=== PATIENT | male | born 1965 | race Caucasian/White ===

== ENCOUNTER 2021-08-08 10:18 | Inpatient (IN) | payer OTHER ==
[~2021-08-08] VITALS: Ht 180.3 cm; Wt 161.7 kg
[2021-08-08 10:55] LABS: Base Excess Venous -7.7 mmol/L; Bicarbonate Venous 18.1 mmol/L (24.0-30.0); PCO2 Venous 40.6 mmHg (38-42)
[2021-08-08 10:56] LABS: pH Blood Venous 7.28 (7.34-7.37)
[2021-08-08 11:00] LABS: BASOPHILS ABSOLUTE AUTO 0.02 K/mm3 (0.00-0.23); BASOPHILS PERCENT AUTO 0 % (0-2); EOSINOPHILS PERCENT AUTO 0 % (0-6); Hematocrit 44.3 % (37.0-53.0); Hemoglobin 14.8 g/dL (13.5-17.5); IMMATURE GRAN ABSOLUTE AUTO 0.06 K/mm3 (0.00-0.10); IMMATURE GRAN PERCENT AUTO 1 % (0-1); LYMPHOCYTES ABSOLUTE AUTO 1.04 K/mm3 (0.84-5.20); LYMPHOCYTES PERCENT AUTO 8 % (21-46); MONOCYTES ABSOLUTE AUTO 0.41 K/mm3 (0.16-1.47); MONOCYTES PERCENT AUTO 3 % (4-13); Mean Corpuscular HGB 32.6 pg (26.0-34.0); Mean Corpuscular HGB Conc 33.4 g/dL (31.5-36.5); Mean Corpuscular Volume 98 fL (80-100); Mean Platelet Volume 10.3 fL (9.1-12.4); NEUTROPHILS ABSOLUTE AUTO 11.03 K/mm3 (1.96-9.15); NEUTROPHILS PERCENT AUTO 88 % (41-73); Platelet Count 163 K/mm3 (150-400); RDW Coefficient Variation 14.6 % (11.7-14.2); RDW Standard Deviation 53.1 fL (35.1-46.3); Red Blood Cell Count 4.54 M/mm3 (4.30-5.90); White Blood Cell Count 12.56 K/mm3 (4.00-11.30)
[2021-08-08 11:15] LABS: Albumin, Blood 2.4 g/dL (3.4-5.0); Albumin/Globulin Ratio 0.5 (0.8-1.8); Bilirubin, Total 0.4 mg/dL (0.1-1.0); Bun/Creatinine Ratio 17.4 (12.0-20.0); Calcium, Blood 8.3 mg/dL (8.5-10.1); Creatinine, Blood 1.84 mg/dL (0.60-1.20); Globulin, Blood 4.7 g/dL (2.2-4.0); Magnesium, Blood 1.7 mg/dL (1.6-2.4); Potassium, Blood 4.7 mmol/L (3.5-5.5); Total Protein, Blood 7.1 g/dL (6.4-8.2); Troponin I 0.08 ng/mL (0.000-0.040)
[2021-08-08] MEDS ORDERED: ZESTRIL40 M1 PO (12:25)
[2021-08-08] MEDS ORDERED: CYCL10 PO (12:25)
[2021-08-08] MEDS ORDERED: Amoxicillin500 M1 PO (12:26)
[2021-08-08] MEDS ORDERED: Potassium Chlo20 ME1 PO (12:26)
[2021-08-08] MEDS ORDERED: GLIMEPIRIDE2 M2 PO (12:27)
[2021-08-08] MEDS ORDERED: METOPROLOL TART25 MG PO (12:27)
[2021-08-08 14:23] LABS: Creatine Kinase MB 3.3 ng/mL (0.0-3.6); Creatine Kinase MB Index 0.1 (0.0-4.0)
[2021-08-08 19:14] LABS: Source, Urine Clean Catch
[2021-08-08 19:19] LABS: Bilirubin, Urine Neg (Neg); Blood, Urine 5+ (Neg); Glucose Qualitative, Urine Neg (Neg); Ketones, Urine 2+ (Neg); Leukocyte Esterase, Urine 1+ (Neg); Nitrite, Urine Neg (Neg); Protein, Urine 4+ (Neg); Specific Gravity, Urine 1.015 (1.003-1.022); Urobilinogen, Urine NORM (Normal)
[2021-08-08 19:28] LABS: Appearance, Urine Clear (Clear); Color, Urine Yellow (P-Yellow)
[2021-08-08 19:36] LABS: Bacteria Few /hpf; Calcium Oxalate Crystals Few /hpf; Squamous Epithelial Cells Few /hpf (Few); White Blood Cells, Urine 0-2 /hpf (0-5)
[2021-08-08 19:37] LABS: U Amphetamine Screen Not Detected; U Barbituate Screen Not Detected; U Benzodiazapine Screen Not Detected; U Buprenorphine Screen Not Detected; U Cannabinoids Screen Not Detected; U Cocaine Screen Not Detected; U Methadone Screen Not Detected; U Methamphetamine Screen Not Detected; U Opiates Screen DETECTED; U Oxycodone Screen Not Detected; U Phencyclidine Screen Not Detected; U Propoxyphene Screen Not Detected
--- NOTE | 2021-08-08 19:45 | NUR ---
ADMISSION NOTES 1700-Rec'd pt from ED, AOX4, c/o SOB with exertion/movement, pt was on CPAP with FIO2 of 80% and SpO2 of 87%,, increased FIO2 to 100% with no improvement, RT called to bedside and settings changed to BIPAP with FIO2 of 100%. Pt's HR was ST and then it changed to A-fib RVR and was confirmed with ECG. HR sustained at 130's to 140's, made the hospitalist aware and consult was placed to beauty sales advisor. Dr. Melchor informed of pt's status, Cardizem 10mg given with no improvement, pt continues to desaturates and became diaphoretic, BG of 192. Order was placed to transfer to ICU, nursing report given to Candy-STACEY, metoprolol 25mg held due to possible intubation and per Dr. Melchor. Pt did not void since he arrived to PCU, made AGENCY DEVELOPMENT MANAGER aware that Toxiology and Urinalysis with culture is still pending and needs to be collected when pt voids. Pt's was at bedside during the entire time of this event.
--- NOTE | 2021-08-08 22:00 | NUR ---
ASSUMED CARE AT 1900 PT ARRIVED TO ICU JUST BEFORE SHIFT CHANGE. AT BEDSIDE. PT IS ALERT/ORIENTED X4 AND USES THE CALL LIGHT APPROPRIATLY. DENIES ANY SOB OR CHEST PAIN. BIPAP DEPENDENT WITH SETTINGS 18/14, FIO2 100%, SPO2 >88%. PT WAS TACHYCARDIC WITH HR 130-150'S; PLAN WAS TO GIVE DILTIAZEM BUT PT CONVERTED TO NSR WITH HR 80-90'S; DILTIAZEM PUSH AND GTT NOT STARTED. PT NOT ANXIOUS. NS INFUSING AT 75ML/HR. SEE SHIFT ASSESSMENT FOR FULL ASSESSMENT.
[2021-08-09 04:47] LABS: BASOPHILS ABSOLUTE AUTO 0.01 K/mm3 (0.00-0.23); BASOPHILS PERCENT AUTO 0 % (0-2); EOSINOPHILS PERCENT AUTO 0 % (0-6); Hematocrit 42.8 % (37.0-53.0); Hemoglobin 14.4 g/dL (13.5-17.5); IMMATURE GRAN ABSOLUTE AUTO 0.04 K/mm3 (0.00-0.10); IMMATURE GRAN PERCENT AUTO 0 % (0-1); LYMPHOCYTES ABSOLUTE AUTO 0.73 K/mm3 (0.84-5.20); LYMPHOCYTES PERCENT AUTO 7 % (21-46); MONOCYTES ABSOLUTE AUTO 0.39 K/mm3 (0.16-1.47); MONOCYTES PERCENT AUTO 4 % (4-13); Mean Corpuscular HGB 32.2 pg (26.0-34.0); Mean Corpuscular HGB Conc 33.6 g/dL (31.5-36.5); Mean Corpuscular Volume 96 fL (80-100); Mean Platelet Volume 10.3 fL (9.1-12.4); NEUTROPHILS PERCENT AUTO 88 % (41-73); Platelet Count 159 K/mm3 (150-400); RDW Coefficient Variation 14.6 % (11.7-14.2); RDW Standard Deviation 51.5 fL (35.1-46.3); Red Blood Cell Count 4.47 M/mm3 (4.30-5.90); White Blood Cell Count 10.07 K/mm3 (4.00-11.30)
[2021-08-09 05:44] LABS: Albumin/Globulin Ratio 0.5 (0.8-1.8); Bilirubin, Total 0.3 mg/dL (0.1-1.0); Bun/Creatinine Ratio 22.2 (12.0-20.0); Calcium, Blood 8.3 mg/dL (8.5-10.1); Creatinine, Blood 1.62 mg/dL (0.60-1.20); Globulin, Blood 4.4 g/dL (2.2-4.0); Magnesium, Blood 2.1 mg/dL (1.6-2.4); Potassium, Blood 4.7 mmol/L (3.5-5.5); Total Protein, Blood 6.4 g/dL (6.4-8.2)
--- NOTE | 2021-08-09 06:36 | NUR ---
END OF SHIFT SUMMARY NO ACUTE EVENTS OVERNIGHT. PT IS ALERT/ORIENTED X4 AND ABLE TO MAKE HIS NEEDS KNOWN. PT IS BIPAP DEPENDENT WITH SETTINGS 18/14, FIO2 100%; SPO2 POSITIONAL, WHEN PLACED ON HARD SIDE, SPO2 IS >90%, WHEN PLACED SUPINE SPO2 IS 85%; NO COMPLAINTS OF DYSPNEA OR CHEST PAIN. HR 70-90'S. SBP 100-170; HYDROLAZINE GIVEN ONCE FOR HTN. NS INFUSING AT 75ML/HR. WILL REPORT TO AM RN WHEN AVAILABLE.
--- NOTE | 2021-08-09 19:00 | NUR ---
ASSUME CARE NOTE: PATIENT LYING IN BED ON RIGHT SIDE. ON BIPAP, SETTINGS ARE 18/14 AT 100% AND CURRENTLY SATING 95%. HE IS A&OX4 AND CAN WEAKLY SILVER. HR AND BP WNL. HE IS NPO. SKIN IS WARM AND DRY. THERE IS GENERALIZED BRUISING AND AN SMALL OPEN SORE ON HIS RUQ AND RIGHT GARCIA. HE HAS NO COMPLAINTS OF PAIN. SEE SHIFT ASSESSMENT FOR DETAILS.
--- NOTE | 2021-08-09 22:00 | NUR ---
UPDATE: DESATING AND TACHYCARDIA CALLED DR. AVILA AND WAS INFORMED HE WENT HOME EARLY. STACEY KEENAN CALLED DR. BELLAMY AND INFORMED HIM THAT PT HAS BEEN DESATING TO 83-85% W/ TURNS AND NOT RECOVERING WITH HR IN THE 140-150'S. PT NOT IN DISTRESS AND DENIES SOB BUT IS NOT RECOVERING FROM REPOSITIONING. PRECEDEX DRIP STARTED AND RT EDY MADE ADJUSTMENTS TO BIPAP W/ NO IMPROVEMENTS. DR. BELLAMY STATES HE WILL INTUBATE. PT INFORMED, CALLED, AND PT PREPPED AND POSITIONED. SUPPLIES AND MEDS GATHERED FOR INTUBATION. 2225: VERSED 5MG IV PUSH 222: VERSED 5MG IV PUSH 222: PROPOFOL 80MG IV PUSH BY DR. BELLAMY 2229: INTUBATED- 8.0 ETT 25 @ GUMS 2231: PROPOFOL 20MG IV PUSH BY DR. BELLAMY & PROPOFOL GTT STARTED AT 50MCG/KG/MIN 2231: SUCC 200 IV PUSH 2232: PROPOFOL 50MG IV PUSH BY DR. BELLAMY 2235: NS BOLUS 1000ML 2240: LEVO GTT STARTED AT 20MCG/MIN 2310: SUCC 200 IV PUSH 2341: NIMBEX GTT AT 2MCG/KG/MIN & NS AT 75ML/HR STARTED OROGASTRIC TUBE, GONZÁLES, AND CVC LINE PLACED IN RIGHT SUBCLAVIAN. ALL LINES AND TUBES CONFIRMED BY XRAY. PT NOW SATING 96%, HR IN 60'S, SBP IN 110'S, BIS 40-50, AND TOF 2/4 AT 8 POWER.
--- NOTE | 2021-08-09 22:00 | NUR ---
UPDATE: FAMILY CALLED PT'S , ROBERTO, ON HIS PHONE AND FACETIMED. INFORMED HER OF PLAN TO INTUBATE AND PT AND WERE ABLE TO SPEAK TO ONE ANOTHER. INFORMED I WOULD CALL ONCE THE INTUBATION WAS COMPLETE.
[2021-08-09 23:49] LABS: Source, Urine Catheter
[2021-08-09 23:55] LABS: Bilirubin, Urine Neg (Neg); Blood, Urine 5+ (Neg); Glucose Qualitative, Urine Neg (Neg); Ketones, Urine 2+ (Neg); Leukocyte Esterase, Urine 1+ (Neg); Nitrite, Urine Neg (Neg); Protein, Urine 4+ (Neg); Urobilinogen, Urine NORM (Normal)
[2021-08-10] LABS: Appearance, Urine Hazy (Clear); Color, Urine Yellow (P-Yellow)
[2021-08-10 00:07] LABS: Amorphous Light (0-Heavy); Bacteria Few /hpf; Red Blood Cells, Urine TNTC /hpf (0-2); Squamous Epithelial Cells Rare /hpf (Few)
[2021-08-10 03:36] LABS: BASOPHILS ABSOLUTE AUTO 0.02 K/mm3 (0.00-0.23); BASOPHILS PERCENT AUTO 0 % (0-2); EOSINOPHILS PERCENT AUTO 0 % (0-6); Hematocrit 42.6 % (37.0-53.0); Hemoglobin 14.4 g/dL (13.5-17.5); IMMATURE GRAN ABSOLUTE AUTO 0.13 K/mm3 (0.00-0.10); IMMATURE GRAN PERCENT AUTO 1 % (0-1); LYMPHOCYTES ABSOLUTE AUTO 0.95 K/mm3 (0.84-5.20); LYMPHOCYTES PERCENT AUTO 5 % (21-46); MONOCYTES ABSOLUTE AUTO 1.11 K/mm3 (0.16-1.47); MONOCYTES PERCENT AUTO 6 % (4-13); Mean Corpuscular HGB 32.8 pg (26.0-34.0); Mean Corpuscular HGB Conc 33.8 g/dL (31.5-36.5); Mean Corpuscular Volume 97 fL (80-100); Mean Platelet Volume 10.6 fL (9.1-12.4); NEUTROPHILS ABSOLUTE AUTO 15.52 K/mm3 (1.96-9.15); NEUTROPHILS PERCENT AUTO 88 % (41-73); NRBC ABSOLUTE 0.03 K/mm3 (0.00-0.02); NRBC Auto 0.2 /100 WBC (0.0-0.2); Platelet Count 249 K/mm3 (150-400); RDW Coefficient Variation 14.7 % (11.7-14.2); RDW Standard Deviation 53.4 fL (35.1-46.3); Red Blood Cell Count 4.39 M/mm3 (4.30-5.90); White Blood Cell Count 17.73 K/mm3 (4.00-11.30)
[2021-08-10 03:47] LABS: PCO2 Arterial 40.1 mmHg (35-45); PO2 Arterial 122 mmHg (80-100); pH Blood Arterial 7.21 (7.35-7.45)
[2021-08-10 03:54] LABS: Albumin/Globulin Ratio 0.5 (0.8-1.8); Bilirubin, Total 0.3 mg/dL (0.1-1.0); Bun/Creatinine Ratio 29.1 (12.0-20.0); Calcium, Blood 8.2 mg/dL (8.5-10.1); Creatinine, Blood 1.58 mg/dL (0.60-1.20); Globulin, Blood 4.3 g/dL (2.2-4.0); Potassium, Blood 5.2 mmol/L (3.5-5.5); Total Protein, Blood 6.3 g/dL (6.4-8.2)
[2021-08-10 06:04] LABS: Base Excess Venous -12.4 mmol/L; Bicarbonate Venous 15.6 mmol/L (24.0-30.0); PCO2 Venous 37.1 mmHg (38-42); PO2 Venous 93.6 mmHg (38-42); pH Blood Venous 7.22 (7.34-7.37)
--- NOTE | 2021-08-10 06:27 | NUR ---
SHIFT SUMMARY: PATIENT IS NOW INTUBATED, PARALYZED, AND SEDATED. VENT SETTINGS: ACVC 27/450/25/100%. NIMBEX IS INFUSING AT 2MCG/KG/MIN, LEVO AT 15MCG/MIN, PROPOFOL 40MCG/KG/MIN, AND NS AT 75ML/HR. ALL VS WNL. BIS: 45 AND TOF IS 2/4 AT 10 POWER. GONZÁLES IS DRAINING DERRICK URINE TO GRAVITY. OGT ATTACHED TO L.I.S. WITH SCANT CLEAR DRAINAGE. NO BM THIS SHIFT. RSC CVC DRESSING IS C/D/I. HE IS PENDING A SPUTUM CX BUT HAS HAD NO ETT SECRETIONS. WILL REPORT TO ONCOMING RN WHEN AVAILABLE.
--- NOTE | 2021-08-10 09:00 | NUR ---
0700: SBAR FROM [facility] AT BEDSIDE AND FUNCTIONAL. IV GTT VERIFIED NIMBEX 2MCG/KG/MIN, PROPFOL 40MCG/KG/MIN W/ WEIGHT 181 KG, NOREPI 15MCG/MIN, SEE FLOWSHEET/ASSESSMENT. VSS. BLOOD DRAWN AND SENT TO LAB. 0800: DECREASED FIO2 TO 90%. SPOT REMAINS >96%. RT NOTIFIED AT 0900.
--- NOTE | 2021-08-10 09:32 | NUR ---
0915: DR. BELLAMY AT BEDSIDE. JOSESITO DISCUSSED WEANING OF FIO2 TO 70% BEFORE TITRATING DOWN PEEP. PT TO GO TO HIGH SLIDING SCALE REGULAR INSULIN. AWARE FO WBC AND RENAL LABS.
--- NOTE | 2021-08-10 16:23 | NUR ---
SHIFT SUMMARY NEURO: BIS 30-50 THROUGHOUT SHIFT. NIMBEX REMAINS AT 2MCG/KG/MIN, PROPOFOL AT 40MCG/KG/MIN. CARDIAC: SR W/ BBB THROUGHOUT SHIFT. TROPONIN PREVIOUSLY TRENDING UPWARD. STARTED BICARB IVF. WBC ELEVATED COMPARED TO YESTERDAY, DISCUSSED W/ DR. BELLAMY, CONTINUE ABX. NOREPI WEANED FROM 15MCG/MIN TO 2MCG/MIN OF 1600. RESP: AC-VC 27/450. PEEP DECREASED FROM 25 TO 23. FIO2 WEANED FROM 100% TO 70%. DR. BELLAMY STATES PLAN FOR MINIMUM PEEP OF 20 WITH WEANING AT THIS TIME. ONE EPISODE OF PROLONGED DESATURATION BUT SUSPICOUS FOR POOR WAVEFORM/PLETH CAUSE. MONITOR FOR WORSENING OF SUBCUTANEOUS EMPHYSEMA PER DR. BELLAMY. GI: TUBE FEEDS INITIATED. NO BM THIS SHIFT OF 162. HYPERGLYCEMIC WITH HIGH SLIDING SCALE REGULAR INSULIN ADDED. : MINIMALLY ADEQUATE UOP, SEE I/O'S. BORDERLINE HYPERKALEMIA. MK/SKIN: MINIMAL SEROUS DRAINAGE FROM 3CM ULCERATION TO ANTERIOR RLE. RESTRAINTS DISCONTINUED THIS AM. PSYCH: UPDATES PROVIDED X 2 TO DAUGHTER BRET, X 1 TO SPOUSE. NO VISITORS AT BEDSIDE SO FAR TODAY.
--- NOTE | 2021-08-10 19:00 | NUR ---
ASSUME CARE NOTE PT IS INTUBATED, PARALYZED, AND SEDATED. VETN SETTINGS: ACVC 27/450/22/70% AND SATING IN LOW 90%. NIMBEX INFUSING AT 2MCG/KG/MIN, PROPOFOL AT 40MCG/KG/MIN, CARDIZEM AT 5 MG/HR, AND SODIUM BICARB AT 150 MG/HR. THE BIS IS 40 AND TO4 IS 0/4 AT 10; STARTING TO TITRATE NIMBEX DOWN. HR IS 130-150 SO STARTING TO INCREASE CARDIZEM. GONZÁLES IS DRAINING CLOUDY YELLOW URINE TO GRAVITY. OGT TO TUBE FEEDS RUNNING AT GOAL. SKIN IS COOL IN BUE AND CANDLEMAKER BLE WITH GENERALIZED BRUISING AND POSSIBLE CELLULITIS TO BLE. THERE IS ALSO AN OPEN ULCER ON RIGHT GARCIA THAT IS OPEN TO AIR. SEE SHIFT ASSESSMENT FOR DETAILS.
[2021-08-11 03:56] LABS: BASOPHILS PERCENT AUTO 0 % (0-2); EOSINOPHILS PERCENT AUTO 0 % (0-6); Hematocrit 34.2 % (37.0-53.0); Hemoglobin 11.5 g/dL (13.5-17.5); IMMATURE GRAN ABSOLUTE AUTO 0.04 K/mm3 (0.00-0.10); IMMATURE GRAN PERCENT AUTO 1 % (0-1); LYMPHOCYTES ABSOLUTE AUTO 0.41 K/mm3 (0.84-5.20); LYMPHOCYTES PERCENT AUTO 5 % (21-46); MONOCYTES ABSOLUTE AUTO 0.49 K/mm3 (0.16-1.47); MONOCYTES PERCENT AUTO 6 % (4-13); Mean Corpuscular HGB 32.5 pg (26.0-34.0); Mean Corpuscular HGB Conc 33.6 g/dL (31.5-36.5); Mean Corpuscular Volume 97 fL (80-100); Mean Platelet Volume 10.4 fL (9.1-12.4); NEUTROPHILS ABSOLUTE AUTO 7.13 K/mm3 (1.96-9.15); NEUTROPHILS PERCENT AUTO 88 % (41-73); Platelet Count 191 K/mm3 (150-400); RDW Coefficient Variation 14.9 % (11.7-14.2); RDW Standard Deviation 53.2 fL (35.1-46.3); Red Blood Cell Count 3.54 M/mm3 (4.30-5.90); White Blood Cell Count 8.07 K/mm3 (4.00-11.30)
[2021-08-11 04:12] LABS: Albumin, Blood 2.1 g/dL (3.4-5.0); Anion Gap 6 mmol/L (6-16); Blood Urea Nitrogen 55 mg/dL (8-24); Bun/Creatinine Ratio 33.3 (12.0-20.0); CO2, Blood 26 mmol/L (21-32); Calcium, Blood 7.9 mg/dL (8.5-10.1); Chloride, Blood 105 mmol/L (98-108); Creatinine, Blood 1.65 mg/dL (0.60-1.20); Glomerular Filtration Rate 43 (60-); Glucose, Blood 564 mg/dL (70-99); Magnesium, Blood 2.2 mg/dL (1.6-2.4); Phosphorus, Blood 2.8 mg/dL (2.5-4.9); Potassium, Blood 4.2 mmol/L (3.5-5.5); Sodium, Blood 137 mmol/L (136-145)
--- NOTE | 2021-08-11 04:34 | NUR ---
UPDATE: HYPERGLYCEMIA PT'S GLUCOSE ON AM LABS CAME BACK 564. SPOKE WITH DR. SEALS WHO STATES HE WILL PLACE ORDER FOR LANTUS AND TO COVER W/ S/S FOR NOW.
--- NOTE | 2021-08-11 06:06 | NUR ---
SHIFT SUMMARY: PT REMAINS INTUBATED, PARALYZED, AND SEDATED. VENT SETTINGS ARE ACVC 27/450/22/90%. NIMBEX INFUSING AT 1.0MCG/KG/MIN, CARDIZEM AT 5MG/HR, PROPOFOL AT 40MCG/KG/MIN, AND BICARB AT 150ML/HR. TOF IS 2/4 AT 8 AND BIS HAS BEEN IN THE 40'S T/O THE SHIFT. HE HAS NOT REQUIRED PRESSORS AND HR HAS BEEN IN THE 80'S. GONZÁLES CONTINUES TO DRAIN CLOUDY YELLOW URINE TO GRAVITY WITH GOOD OUTPUT. OGT TO TF RUNNING AT GOAL WITH MINIMAL RESIDUALS. LONG ACTING INSULIN ADDED THIS MORNING FOR INCREASING BLOOD SUGAR. WILL REPORT TO ONCOMING RN WHEN AVAILABLE.
[2021-08-11 09:33] LABS: Glucose, Blood 553 mg/dL (70-99)
[2021-08-11 12:13] LABS: Glucose, Blood 586 mg/dL (70-99)
[2021-08-11 15:12] LABS: Glucose, Blood 557 mg/dL (70-99)
[2021-08-11 16:29] LABS: Glucose, Blood 532 mg/dL (70-99)
--- NOTE | 2021-08-11 18:32 | NUR ---
PT STABLE INTUBATED AND SEDATED WITH PROPOFOL AND PARALYZED WITH NIMBEX. INSULIN DRIP WAS ORDERED BY . CARDIZEM DRIP STOPPED, PT IN SINUS RHYTHM AND HEART RATE OF 68
--- NOTE | 2021-08-11 19:00 | NUR ---
ASSUME CARE NOTE: PATIENT IS INTUBATED, SEDATED, AND PARALYZED. VENT SETTINGS: ACVC 27/450/22/80%. TOF IS 0/4 AT 10 SO DECREASING NIMBEX GTT. BIS IS 44. NO COUGH OR GAG PRESENT. NIMBEX NOW INFUSING AT 1.0 MCG/KG/MIN, INSULIN AT 8 UNIT/HR, AND PROPOFOL AT 40 MCG/KG/MIN. HR AND BP WNL. GONZÁLES DRAINING CLOUDY YELLOW URINE TO GRAVITY. OGT IN PLACE RUNNING TF AT GOAL WITH SCANT RESIDUALS. SKIN IS WARM AND DRY WITH EDEMA NOTED TO BILAT HANDS AND BILAT LOWER EXTREMITIES. A SMALL ULCERATION IS NOTED TO THE RIGHT LOWER GARCIA SPEEDER HAND. SEE SHIFT ASSESSENT FOR DETAILS.
[2021-08-12 04:05] LABS: BASOPHILS PERCENT AUTO 0 % (0-2); EOSINOPHILS PERCENT AUTO 0 % (0-6); Hematocrit 35.8 % (37.0-53.0); Hemoglobin 12.1 g/dL (13.5-17.5); IMMATURE GRAN ABSOLUTE AUTO 0.06 K/mm3 (0.00-0.10); IMMATURE GRAN PERCENT AUTO 1 % (0-1); LYMPHOCYTES ABSOLUTE AUTO 0.32 K/mm3 (0.84-5.20); LYMPHOCYTES PERCENT AUTO 3 % (21-46); MONOCYTES ABSOLUTE AUTO 0.45 K/mm3 (0.16-1.47); MONOCYTES PERCENT AUTO 5 % (4-13); Mean Corpuscular HGB 32.6 pg (26.0-34.0); Mean Corpuscular HGB Conc 33.8 g/dL (31.5-36.5); Mean Corpuscular Volume 97 fL (80-100); Mean Platelet Volume 10.4 fL (9.1-12.4); NEUTROPHILS ABSOLUTE AUTO 8.82 K/mm3 (1.96-9.15); NEUTROPHILS PERCENT AUTO 91 % (41-73); NRBC ABSOLUTE 0.03 K/mm3 (0.00-0.02); NRBC Auto 0.3 /100 WBC (0.0-0.2); Platelet Count 227 K/mm3 (150-400); RDW Coefficient Variation 14.7 % (11.7-14.2); RDW Standard Deviation 52.5 fL (35.1-46.3); Red Blood Cell Count 3.71 M/mm3 (4.30-5.90); White Blood Cell Count 9.65 K/mm3 (4.00-11.30)
[2021-08-12 04:23] LABS: Albumin, Blood 2.1 g/dL (3.4-5.0); Anion Gap 5 mmol/L (6-16); Blood Urea Nitrogen 61 mg/dL (8-24); Bun/Creatinine Ratio 39.6 (12.0-20.0); CO2, Blood 26 mmol/L (21-32); Calcium, Blood 8.1 mg/dL (8.5-10.1); Chloride, Blood 108 mmol/L (98-108); Creatinine, Blood 1.54 mg/dL (0.60-1.20); Glomerular Filtration Rate 47 (60-); Glucose, Blood 336 mg/dL (70-99); Magnesium, Blood 2.6 mg/dL (1.6-2.4); Phosphorus, Blood 2.9 mg/dL (2.5-4.9); Potassium, Blood 4.1 mmol/L (3.5-5.5); Sodium, Blood 139 mmol/L (136-145)
--- NOTE | 2021-08-12 06:34 | NUR ---
SHIFT SUMMARY: NO ACUTE OVERNIGHT EVENTS. PATIENT REMAINS INTUBATED, PARALYZED, AND SEDATED. VENT SETTINGS ARE THE SAME AT ACVC 27/450/22/80%. TO4 IS 2/4 AT 6 AND BIS HAS REAMINED IN THE 40'S. VITALS ALL WNL. NIMBEX INFUSING AT 1MCG/KG/MIN, INSULIN AT 18 UNITS/HR, AND PROPOFOL AT 40 MCG/KG/MIN. GONZÁLES IS DRAINING YELLOW/GREEN URINE TO GRAVITY. OGT STILL IN PLACE RUNNING TF AT GOAL. NO BM THIS SHIFT. WILL UPDATE ONCOMING RN WHEN AVAILABLE.
--- NOTE | 2021-08-13 01:03 | NUR ---
WOUND TO RIGHT GARCIA 2 CM ROUND AND 1 CM DEEP CLEANSED WITH SKINTEGRITY AND COVERED WITH FOAM DRESSING. WOUND TO RIGHT CALF 2 CM ROUND AND 1 CM DEEP CLEANSED WITH SKINTEGRITY AND COVERED WITH FOAM DRESSING. LEFT INNER GARCIA WITH 3 CM LONG ABRASION CLEANSED WITH SKINTEGRITY AND COVERED WITH FOAM DRESSING. OTHER WOUNDS TO LEGS REMAIN DRY WITH SCABS IN PLACE.
[2021-08-13 03:29] LABS: BASOPHILS ABSOLUTE AUTO 0.01 K/mm3 (0.00-0.23); BASOPHILS PERCENT AUTO 0 % (0-2); EOSINOPHILS PERCENT AUTO 0 % (0-6); Hematocrit 35.7 % (37.0-53.0); Hemoglobin 12.2 g/dL (13.5-17.5); IMMATURE GRAN ABSOLUTE AUTO 0.14 K/mm3 (0.00-0.10); IMMATURE GRAN PERCENT AUTO 1 % (0-1); LYMPHOCYTES ABSOLUTE AUTO 0.44 K/mm3 (0.84-5.20); LYMPHOCYTES PERCENT AUTO 3 % (21-46); MONOCYTES ABSOLUTE AUTO 0.83 K/mm3 (0.16-1.47); MONOCYTES PERCENT AUTO 6 % (4-13); Mean Corpuscular HGB Conc 34.2 g/dL (31.5-36.5); Mean Corpuscular Volume 97 fL (80-100); Mean Platelet Volume 10.7 fL (9.1-12.4); NEUTROPHILS ABSOLUTE AUTO 12.35 K/mm3 (1.96-9.15); NEUTROPHILS PERCENT AUTO 90 % (41-73); NRBC ABSOLUTE 0.04 K/mm3 (0.00-0.02); NRBC Auto 0.3 /100 WBC (0.0-0.2); Platelet Count 240 K/mm3 (150-400); RDW Coefficient Variation 14.6 % (11.7-14.2); RDW Standard Deviation 52.1 fL (35.1-46.3); White Blood Cell Count 13.77 K/mm3 (4.00-11.30)
[2021-08-13 03:48] LABS: Albumin, Blood 1.8 g/dL (3.4-5.0); Anion Gap 6 mmol/L (6-16); Blood Urea Nitrogen 75 mg/dL (8-24); Bun/Creatinine Ratio 52.1 (12.0-20.0); CO2, Blood 26 mmol/L (21-32); Calcium, Blood 7.6 mg/dL (8.5-10.1); Chloride, Blood 109 mmol/L (98-108); Creatinine, Blood 1.44 mg/dL (0.60-1.20); Glomerular Filtration Rate 51 (60-); Glucose, Blood 386 mg/dL (70-99); Magnesium, Blood 2.4 mg/dL (1.6-2.4); Phosphorus, Blood 3.7 mg/dL (2.5-4.9); Potassium, Blood 4.4 mmol/L (3.5-5.5); Sodium, Blood 141 mmol/L (136-145)
--- NOTE | 2021-08-13 06:23 | NUR ---
SUMMARY PATIENT REMAINS INTUBATED AND SEDATED. ETT IN PLACE WITH VENT AC VC 27, TV 450, PEEP 22, FIO2 75% LUNG SOUNDS DECREASED T/O WITH SCANT AMT OF CLEAR SECRETIONS SUCTIONED FROM ETT. SMALL AMT OF BLOOD TINGED, YELLOW DRAINAGE FROM RIGHT NOSTRIL ONCE TONIGHT. SEDATED WITH PROPOFOL TITRATED TO 35 MCG WITH BIS 30-40 T/O NIGHT. NIMBEX 1 MCG WITH TRAIN OF 4 4/4, NO GAG, NO MOVEMENT SEEN TO EXTREMITIES, PUPILS SLUGGISH. CARDIZEM DRIP OFF HEART RATE 56 SINUS RHYTHM LEVOPHED REMAINS OFF. OG REMAINS IN PLACE WITH VITAL HP AT GOAL RATE OF 30 CC/HR WITH MIN RESIDUALS. PATIENT INCONT OF 2 SOFT BROWN STOOL DURING THE NIGHT.
--- NOTE | 2021-08-13 10:28 | NUR ---
DR. PRICE AWARE OF CALCIUM 7.6 AND ALBUMIN 1.8
--- NOTE | 2021-08-13 18:59 | NUR ---
PT REMAINS INTUBATED, SEDATED AND PARALIZED WITH NIMBEX. PT CURRENT FIO2 SETTING IS AT 75% PROPOFOL 40 NIMBEX 1.0 URINE OUTPUT 1300 PEEP AT 8 FIO2 70%
--- NOTE | 2021-08-13 23:25 | NUR ---
PATIENT HYPERTENSIVE AND HEART RATE UP TO 120'S AFIB AFTER HYDRALAZINE IV GIVEN FOR HYPERTENSION. LOPRESSOR IV GIVEN HR NOW 90-110'S IN AFIB SBP 140'S. PROPOFOL INCREASED TO 50 MCG DUE TO BIS 60'S.
[2021-08-14 03:54] LABS: BASOPHILS ABSOLUTE AUTO 0.02 K/mm3 (0.00-0.23); BASOPHILS PERCENT AUTO 0 % (0-2); EOSINOPHILS PERCENT AUTO 0 % (0-6); Hematocrit 37.8 % (37.0-53.0); Hemoglobin 12.7 g/dL (13.5-17.5); IMMATURE GRAN ABSOLUTE AUTO 0.27 K/mm3 (0.00-0.10); IMMATURE GRAN PERCENT AUTO 2 % (0-1); LYMPHOCYTES PERCENT AUTO 3 % (21-46); MONOCYTES ABSOLUTE AUTO 0.92 K/mm3 (0.16-1.47); MONOCYTES PERCENT AUTO 6 % (4-13); Mean Corpuscular HGB 32.5 pg (26.0-34.0); Mean Corpuscular HGB Conc 33.6 g/dL (31.5-36.5); Mean Corpuscular Volume 97 fL (80-100); Mean Platelet Volume 10.8 fL (9.1-12.4); NEUTROPHILS ABSOLUTE AUTO 13.75 K/mm3 (1.96-9.15); NEUTROPHILS PERCENT AUTO 89 % (41-73); NRBC ABSOLUTE 0.04 K/mm3 (0.00-0.02); NRBC Auto 0.3 /100 WBC (0.0-0.2); Platelet Count 285 K/mm3 (150-400); RDW Coefficient Variation 14.8 % (11.7-14.2); RDW Standard Deviation 52.5 fL (35.1-46.3); Red Blood Cell Count 3.91 M/mm3 (4.30-5.90); White Blood Cell Count 15.46 K/mm3 (4.00-11.30)
[2021-08-14 04:09] LABS: Albumin, Blood 1.7 g/dL (3.4-5.0); Anion Gap 6 mmol/L (6-16); Blood Urea Nitrogen 76 mg/dL (8-24); Bun/Creatinine Ratio 63.9 (12.0-20.0); CO2, Blood 27 mmol/L (21-32); Calcium, Blood 7.7 mg/dL (8.5-10.1); Chloride, Blood 110 mmol/L (98-108); Creatinine, Blood 1.19 mg/dL (0.60-1.20); Glomerular Filtration Rate >60 (60-); Glucose, Blood 379 mg/dL (70-99); Phosphorus, Blood 4.1 mg/dL (2.5-4.9); Potassium, Blood 4.5 mmol/L (3.5-5.5); Sodium, Blood 143 mmol/L (136-145)
--- NOTE | 2021-08-14 04:48 | NUR ---
DOCTOR PRICE IN TO SEE PATIENT, NOTIFIED OF RETURN TO AFIB WITH RVR AND ORDER OBTAINED FOR DILTIAZEM IF HR UP TO 140'S. DILTIAZEM IV GIVEN AND PATIENT BACK TO SINUS RHYTHM AT 0425. PLAN TO TITRATE NIMBEX OFF.
--- NOTE | 2021-08-14 06:43 | NUR ---
PATIENT REMAINS INTUBATED AND SEDATED WITH PROPOFOL 45 MCG. NIMBEX DRIP OFF AT 0500. PATIENT CONTINUES TO REST QUIETLY AT THIS TIME. MAILROOM COURIER SHOWING IN AND OUT OF AFIB, MEDICATED ONCE WITH A ONE TIME DILTIAZEM EARLY THIS MORNING. ETT WITH VENT AC VC 27, TV 450, PEEP 18, FIO2 65% RESP UP TO 30'S WITH NIMBEX OFF, MAINTAINING BIOX >90% OG REMAINS IN PLACE WITH VITAL HP AT GOAL RATE OF 30 CC/HR WITH MIN RESIDUALS.
--- NOTE | 2021-08-14 18:40 | NUR ---
PT STABLE, REMAINS INTUBATED AND SEDATED, NIMBEX REMAINS OFF. VENT NEW SETTINGS:ACVC 27/450/16/55% URINE OUTUPUT 1300. NO BOWEL MOVEMENT. PROPOFOL AT 40
--- NOTE | 2021-08-14 22:49 | NUR ---
ASSUMED CARE PATIENT LYING IN BED INTUBATED AND SEDATED ON PROPOFOL @ 40MCG/KG/MIN. VENT SETTINGS AC/VC 27/450/16/50% W/ SPO2 GREATER THAN 90%, RR 27-30'S. PATIENT IS COUGHING OCCASIONALLY. NS TKO INF. 18G TO LT AC AND POWER GLIDE TO YAW ARE SALINE LOCKED. TEMP GONZÁLES PATENT AND DRAINING, BUT TEMP PROBE IS NOT CONNECTED TO MONITOR. PATIENT CURRENTLY IN BILATERAL SOFT WRIST RESTRAINTS W/ NIMBEX TURNED OFF AND DISCONNECTED FROM PATIENT. REPORT COMPLETED W/ DAYSHIFT RN.
[2021-08-15 04:07] LABS: BASOPHILS ABSOLUTE AUTO 0.05 K/mm3 (0.00-0.23); BASOPHILS PERCENT AUTO 0 % (0-2); EOSINOPHILS PERCENT AUTO 0 % (0-6); Hematocrit 41.1 % (37.0-53.0); Hemoglobin 13.9 g/dL (13.5-17.5); IMMATURE GRAN ABSOLUTE AUTO 0.44 K/mm3 (0.00-0.10); IMMATURE GRAN PERCENT AUTO 2 % (0-1); LYMPHOCYTES ABSOLUTE AUTO 0.44 K/mm3 (0.84-5.20); LYMPHOCYTES PERCENT AUTO 2 % (21-46); MONOCYTES ABSOLUTE AUTO 1.26 K/mm3 (0.16-1.47); MONOCYTES PERCENT AUTO 5 % (4-13); Mean Corpuscular HGB 32.3 pg (26.0-34.0); Mean Corpuscular HGB Conc 33.8 g/dL (31.5-36.5); Mean Corpuscular Volume 96 fL (80-100); Mean Platelet Volume 10.8 fL (9.1-12.4); NEUTROPHILS ABSOLUTE AUTO 21.94 K/mm3 (1.96-9.15); NEUTROPHILS PERCENT AUTO 91 % (41-73); NRBC ABSOLUTE 0.03 K/mm3 (0.00-0.02); NRBC Auto 0.1 /100 WBC (0.0-0.2); Platelet Count 345 K/mm3 (150-400); RDW Coefficient Variation 14.6 % (11.7-14.2); White Blood Cell Count 24.13 K/mm3 (4.00-11.30)
[2021-08-15 04:26] LABS: Albumin, Blood 1.9 g/dL (3.4-5.0); Anion Gap 5 mmol/L (6-16); Blood Urea Nitrogen 75 mg/dL (8-24); CO2, Blood 27 mmol/L (21-32); Calcium, Blood 8.5 mg/dL (8.5-10.1); Chloride, Blood 111 mmol/L (98-108); Creatinine, Blood 1.12 mg/dL (0.60-1.20); Glomerular Filtration Rate >60 (60-); Glucose, Blood 277 mg/dL (70-99); Phosphorus, Blood 3.6 mg/dL (2.5-4.9); Potassium, Blood 4.3 mmol/L (3.5-5.5); Sodium, Blood 143 mmol/L (136-145); Triglycerides 199 mg/dL (30-160)
--- NOTE | 2021-08-15 06:41 | NUR ---
SHIFT SUMMARY PATIENT REMAINED INTUBATED AND SEDATED THROUGHOUT SHIFT. FIO2 WAS DECREASED FROM 50% TO 45% W/ SPO2 MAINTAINING GREATER THAN 90%. VENT SETTINGS AC/VC 27/450/16/45%. PROPOFOL REMAINED 40MCG/KG/MIN AND NS TKO. POWER GLIDE TO YAW AND 18G TO LT AC ARE SALINE LOCKED. ETT SECRETIONS BECAME GRADUALLY MORE RED TINGED AND NOW IS SUCTIONING BLOOD. BLOOD PRESSURE REMAINED ELEVATED DURING SHIFT AND INCREASED DURING TIMES OF CARE. NO PRN MEDICATIONS GIVEN AND BP RETURNED TO NORMOTENSIVE THIS MORNING.
--- NOTE | 2021-08-15 18:34 | NUR ---
SUMMARY PT INTUBATED AND SEDATED WITH PROPOFOL. PT WILL GRIMACE TO PAINFUL STIMULUS. NO SPONT MOVEMENT OF EXTREMITIES. PEEP DOWN FROM 16 TO 14. FIO2 50%. HYPERTENSIVE AT TIMES. GAVE FENTANYL THIS EVENING TO SEE IF THAT HELPS. TOLERATING TUBE FEED WITH 0 RESIDUALS. HAS REMAINED IN SR WITH PAC'S. NO OHTER CHANGES THIS SHIFT.
--- NOTE | 2021-08-15 20:45 | NUR ---
[place] of Care: Pt intubated, ett tube intact patent to vent-settings AC 27/450/40/50%. Pt responds to pain, Bilateral wrist restraints. Propofol at 40 mcgs infusing through right subclavian CVL. Tube feeding via og tube-patent w/30cc residual. Taylor cath intact patent and draining clear yellow urine. SR w/PAC at times. Bilateral wrist restraints. No s/s of acute distress noted at time of assessment.
[2021-08-16 04:16] LABS: BASOPHILS ABSOLUTE AUTO 0.04 K/mm3 (0.00-0.23); BASOPHILS PERCENT AUTO 0 % (0-2); EOSINOPHILS PERCENT AUTO 0 % (0-6); Hematocrit 40.8 % (37.0-53.0); Hemoglobin 13.7 g/dL (13.5-17.5); IMMATURE GRAN ABSOLUTE AUTO 0.26 K/mm3 (0.00-0.10); IMMATURE GRAN PERCENT AUTO 1 % (0-1); LYMPHOCYTES PERCENT AUTO 2 % (21-46); MONOCYTES ABSOLUTE AUTO 0.53 K/mm3 (0.16-1.47); MONOCYTES PERCENT AUTO 3 % (4-13); Mean Corpuscular HGB 32.5 pg (26.0-34.0); Mean Corpuscular HGB Conc 33.6 g/dL (31.5-36.5); Mean Corpuscular Volume 97 fL (80-100); NEUTROPHILS ABSOLUTE AUTO 18.79 K/mm3 (1.96-9.15); NEUTROPHILS PERCENT AUTO 94 % (41-73); Platelet Count 324 K/mm3 (150-400); RDW Coefficient Variation 14.7 % (11.7-14.2); RDW Standard Deviation 52.3 fL (35.1-46.3); Red Blood Cell Count 4.21 M/mm3 (4.30-5.90); White Blood Cell Count 20.02 K/mm3 (4.00-11.30)
[2021-08-16 04:34] LABS: Anion Gap 2 mmol/L (6-16); Blood Urea Nitrogen 74 mg/dL (8-24); Bun/Creatinine Ratio 70.5 (12.0-20.0); CO2, Blood 30 mmol/L (21-32); Calcium, Blood 8.5 mg/dL (8.5-10.1); Chloride, Blood 112 mmol/L (98-108); Creatinine, Blood 1.05 mg/dL (0.60-1.20); Glomerular Filtration Rate >60 (60-); Glucose, Blood 327 mg/dL (70-99); Magnesium, Blood 2.4 mg/dL (1.6-2.4); Potassium, Blood 4.8 mmol/L (3.5-5.5); Sodium, Blood 144 mmol/L (136-145)
--- NOTE | 2021-08-16 07:00 | NUR ---
Assumed care of pt at 0700. Report received from Zara IBARRA. 8.0 cm ETT, 25 cm at teeth. Vent settings ACVC 27/450/14/50%. Propofol at 40 mcg/kg/min. Pt sedated, resposive to painful stimulus. In bilat wrist restraints to prevent self-extubation. SR per monitor. BP stable. OG tube with feed and flush per orders.
--- NOTE | 2021-08-16 07:20 | NUR ---
Pt converted into rhythm with high heart rate. Rate 155-165. Irregular rhyhtm. Unable to tell SVT vs atrial fibrillation. BP stable. Metoprolol given. Will reassess.
--- NOTE | 2021-08-16 09:30 | NUR ---
Discussed pt's heart rate. After metprolol given, HR reduced to 120s. Orders given for 20 mg cardizem. Cardizem given, reduced HR to low 100s briefly. Flutter waves noted.
--- NOTE | 2021-08-16 11:02 | NUR ---
Pt's HR 130s. Discussed with Dr Gabriel and Dr Bose. Plan to start 25 mg metoprolol per tube Q8H.
--- NOTE | 2021-08-16 16:15 | NUR ---
SUMMARY Neuro: Pt initially on 40 mcg/kg/min propofol, this has been decreased and currently is at 25 mcg/kg/min. Responsive to painful stimulus. Cough and gag present. Does not follow commands at current level of sedation. 3 mm pupils, PERRL. Scleral edema noted. Musculoskeletal: Mobility limited by cords, lines, tubes, sedation, intubation. Pt requries staff assist with Q2H repositioning. Respiratory: 8.0 cm ETT, 25 cm at teeth. Lungs clear, diminished in bases. Small amounth of thick, rios sputum suctioned from ETT and pt's nares. Vent settings ACVC 27/450/14/75%. SpO2 90% or greater. Cardiac: Pt in atrial flutter with HR in 120s. PT metoprolol started today and also dose increased from 25 mg to 50 mg with goal of controlling HR. Will continue to reassess. Distant and irregular heart sounds. Capillary refill less than 3 seconds BUE and BLE. Nonpitting edema BUE, unchanged from initial assessment. 2+ pitting edema BLE, unchanged from initial assessment. GI: OG tube with VHP at goal rate of 30 mL/hr. 30 mL water flush Q4H. Maximum residual measured and reinstilled 85 mL. Most recent measurement was 0 mL. Initially, pt had hypoactive BT, but now they are normoactive. No signs of tenderness on palpation. No BM this shift. : Taylor catheter in place, patent and draining clear yellow urine. Excellent urine output this shift. Responded well to lasix. Skin: Unchagned from initial assessment. Rephotographed ulcer to right anterior lower leg. Photo sent to wound clinic for guidance on treatment regimen. Moderate amount of purulent discharge. Psychosocial: Unable to assess due to intubation and sedation.
[2021-08-16 21:25] LABS: Vancomycin, Trough 29.7 ug/mL (5.0-10.0)
[2021-08-17 03:18] LABS: BASOPHILS ABSOLUTE AUTO 0.04 K/mm3 (0.00-0.23); BASOPHILS PERCENT AUTO 0 % (0-2); EOSINOPHILS PERCENT AUTO 0 % (0-6); Hematocrit 39.8 % (37.0-53.0); Hemoglobin 13.1 g/dL (13.5-17.5); IMMATURE GRAN ABSOLUTE AUTO 0.22 K/mm3 (0.00-0.10); IMMATURE GRAN PERCENT AUTO 1 % (0-1); LYMPHOCYTES ABSOLUTE AUTO 0.32 K/mm3 (0.84-5.20); LYMPHOCYTES PERCENT AUTO 2 % (21-46); MONOCYTES ABSOLUTE AUTO 0.54 K/mm3 (0.16-1.47); MONOCYTES PERCENT AUTO 3 % (4-13); Mean Corpuscular HGB 32.3 pg (26.0-34.0); Mean Corpuscular HGB Conc 32.9 g/dL (31.5-36.5); Mean Corpuscular Volume 98 fL (80-100); NEUTROPHILS ABSOLUTE AUTO 19.58 K/mm3 (1.96-9.15); NEUTROPHILS PERCENT AUTO 95 % (41-73); Platelet Count 313 K/mm3 (150-400); RDW Standard Deviation 54.4 fL (35.1-46.3); Red Blood Cell Count 4.06 M/mm3 (4.30-5.90)
[2021-08-17 03:34] LABS: Anion Gap 3 mmol/L (6-16); Blood Urea Nitrogen 68 mg/dL (8-24); Bun/Creatinine Ratio 63.6 (12.0-20.0); CO2, Blood 28 mmol/L (21-32); Calcium, Blood 8.3 mg/dL (8.5-10.1); Chloride, Blood 112 mmol/L (98-108); Creatinine, Blood 1.07 mg/dL (0.60-1.20); Glomerular Filtration Rate >60 (60-); Glucose, Blood 346 mg/dL (70-99); Sodium, Blood 143 mmol/L (136-145)
--- NOTE | 2021-08-17 06:14 | NUR ---
SUMMARY NEURO- PT SEDATED, ATTEMPT TO DECREASE SEDATION RESULTED IN DIAPHORESIS, HTN, AND PT BITING TUBE. SEDATION BACK AT START OF SHIFT LEVEL. COUGH AND GAG PRESENT BUT WEAK. PERRL 3MM SLUGGISH. CV HR WAS 150'S BUT HAS DECREASED OVER THE NIGHT AND HAS BEEN BETWEEN SVT, ST, AND AFLUTTER. 100'S TO 156 HR. BP HAS BEEN STABLE. 120-140'S MOSTLY WITH THE EARLY HTN WITH LESS SEDATION. RESP. NO VENT CHANGES OVER NIGHT. CLEAR AND DIM IN BASES. SPO2 MAINTAINED 88% OR ABOVE ALL NIGHT. GI NO BM OVER NIGHT. BS ACTIVE. TF AT GOAL. 2300ML OUT FOR SHIFT, LIGHT DERRICK AND CLEAR SKIN NO CHANGES.
--- NOTE | 2021-08-17 07:15 | NUR ---
Assumed care of pt at 0700. Report received from Jose IBARRA. Pt sedated with 25 mcg/kg/min propofol. Amiodarone at 0.5 mg/min. 8.0 cm ETT is 25 cm at teeth. Vent settings ACVC 27/450/14/75%. SpO2 97%. Atrial flutter per monitor, rate 90s. BP stable. OG tube with feed and flush per orders. 0 mL residual measured.
--- NOTE | 2021-08-17 09:10 | NUR ---
SEDATION INTERRUPTION Pt's sedation stopped for about 45 minutes. In this time, pt became more alert, responsive to verbal stimulus. Pt did not fully open eyes, however he has significant scleral edema. Did not financial health counselor this RN's hands or turn head when instructed to do so. Sedation restarted due to upward trend in HR and BP, as well and increased coughing.
--- NOTE | 2021-08-17 09:38 | NUR ---
Dr Fuller and Dr Obregon in to see pt. Discussed blood sugars. Plan for Semglee to be increased.
[2021-08-17 10:08] LABS: Vancomycin, Random 19.9 ug/mL
--- NOTE | 2021-08-17 12:11 | NUR ---
UPDATE Bedbath complete. Pt tolerated well. Powder applied to folds. Vent settings ACVC 27/450/14/60%. SpO2 90% or greater. Atrial flutter per monitor, rate 95. BP stable. Tube feed formula and rate changed. 0 mL residual measured. Pt has successfully had one BM.
--- NOTE | 2021-08-17 18:45 | NUR ---
SUMMARY Neuro: Propofol currently is at 25 mcg/kg/min. Responsive to painful stimulus. Cough and gag present. Does not follow commands at current level of sedation. 3 mm pupils, PERRL. Scleral edema noted. Musculoskeletal: Mobility limited by cords, lines, tubes, sedation, intubation. Pt requries staff assist with Q2H repositioning. Respiratory: 8.0 cm ETT, 25 cm at teeth. Lungs clear, diminished in bases. Small amounth of thick, rios sputum suctioned from ETT and pt's nares. Vent settings ACVC 27/450/14/60%. SpO2 90% or greater. Cardiac: SR, rate in 60s. Amiodarone drip remains at 0.5 mg/min. Per Dr Fuller, drip to be continued overnight. Distant heart sounds. Capillary refill less than 3 seconds BUE and BLE. Nonpitting edema BUE, unchanged from initial assessment. 1+ pitting edema BLE, unchanged from initial assessment. GI: OG tube with pivot at goal rate of 35 mL/hr. 30 mL water flush Q4H. Maximum residual measured and reinstilled 10 mL. Normal BT. Pt had bowel movement this shift. : Taylor catheter in place, patent and draining clear yellow urine. Excellent urine output this shift. Skin: Unchagned from initial assessment. Psychosocial: Unable to assess due to intubation and sedation.
--- NOTE | 2021-08-18 06:32 | NUR ---
SUMMARY NEURO. PT INCREASED ON SEDATION. HTN AND BITING TUBE. NOT FOLLOWING COMMANDS, COUGH AND GAG PRESENT. PERRL 3MM RESP. COARS AT START OF SHIFT. CLEAR T/O WITH SUCTIONING. CV. PT SB TO NSR OVER NIGHT. BP HTN OF 180'S SBP. GI SMEAR OF STOOL. ACTIVE BS. TF AT GOAL. NO RESIDUALS. . 1200ML'S OF OUTPUT. CLEAR YELLOW TO DERRICK UOP. SKIN NO CHANGES
--- NOTE | 2021-08-18 07:00 | NUR ---
ASSUMED CARE: I have assumed care of pt at this time.
[2021-08-18 08:18] LABS: BASOPHILS ABSOLUTE AUTO 0.03 K/mm3 (0.00-0.23); BASOPHILS PERCENT AUTO 0 % (0-2); EOSINOPHILS ABSOLUTE AUTO 0.01 K/mm3 (0.00-0.68); EOSINOPHILS PERCENT AUTO 0 % (0-6); Hematocrit 40.3 % (37.0-53.0); Hemoglobin 12.9 g/dL (13.5-17.5); IMMATURE GRAN PERCENT AUTO 2 % (0-1); LYMPHOCYTES ABSOLUTE AUTO 0.69 K/mm3 (0.84-5.20); LYMPHOCYTES PERCENT AUTO 3 % (21-46); MONOCYTES ABSOLUTE AUTO 1.16 K/mm3 (0.16-1.47); MONOCYTES PERCENT AUTO 6 % (4-13); Mean Corpuscular HGB 32.1 pg (26.0-34.0); Mean Corpuscular Volume 100 fL (80-100); Mean Platelet Volume 11.4 fL (9.1-12.4); NEUTROPHILS ABSOLUTE AUTO 18.09 K/mm3 (1.96-9.15); NEUTROPHILS PERCENT AUTO 89 % (41-73); Platelet Count 318 K/mm3 (150-400); RDW Coefficient Variation 15.1 % (11.7-14.2); Red Blood Cell Count 4.02 M/mm3 (4.30-5.90); White Blood Cell Count 20.38 K/mm3 (4.00-11.30)
[2021-08-18 08:31] LABS: Anion Gap 4 mmol/L (6-16); Blood Urea Nitrogen 75 mg/dL (8-24); Bun/Creatinine Ratio 68.8 (12.0-20.0); CO2, Blood 27 mmol/L (21-32); Calcium, Blood 8.5 mg/dL (8.5-10.1); Chloride, Blood 112 mmol/L (98-108); Creatinine, Blood 1.09 mg/dL (0.60-1.20); Glomerular Filtration Rate >60 (60-); Glucose, Blood 334 mg/dL (70-99); Potassium, Blood 4.9 mmol/L (3.5-5.5); Sodium, Blood 143 mmol/L (136-145)
[2021-08-18 11:01] LABS: Vancomycin, Random 19.6 ug/mL
--- NOTE | 2021-08-18 18:40 | NUR ---
END OF SHIFT SUMMARY: Pt required a dose of PRN hydralazine for hypertension this AM. BP improved after lopressor per tube. Vent settings currently AC/VC, FIO2 60%, TV 450, Rate 27, PEEP 14. Attempted to titrate FiO2 down to 50% today, however spO2 dropped into 80's. Propofol currently at 30; some wincing noted with suction and turning, but pt appears otherwise comfortable. Large liquid BM this afternoon. Will continue to monitor until report given to oncoming nurse.
[2021-08-19 03:24] LABS: BASOPHILS ABSOLUTE AUTO 0.03 K/mm3 (0.00-0.23); BASOPHILS PERCENT AUTO 0 % (0-2); EOSINOPHILS PERCENT AUTO 0 % (0-6); Hematocrit 38.1 % (37.0-53.0); Hemoglobin 12.5 g/dL (13.5-17.5); IMMATURE GRAN ABSOLUTE AUTO 0.33 K/mm3 (0.00-0.10); IMMATURE GRAN PERCENT AUTO 2 % (0-1); LYMPHOCYTES ABSOLUTE AUTO 0.46 K/mm3 (0.84-5.20); LYMPHOCYTES PERCENT AUTO 3 % (21-46); MONOCYTES ABSOLUTE AUTO 0.94 K/mm3 (0.16-1.47); MONOCYTES PERCENT AUTO 6 % (4-13); Mean Corpuscular HGB 32.4 pg (26.0-34.0); Mean Corpuscular HGB Conc 32.8 g/dL (31.5-36.5); Mean Corpuscular Volume 99 fL (80-100); Mean Platelet Volume 11.4 fL (9.1-12.4); NEUTROPHILS ABSOLUTE AUTO 15.01 K/mm3 (1.96-9.15); NEUTROPHILS PERCENT AUTO 90 % (41-73); Platelet Count 311 K/mm3 (150-400); RDW Coefficient Variation 15.1 % (11.7-14.2); RDW Standard Deviation 54.3 fL (35.1-46.3); Red Blood Cell Count 3.86 M/mm3 (4.30-5.90); White Blood Cell Count 16.77 K/mm3 (4.00-11.30)
[2021-08-19 03:39] LABS: Anion Gap 2 mmol/L (6-16); Blood Urea Nitrogen 76 mg/dL (8-24); CO2, Blood 27 mmol/L (21-32); Calcium, Blood 8.4 mg/dL (8.5-10.1); Chloride, Blood 114 mmol/L (98-108); Creatinine, Blood 1.07 mg/dL (0.60-1.20); Glomerular Filtration Rate >60 (60-); Glucose, Blood 314 mg/dL (70-99); Magnesium, Blood 2.7 mg/dL (1.6-2.4); Phosphorus, Blood 3.4 mg/dL (2.5-4.9); Potassium, Blood 4.9 mmol/L (3.5-5.5); Sodium, Blood 143 mmol/L (136-145)
--- NOTE | 2021-08-19 05:24 | NUR ---
summary no acute changes over night NEURO- PT STILL ON PROPOFOL. NO EXTREMITY MOVEMENT. HAS A COUGH AND GAG INTACT. GRIMACES TO PAIN AND ORAL CARE. PERRL 3MM CV- SB-SR. 50-65 HR BP WNL. RESP- COARSE AND CLEARS WITH SUCTIONING. SPO2 STABLE MID 90'S ALL NIGHT, GI. TF AT GOAL. BM X 1. LIQUID MED AMOUNT. . GOOD UOP FOR SHIFT. DERRICK WITH SEDIMENT. SKIN SC CVL HAS SOME BLOOD OOZING FROM SITE. PICC POSSIBLE TO REPLACE CVL.
--- NOTE | 2021-08-19 07:00 | NUR ---
ASSUME CARE: I have assumed care of pt at this time.
--- NOTE | 2021-08-19 18:57 | NUR ---
SHIFT SUMMARY: FI02 reduced to 50%. PICC line placed in LUE. Quad lumen subclavian was removed due to oozing blood. Propofol still at 30 mcg/kg/min; was not titrated down due to facial grimacing during turns and biting down on ETT. Large liquid BM this afternoon. Pt's mother called this morning for an update, this RN spoke to her.
[2021-08-20 03:34] LABS: BASOPHILS ABSOLUTE AUTO 0.04 K/mm3 (0.00-0.23); BASOPHILS PERCENT AUTO 0 % (0-2); EOSINOPHILS ABSOLUTE AUTO 0.01 K/mm3 (0.00-0.68); EOSINOPHILS PERCENT AUTO 0 % (0-6); Hematocrit 39.8 % (37.0-53.0); Hemoglobin 12.9 g/dL (13.5-17.5); IMMATURE GRAN ABSOLUTE AUTO 0.64 K/mm3 (0.00-0.10); IMMATURE GRAN PERCENT AUTO 3 % (0-1); LYMPHOCYTES PERCENT AUTO 4 % (21-46); MONOCYTES ABSOLUTE AUTO 1.32 K/mm3 (0.16-1.47); MONOCYTES PERCENT AUTO 7 % (4-13); Mean Corpuscular HGB 32.1 pg (26.0-34.0); Mean Corpuscular HGB Conc 32.4 g/dL (31.5-36.5); Mean Corpuscular Volume 99 fL (80-100); Mean Platelet Volume 11.6 fL (9.1-12.4); NEUTROPHILS ABSOLUTE AUTO 17.56 K/mm3 (1.96-9.15); NEUTROPHILS PERCENT AUTO 87 % (41-73); Platelet Count 342 K/mm3 (150-400); RDW Standard Deviation 54.9 fL (35.1-46.3); Red Blood Cell Count 4.02 M/mm3 (4.30-5.90); White Blood Cell Count 20.27 K/mm3 (4.00-11.30)
[2021-08-20 03:49] LABS: Anion Gap 4 mmol/L (6-16); Blood Urea Nitrogen 74 mg/dL (8-24); CO2, Blood 26 mmol/L (21-32); Calcium, Blood 8.5 mg/dL (8.5-10.1); Chloride, Blood 113 mmol/L (98-108); Glomerular Filtration Rate >60 (60-); Glucose, Blood 306 mg/dL (70-99); Magnesium, Blood 2.8 mg/dL (1.6-2.4); Phosphorus, Blood 3.7 mg/dL (2.5-4.9); Sodium, Blood 143 mmol/L (136-145)
--- NOTE | 2021-08-20 05:43 | NUR ---
SUMMARY NEURO. PT SEDATED. COUGH GAG INTACT. NO CHANGES FROM PREVIOUS SHEET TAILER. OPENS MOUTH WITH ORAL CARE BUT NOT TO COMMAND. DOES NOT TRACK. IS RESTRAINED CV SB TO NSR AND SOME SINUS ARRYTHMIA. BP HAS BEEN STABLE 140-160SBP. PALPABLE PULSES X 4. RESP. ABLE TO WEAN FIO2 PER RT. 27/450/12/45% CLEAR T/O DIM BASES GI TF AT GOAL. NO BM. ACTIVE BS GOOD UOP. CLEAR DERRICK SKIN OOZING FROM CVL SITE ON RSUBCLAV. DRESSING CHANGED WITH LOBO.
--- NOTE | 2021-08-20 07:00 | NUR ---
ASSUME CARE: I have assumed care of pt at this time.
[2021-08-20 08:07] LABS: Base Excess Venous 0.3 mmol/L; Bicarbonate Venous 24.4 mmol/L (24.0-30.0); PCO2 Venous 38.2 mmHg (38-42); PO2 Venous 46.1 mmHg (38-42); pH Blood Venous 7.42 (7.34-7.37)
--- NOTE | 2021-08-20 18:50 | NUR ---
SHIFT ASSESSMENT: FIO2 weaned to 40%. Propofol now at 15. Pt moving mouth and will attempt to open eyes. No purposeful movement of extremities noted. Large, foul smelling, liquid BM this afternoon. PICC line dressing changed today and giancarlo placed over insertion site due to oozing blood. Dressings changed for venous ulcers on BLE. Will continue to monitor pt until report given to oncoming nurse.
[2021-08-20 22:26] LABS: C DIFFICILE DNA NEGATIVE (Negative)
[2021-08-21 05:16] LABS: Albumin, Blood 1.5 g/dL (3.4-5.0); Anion Gap 4 mmol/L (6-16); Blood Urea Nitrogen 66 mg/dL (8-24); Bun/Creatinine Ratio 68.8 (12.0-20.0); CO2, Blood 25 mmol/L (21-32); Calcium, Blood 8.4 mg/dL (8.5-10.1); Chloride, Blood 117 mmol/L (98-108); Creatinine, Blood 0.96 mg/dL (0.60-1.20); Glomerular Filtration Rate >60 (60-); Glucose, Blood 204 mg/dL (70-99); Phosphorus, Blood 3.3 mg/dL (2.5-4.9); Potassium, Blood 4.8 mmol/L (3.5-5.5); Sodium, Blood 146 mmol/L (136-145)
--- NOTE | 2021-08-21 06:13 | NUR ---
SUMMARY NEURO- PT SEDATED ON PROPOFOL. DECREASED RATE ON DS BUT PT WAS FIGHTING VENT AND BITING TUBE. INCREASED BUT WAS ABLE TO DECREASE AROUND 0400. GAG/COUGH INTQACT, PERRL 3MM SLUGGISH CV- SB,NSR, & SINUS ARRYTHMIAS. BP STABLE AND MILD HTN. PALPABLE PULSES X 4 3+EDEMA IN HANDS AND FEET. RESP- CLEAR, LOTS OF SECRETIONS THICK AND BLOOD TINGED FROM INLINE. ORAL SECRETIONS ALCAZAR. SPO2 >95% ALL NIGHT. VENT NOT ADJUSTED THIS SHIFT. 27/450/12/40% GI- TF AT GOAL, HELD DOCUSATE FOR LARGE LIQUID BM TODAY. ACTIVE BS. CLEAR YELLOW, 1400+ UOP. VERY EDEMETOUS SKIN. SEE CHART FOR PHOTOS. VENOUS STASIS ULCERS COVERED BY MEPILEX, Q4DAY DSG CHG'S. HANDS AND FEET ELEVATED. FOOT DROP BOOTS PLACED.
--- NOTE | 2021-08-21 07:43 | NUR ---
Received report from Jose IBARRA. He is intubated and lightly sedated. He has 8.0 ET and is 25 cm at teeth with vent settings of 27/450/35%/12 and sats 97%. Oral care, am care, and repositioning done while in room. He has 18ga PowerGlide to YAW and dressing intact and site WNL's and is SL./ He also has PICC line to YAW and is oozing blood and will leave dressing until tomorrow to allow to clot.PICC line is infusing Propofol at 15 mdcg/kg/min and NS TKO. He is in bilateral soft wrist restraints for line and tube safety. He has bilateral MAX boots to LE's. He has multiple dressings to bilateral calves from existing wounds from prior to admission that we are treating.
--- NOTE | 2021-08-21 10:17 | NUR ---
Patient continues to cough frequently and increased Propofol to 30 mcg/kg/min and increased FiO2 40%. Bloody secretions from ET and spoke with Dr Melchor and will decrease Lovenox to 90 mg BID. Repositioned patient. Changed TF setup and Propofol lines.
[2021-08-21 11:54] LABS: Vancomycin, Trough 23.2 ug/mL (5.0-10.0)
--- NOTE | 2021-08-21 12:09 | NUR ---
No significant changes since last note. Propofol remains at 30 mcg/kg/min, NS TKO. Repositioned and Changed circuit on vent that blood in it. Vent settings are 27/450/40/12 and sats 95%.
--- NOTE | 2021-08-21 14:10 | NUR ---
Significant other at bedside. Gave updates. Repositioned, oral care, cath care done. No changes to vent or gtts.
--- NOTE | 2021-08-21 16:28 | NUR ---
Patients daughter came by briefly. Vent settings 27/450/35/12 and sats 93%. Propofol at 30 mcg/kg/min and NS TKO. Repositioned and pulled up in bed. No stool so far this shift. Bloody secretions continue from ET. Oral care done.
--- NOTE | 2021-08-21 18:07 | NUR ---
Patient continues with sedation, vent settings 27/450/35/12 and sats 95%. Propofol at 30 mcg/kg/min and has reduced his coughing. Blood has decreased from ET and is more brown and reduced to moderate amounts. Left arm is swollen and firm and received order for US LUE and they just left and will await results. Nakia boots remains in place. mepelex dressing over wounds to bilateral LE's C/D/I. Bilateral wrist restraints remains in place for line and tube safety.
--- NOTE | 2021-08-21 19:39 | NUR ---
Assumed care. Report received from vinita IBARRA. Pt in bed, sedated and on ventilator via ETT. Vent settings: AC/VC27/450/12/35%. OG Tube in place, tube feed running at 35ml/hr. PICC and Powerglide in YAW. IV pump settings: propofol 30 mcg/kg/min, NS 10 ml/hr. Taylor catheter in place, draining clear/yellow urine. Vital signs stable, no acute needs noted at this time. Will continue to monitor.
[2021-08-22 04:13] LABS: BASOPHILS ABSOLUTE AUTO 0.07 K/mm3 (0.00-0.23); BASOPHILS PERCENT AUTO 0 % (0-2); EOSINOPHILS ABSOLUTE AUTO 0.02 K/mm3 (0.00-0.68); EOSINOPHILS PERCENT AUTO 0 % (0-6); Hemoglobin 10.4 g/dL (13.5-17.5); IMMATURE GRAN ABSOLUTE AUTO 0.92 K/mm3 (0.00-0.10); IMMATURE GRAN PERCENT AUTO 3 % (0-1); LYMPHOCYTES ABSOLUTE AUTO 1.51 K/mm3 (0.84-5.20); LYMPHOCYTES PERCENT AUTO 5 % (21-46); MONOCYTES ABSOLUTE AUTO 2.22 K/mm3 (0.16-1.47); MONOCYTES PERCENT AUTO 7 % (4-13); Mean Corpuscular HGB 32.7 pg (26.0-34.0); Mean Corpuscular HGB Conc 32.5 g/dL (31.5-36.5); Mean Corpuscular Volume 101 fL (80-100); Mean Platelet Volume 11.6 fL (9.1-12.4); NEUTROPHILS ABSOLUTE AUTO 25.21 K/mm3 (1.96-9.15); NEUTROPHILS PERCENT AUTO 84 % (41-73); Platelet Count 294 K/mm3 (150-400); RDW Standard Deviation 55.5 fL (35.1-46.3); Red Blood Cell Count 3.18 M/mm3 (4.30-5.90); White Blood Cell Count 29.95 K/mm3 (4.00-11.30)
[2021-08-22 04:33] LABS: Albumin, Blood 1.5 g/dL (3.4-5.0); Anion Gap 6 mmol/L (6-16); Blood Urea Nitrogen 67 mg/dL (8-24); Bun/Creatinine Ratio 69.6 (12.0-20.0); CO2, Blood 23 mmol/L (21-32); Calcium, Blood 8.3 mg/dL (8.5-10.1); Chloride, Blood 116 mmol/L (98-108); Creatinine, Blood 0.96 mg/dL (0.60-1.20); Glomerular Filtration Rate >60 (60-); Glucose, Blood 277 mg/dL (70-99); Phosphorus, Blood 4.3 mg/dL (2.5-4.9); Potassium, Blood 4.8 mmol/L (3.5-5.5); Sodium, Blood 145 mmol/L (136-145)
--- NOTE | 2021-08-22 06:20 | NUR ---
Shift summary. Pt continues in bed, sedated and ventilated. Vent settings: AC/VC 27/450/10/35%. OG tube in place, tube feed running at 35 ml/hr. PICC line removed at beginning of shift, second powerglide placed in JUDITH. Powerglide in YAW. IV pump running propofol at 25 mcg/kg/min. Taylor catheter in place, draining clear/yellow urine, 1200 out this shift. Pt left arm swollen, measured forearm at beginning of shift, 38.5cm, last measurement 37.5cm after PICC removed and pressure bandage removed. See shift assessment for details. Will continue to monitor and report off to dayshift RN.
--- NOTE | 2021-08-22 07:18 | NUR ---
Received report from Jaguar IBARRA/Jose IBARRA. Patient is intubated and lightly sedated, he has mild withdrawls with oral care. He has 8.0 ET and is 25 cm at teeth with vent settings 27/450/30/10 with sats >90%. He has two PowerGlides bilateral upper arm and left is 18ga and right is 20ga and is infusing Propofol at 30 mcg/kg/min and NS TKO. He has solorzano draining to gravity light zan urined in adequate amounts. He has bilateral wounds to lower calves and have dressings that C/D/I. He has bilateral megan boots in place. He is also in bilateral soft wrist restraints.
--- NOTE | 2021-08-22 08:00 | NUR ---
Received report from Noc RN. Patient is intubated and sedated, she has 7.5 ET with vent settings of 12/450/30/5 with sats 100%. Patient has RIS and is infusing NS TKO, NS at 75, Propofol 50 mcg/kg/min. Patient has NG to right nares with light coffe ground/brown output. She has 14Fr Taylor draining to gravity yellow urine in adequate amounts. She has mid line incsion with wound vac in place with serosanguinous output, moderate amounts. She has pink heel protectors bilaterally. She is in bilateral soft wrist restraints.
--- NOTE | 2021-08-22 09:34 | NUR ---
Dr Melchor has been in room to assess, no new orders. No vent or gtt setting changes. Propofol set changed out. Repositioned .
--- NOTE | 2021-08-22 12:00 | NUR ---
Patien t Peep reduced to 8 at 1100 and sats remains >92%. He has new hematoma between axillary and left nipple and showed Dr Melchor and placed order for US. No other changes to vent settings or gtt's, VSS see EMR. No changes in circumference of left arm from last shift.
--- NOTE | 2021-08-22 14:00 | NUR ---
US done and gave results to Dr Melchor and he is stopping Lovenox next two doses. Vent settings still at 27/450/30/8 and sats >90%. Propofol at 30 mcg/kg/min. No other changes to care.
--- NOTE | 2021-08-22 17:45 | NUR ---
Patient is unchanged. Vent settings 27/450/30/8 and sats >90%. Propofol at 30 mcg/kg/min. Arm circumference remains unchanges and pulses by doppler, hematoma seems reduced slightly. Dressings on LE's bilateraly C/D/I. Remains out of restraints and little to no movement with extremities. MAX boots remains bilateraly. VSS, See EMR
--- NOTE | 2021-08-22 19:18 | NUR ---
Assumed care. Report received from dayshift RN. PT in bed, sedated and on ventilator via ETT. Vent settings: AC/VC 27/450/8/30%. OG tube in place, tube feed running at 35ml/hr. Powerglides x2, YAW, JUDITH. IV pump running propofol at 30 mcg/kg/min. Taylro catheter in place, draining clear/yellow urine. Patient's left arm swollen, hard to touch, pt had ultrasound during dayhift which revealed large hematoma in upper part of extremity, will continue to monitor. No other acute needs noted, see shift assessment for details.
[2021-08-23 06:40] LABS: Albumin, Blood 1.5 g/dL (3.4-5.0); Anion Gap 7 mmol/L (6-16); Blood Urea Nitrogen 78 mg/dL (8-24); Bun/Creatinine Ratio 74.3 (12.0-20.0); CO2, Blood 23 mmol/L (21-32); Calcium, Blood 8.3 mg/dL (8.5-10.1); Chloride, Blood 116 mmol/L (98-108); Creatinine, Blood 1.05 mg/dL (0.60-1.20); Glomerular Filtration Rate >60 (60-); Glucose, Blood 277 mg/dL (70-99); Phosphorus, Blood 4.4 mg/dL (2.5-4.9); Potassium, Blood 4.6 mmol/L (3.5-5.5); Sodium, Blood 146 mmol/L (136-145)
--- NOTE | 2021-08-23 06:45 | NUR ---
Shift summary. Pt continues sedated and ventilated via ETT. Vent settings remain unchanged, AC/VC 27/450/8/30%. OG tube running tube feed at 35 ml/hr goal rate. Powerglides x2 in YAW/JUDITH, propofol running at 20 mcg/kg/min, down from 30 mcg/kg/min at beginning of shift. Taylor catheter in place, clear/yellow urine draining, 800 out this shift. Pt left arm remains swollen, last forearm measurement 37.5cm, 38cm measured at beginning of shift. See shift assessment for details. Will continue to monitor and report off to dayshift RN.
[2021-08-23 06:48] LABS: BASOPHILS ABSOLUTE AUTO 0.07 K/mm3 (0.00-0.23); BASOPHILS PERCENT AUTO 0 % (0-2); EOSINOPHILS ABSOLUTE AUTO 0.06 K/mm3 (0.00-0.68); EOSINOPHILS PERCENT AUTO 0 % (0-6); Hematocrit 26.6 % (37.0-53.0); Hemoglobin 8.7 g/dL (13.5-17.5); IMMATURE GRAN ABSOLUTE AUTO 1.25 K/mm3 (0.00-0.10); IMMATURE GRAN PERCENT AUTO 4 % (0-1); LYMPHOCYTES ABSOLUTE AUTO 1.73 K/mm3 (0.84-5.20); LYMPHOCYTES PERCENT AUTO 5 % (21-46); MONOCYTES ABSOLUTE AUTO 2.14 K/mm3 (0.16-1.47); MONOCYTES PERCENT AUTO 6 % (4-13); Mean Corpuscular HGB 33.1 pg (26.0-34.0); Mean Corpuscular HGB Conc 32.7 g/dL (31.5-36.5); Mean Corpuscular Volume 101 fL (80-100); Mean Platelet Volume 12.1 fL (9.1-12.4); NEUTROPHILS ABSOLUTE AUTO 30.38 K/mm3 (1.96-9.15); NEUTROPHILS PERCENT AUTO 85 % (41-73); NRBC ABSOLUTE 0.15 K/mm3 (0.00-0.02); NRBC Auto 0.4 /100 WBC (0.0-0.2); Platelet Count 265 K/mm3 (150-400); RDW Coefficient Variation 15.3 % (11.7-14.2); RDW Standard Deviation 56.2 fL (35.1-46.3); Red Blood Cell Count 2.63 M/mm3 (4.30-5.90); White Blood Cell Count 35.63 K/mm3 (4.00-11.30)
--- NOTE | 2021-08-23 08:00 | NUR ---
PT LIGHTLY SEDATED ON PROPOFOL FOR VENTILATOR COMPLIANCE. PT GRIMACING TO PAINFUL STIMULI AND ORAL CARE. NO SPONTANEOUS EYE OPENING OR SPONTANEOUS MOVEMENT NOTED. PUPILS 2 MM AND BOTH SLUGGISH-L>R. NO GAG NOTED WITH ORAL CARE AND YANKEUR SUCTIONING.ECG SHOWS SR WITH RATE 80'S OCCASIONAL ECTOPY. BP STABLE. TEMP 99.1-BLANKETS REMOVED FROM PT AND THE TEMPERATURE IN THE ROOM IS COOL. RADIAL, DP/PT PULSES PER DOPPLER. GENERALIZED EDEMA NOTED. LEFT ARM AND HAND REMAIN SWOLLEN-MEASURED LEFT ARM AT THE DEMARCATED AREA-NOW 35CM DOWN FORM 38.5 CM. BLISTER NOTED TO LEFT UPPER ARM AROUND EXTENDED DWELL CATHETER DRESSING. LUNGS COARSE. ETT SUCTION PRODUCTIVE OF A LARGE AMOUNT OF THICK, BLOODY SECRETIONS. WBC CONTINUE TO CLIMB 35.63 AND H&H 8.7/26.6 DOWN THIS AM. ETT TO VENT: VC+27, 450, PEEP 8, FIO2 30%. PT MAINTAINS SATS>90% ANTICIPATE SPONTANEOUS BREATHING TRIAL LATER THIS AM. OGTF @ GOAL AND PT HAS MINIMAL RESIDUAL. GONZÁLES WITH SMALL AMOUNT OF DERRICK URINE TO BSD. PT LOWER EXTREMITIES ARE DISCOLORED AND BROWNISH IN APPEARANCE- LEFT LEG WITH 2 FOAM DRESSINGS THAT ARE C/D/I AND RIGHT LEG WITH FOAM DRESSING JUST UNDER THE KNEE-ALSO C/D/I. TYLER AREA SLIGHTLY RED. CALAZIME APPLIED AFTER TYLER CARE.
[2021-08-23 08:21] LABS: BASOPHILS PERCENT MAN 0 % (0-2); EOSINOPHILS ABSOLUTE MAN 0.35 K/mm3 (0.00-0.68); EOSINOPHILS PERCENT MAN 1 % (0-6); LYMPHOCYTES ABSOLUTE MAN 1.06 K/mm3 (0.84-5.20); LYMPHOCYTES PERCENT MAN 3 % (21-46); MONOCYTES ABSOLUTE MAN 1.42 K/mm3 (0.16-1.47); MONOCYTES PERCENT MAN 4 % (4-13); MYELOCYTE ABSOLUTE MAN 1.06 K/mm3 (0.00-0.00); MYELOCYTE PERCENT MAN 3 % (0-0); NEUTROPHILS ABSOLUTE MAN 31.71 K/mm3 (1.96-9.15); SEG NEUTROPHILS PERCENT MAN 89 % (41-73); TOTAL CELLS COUNTED 100
--- NOTE | 2021-08-23 09:45 | NUR ---
PROPOFOL DRIP OFF. PT REPOSITIONED TO RIGHT SIDE-PT REMAINS RESPONSIVE TO PAINFUL STIMULI ONLY.
--- NOTE | 2021-08-23 10:30 | NUR ---
PT OPENED EYES TO VOICE, BUT NOT FOLLOWING COMMANDS AT THIS TIME. VENT: P2 20 WITH FIO2 40% SATS 88-91%.
--- NOTE | 2021-08-23 10:45 | NUR ---
SPO2 83%. PT SUCTION-MODERATE AMOUNT OF THICK, BLOODY SPUTUM. FIO2 INCREASED TO 50%.
--- NOTE | 2021-08-23 12:00 | NUR ---
PT OPENING EYES TO VERBAL STIMULI, BUT STILL NOT FOLLOWING COMMANDS OR MOVING EXTREMITIES. PT +GAG NOW AND COUGHING MORE FREQUENTLY. ETT SUCTION CONTINUES TO BE PRODUCTIVE OF A LARGE AMOUNT OF THICK RUST COLORED SPUTUM. DR. HERNANDEZ AWARE-WILL SEND SPUTUM SPECIMEN. LUNGS REMAIN COARSE THROUGH OUT. PT MAINTAINS SATS>90% ON PS 20 AN DFIO2 60%. PLAN TO LEAVE PT ON PS LONG TOLERATED. IF PT DESATS ON FIO2 60%, THEN WILL PLACE BACK ON PREVIOUS VENT SETTINGS. PT INCONTINENT OF A LARGE AMOUNT OF DARK, BROWN, LIQUID STOOL-BED BATH GIVEN AND LINEN CHANGED-PT TOLERATED WELL.
--- NOTE | 2021-08-23 15:00 | NUR ---
PT REMAINS ON PS 20, FIO2 50%-SPO2 >90% PT OPENS EYES TO VOICE, BUT STILL NOT FOLLOWING COMMANDS. PROPOFOL STILL OFF. TEMP 100.1. BC X 2 AND SPUTUM SENT. PT INCONTINENT OF X-LARGE, BROWN LIQUID STOOL. TYLER CARE DONE, PARTIAL LINEN CHANGE COMPLETED-TOLERATED WELL.
--- NOTE | 2021-08-23 16:00 | NUR ---
PT APPEARS TO SLEEP WHEN NOT DISTURBED. OPENS EYES TO VERBAL STIMULI, BUT STILL NOT FOLLOWING COMMANDS. NO SPONTANEOUS MOVEMENT OF EXTREMITIES. EVEN THOUGH PT EYES ARE OPEN, HE IS NOT TRACKING. PUPILS NOW 3 MM, BRISK, AND ERL. TEMP TRENDING 99.1-100.4. ECG CONTINUES SR WITH RATE 80-90'S. BLOOD PRESSURE REMAINS STABLE. GENERALIZED EDEMA CONTINUES. SCLERAL EDEMA CONTINUES L>R. PT HAS BEEN OFF OF SEDATION SINCE O945 THIS AM-CONTINUES ON PS 20, FIO2 TITRATED DOWN TO 40%. OGTF INCREASED TO 40 CC/HR PER DIETARY ORDER. PT HAS HAD TWO LARGE, LOOSE BM'S SO FAR THIS SHIFT. URINE OUTPUT IMPROVED. GONZÁLES WITH MODERATE AMOUNT OF YELLOW URINE TO UROMETER. BC X 2, SPUTUM, AND URINE HAVE BEEN SENT FOR CULTURE. PT LEFT ARM HAS REMAINED ELEVATED ON PILLOWS-NO CHANGE IN THE SIZE MEASUREMENT THIS SHIFT-STILL 35 CM. FOAM DRESSING TO LEFT LOWER EXTREMITY REMAINS C/D/I. RIGHT LOWER EXTREMITY WITH FOAM DRESSING X 3-ALSO, C/D/I.
[2021-08-23 16:16] LABS: Source, Urine Catheter
[2021-08-23 16:20] LABS: Appearance, Urine Clear (Clear); Bilirubin, Urine Neg (Neg); Blood, Urine 3+ (Neg); Color, Urine Yellow (P-Yellow); Glucose Qualitative, Urine Neg (Neg); Ketones, Urine Neg (Neg); Leukocyte Esterase, Urine Neg (Neg); Nitrite, Urine Neg (Neg); Protein, Urine 2+ (Neg); Urobilinogen, Urine NORM (Normal)
[2021-08-23 17:02] LABS: Squamous Epithelial Cells Rare /hpf (Few)
[2021-08-23 17:03] LABS: Bacteria Few /hpf; Mucus Light (0-Heavy)
--- NOTE | 2021-08-23 17:45 | NUR ---
PT PLACED ON PREVIOUS VENT SETTINGS:AC/VC+27, 450, PEEP 8, FIO2 40%-PROPOFOL RESUMED AT 20 MCG/KG/MIN-PER DR. HERNANDEZ ORDER. ANTICIPATE PS TRIAL AGAIN TOMORROW. NO ACUTE DISTRESS NOTED AT THIS TIME.
[2021-08-23 20:24] LABS: Vancomycin, Trough 18.4 ug/mL (5.0-10.0)
--- NOTE | 2021-08-23 20:55 | NUR ---
SHIFT ASSESSMENT ASSUMED CARE OF PT @ 1900. REPORT RECEIVED FROM THANG IBARRA. PT INTUBATED AND SEDATED. VENT SETTINGS AC: 27/450/40%/ PEEP 8 c O2 SATS >95%. PROPOFOL GTT @ 20MCG/KG/MIN. PT NOT OPENING EYES SPONTANEOUSLY. PUPILS EQUAL AND RESPONSIVE TO LIGHT. COUGH BUT NO GAG WITH SUCTION. GENERALIZED EDEMA T/O. BLISTER TO YAW, ARM REMAINS ELEVATED. WOUNDS TO BLE DRESSINGS C/D/I. OG TF c PIVOT 1.5 @ GOAL. TEMP PROBE GONZÁLES PATENT, DRAINING YELLOW URINE TO GRAVITY. TEMP OF 99.1.
[2021-08-24 03:45] LABS: Hematocrit 23.5 % (37.0-53.0); Hemoglobin 7.5 g/dL (13.5-17.5); Mean Corpuscular HGB 32.6 pg (26.0-34.0); Mean Corpuscular HGB Conc 31.9 g/dL (31.5-36.5); Mean Corpuscular Volume 102 fL (80-100); Mean Platelet Volume 11.7 fL (9.1-12.4); NRBC ABSOLUTE 0.22 K/mm3 (0.00-0.02); NRBC Auto 0.7 /100 WBC (0.0-0.2); Platelet Count 244 K/mm3 (150-400); RDW Coefficient Variation 15.6 % (11.7-14.2); RDW Standard Deviation 57.8 fL (35.1-46.3); White Blood Cell Count 30.55 K/mm3 (4.00-11.30)
[2021-08-24 04:11] LABS: Alanine Aminotransfer (ALT/SGP 38 U/L (12-78); Albumin, Blood 1.4 g/dL (3.4-5.0); Albumin/Globulin Ratio 0.4 (0.8-1.8); Alk Phos 77 U/L (50-136); Anion Gap 5 mmol/L (6-16); Aspartate Aminotrans (AST/SGOT 23 U/L (12-37); Bilirubin, Total 0.4 mg/dL (0.1-1.0); Blood Urea Nitrogen 81 mg/dL (8-24); Bun/Creatinine Ratio 76.4 (12.0-20.0); CO2, Blood 23 mmol/L (21-32); Calcium, Blood 8.2 mg/dL (8.5-10.1); Chloride, Blood 119 mmol/L (98-108); Creatinine, Blood 1.06 mg/dL (0.60-1.20); Globulin, Blood 3.5 g/dL (2.2-4.0); Glomerular Filtration Rate >60 (60-); Glucose, Blood 244 mg/dL (70-99); Magnesium, Blood 2.4 mg/dL (1.6-2.4); Potassium, Blood 4.2 mmol/L (3.5-5.5); Sodium, Blood 147 mmol/L (136-145); Total Protein, Blood 4.9 g/dL (6.4-8.2)
[2021-08-24 04:23] LABS: BAND PERCENT MAN 2 % (0-8); BASOPHILS PERCENT MAN 0 % (0-2); EOSINOPHILS PERCENT MAN 1 % (0-6); LYMPHOCYTES ABSOLUTE MAN 1.22 K/mm3 (0.84-5.20); LYMPHOCYTES PERCENT MAN 4 % (21-46); MONOCYTES ABSOLUTE MAN 0.91 K/mm3 (0.16-1.47); MONOCYTES PERCENT MAN 3 % (4-13); SEG NEUTROPHILS PERCENT MAN 90 % (41-73); TOTAL CELLS COUNTED 100
--- NOTE | 2021-08-24 06:09 | NUR ---
SHIFT SUMMARY PT REMAINS INTUBATED AND SEDATED. NO CHANGES TO VENTILATOR SETTINGS. PROPOFOL @ 20MCG/KG/MIN. DURING SEDATION VACATION PT NOT FOLLOWING COMMANDS, WOULD OPEN EYES MINIMALLY, NOT TRACKING. PUPILS EQUAL AND REACTIVE, SCLERAL EDEMA REMAINS BILATERALLY. LS COARSE THIS MORNING, SUCTIONED LARGE AMNT OF THICK ALCAZAR SECRETIONS. TF CONTINUES AT GOAL, SCANT RESIDUALS. TEMP PROBE GONZÁLES C 1150ML URINE OUT. NO BM. NO ACUTE CHANGES THIS SHIFT.
--- NOTE | 2021-08-24 21:17 | NUR ---
ASSUMPTION OF CARE PT REMAINS INTUBATED AND ON SPONTANEOUS SINCE AM. SEDATION HAS BEEN OFF SINCE AM. PT OPENS EYES DURING CARE BUT DOES NOT MAKE EYE CONTACT. PT MAKES GROSS MOVEMENTS WITH EXTREMITIES BUT NO PURPOSEFUL MOVEMENTS OR FOLLOWING COMMANDS. PT HAD 2 LIQUID STOOLS THIS SHIFT. RECTAL TUBE PLACED. GONZÁLES REMAINS IN PLACE DRAINING YELLOW URINE. SMALL AMOUNT OF PINK URINE AND CLOTS. CATHETER IRRIGATED AND URINE IS NOW YELLOW WITHOUT SIGNS OF MORE CLOTS.
[2021-08-25 04:24] LABS: BASOPHILS ABSOLUTE AUTO 0.05 K/mm3 (0.00-0.23); BASOPHILS PERCENT AUTO 0 % (0-2); EOSINOPHILS ABSOLUTE AUTO 0.05 K/mm3 (0.00-0.68); EOSINOPHILS PERCENT AUTO 0 % (0-6); Hemoglobin 7.9 g/dL (13.5-17.5); IMMATURE GRAN ABSOLUTE AUTO 0.69 K/mm3 (0.00-0.10); IMMATURE GRAN PERCENT AUTO 2 % (0-1); LYMPHOCYTES ABSOLUTE AUTO 1.81 K/mm3 (0.84-5.20); LYMPHOCYTES PERCENT AUTO 5 % (21-46); MONOCYTES ABSOLUTE AUTO 1.91 K/mm3 (0.16-1.47); MONOCYTES PERCENT AUTO 6 % (4-13); Mean Corpuscular HGB 32.5 pg (26.0-34.0); Mean Corpuscular HGB Conc 31.6 g/dL (31.5-36.5); Mean Corpuscular Volume 103 fL (80-100); Mean Platelet Volume 11.6 fL (9.1-12.4); NEUTROPHILS ABSOLUTE AUTO 29.23 K/mm3 (1.96-9.15); NEUTROPHILS PERCENT AUTO 87 % (41-73); NRBC ABSOLUTE 0.35 K/mm3 (0.00-0.02); Platelet Count 266 K/mm3 (150-400); RDW Coefficient Variation 16.3 % (11.7-14.2); RDW Standard Deviation 59.2 fL (35.1-46.3); Red Blood Cell Count 2.43 M/mm3 (4.30-5.90); White Blood Cell Count 33.74 K/mm3 (4.00-11.30)
[2021-08-25 04:27] LABS: Anion Gap 7 mmol/L (6-16); Blood Urea Nitrogen 79 mg/dL (8-24); Bun/Creatinine Ratio 71.2 (12.0-20.0); CO2, Blood 24 mmol/L (21-32); Calcium, Blood 8.5 mg/dL (8.5-10.1); Chloride, Blood 120 mmol/L (98-108); Creatinine, Blood 1.11 mg/dL (0.60-1.20); Glomerular Filtration Rate >60 (60-); Glucose, Blood 92 mg/dL (70-99); Magnesium, Blood 2.4 mg/dL (1.6-2.4); Potassium, Blood 3.7 mmol/L (3.5-5.5); Sodium, Blood 151 mmol/L (136-145)
--- NOTE | 2021-08-25 06:23 | NUR ---
SHIFT SUMMARY PT REMAINS INTUBATED AND ON SPONTANEOUS SINCE YESTERDAY AM. PT OPENS EYES SPONTANEOUSLY BUT DOES NOT MAKE EYE CONTACT OR TRACK MOVEMENTS. MAKES GROSS MOVEMENTS WITH EXTREMITIES UT NO PURPOSEFUL MOVEMENTS. PT HAS BEEN OCCASIONALLY CHEWING ON ETT, BITE BLOCK READJUSTED BY RT. ETT SECRETIONS HAVE BEEN THICK/ALCAZAR. TUBE FEEDING CONTINUES TO INFUSE VIA OGT AT GOAL RATE WITH MINIMAL RESIDUALS. GONZÁLES REMAINS IN PLACE DRAINING CLOUDY YELLOW URINE WITH SEDIMENT. SHIFT OUTPUT OF OVER 2L THIS SHIFT. RECTAL TUBE REMAINS IN PLACE. GLUCOSE THIS AM WAS 75 AND PT BECOMING HYPOTENSIVE. PROVIDER NOTIFIED AND ORDER RECEIVED. WILL REPORT TO ONCOMING RN.
--- NOTE | 2021-08-25 16:33 | NUR ---
Pt recieved on bed intubated to vent; responsive to tactile stimuli. Pt open eyes but does not follow commands. Pt assessment done; pt has multiple wounds on upper and lower extremities. Taylor Cath noted draining adequate output; Flexi-seal to gravity also present. Bariatric Bed in use. 0900 Dr. Woods seen and assessed pt; Orders recieved. D5 started and CT completed; pt tolerated well. 1600 Pericare done and pt repositioned. Family @ bedside; updated on status of patient by Dr. Woods. Pt VSS, and in no acute distress. Will monitor pt closely until remainder of shift.
--- NOTE | 2021-08-25 20:40 | NUR ---
SHIFT ASSESSMENT ASSUMED CARE OF PT @ 1900. PT INTUBATED, REMAINS ON SPONTANEOUS. MODERATE AMOUNT OF THICK SECRETIONS VIA ETT. OFF SEDATION. PT WILL OPEN EYES, NOT TRACKING. UNABLE TO FOLLOW COMMANDS. WILL BITE DOWN DURING ORAL CARE, HAS COUGH AND GAG. TF @ GOAL, NO RESIDUALS. RECTAL TUBE IN PLACE, LOOSE BROWN STOOL. TEMP GONZÁLES CATH PATENT, DRAINING YELLOW URINE. SEE CHART FOR FULL ASSESSMENT.
[2021-08-25 21:44] LABS: Vancomycin, Trough 23.5 ug/mL (5.0-10.0)
[2021-08-26 04:32] LABS: BASOPHILS ABSOLUTE AUTO 0.03 K/mm3 (0.00-0.23); BASOPHILS PERCENT AUTO 0 % (0-2); EOSINOPHILS ABSOLUTE AUTO 0.09 K/mm3 (0.00-0.68); EOSINOPHILS PERCENT AUTO 0 % (0-6); Hematocrit 22.7 % (37.0-53.0); Hemoglobin 7.1 g/dL (13.5-17.5); IMMATURE GRAN ABSOLUTE AUTO 0.24 K/mm3 (0.00-0.10); IMMATURE GRAN PERCENT AUTO 1 % (0-1); LYMPHOCYTES ABSOLUTE AUTO 1.44 K/mm3 (0.84-5.20); LYMPHOCYTES PERCENT AUTO 6 % (21-46); MONOCYTES ABSOLUTE AUTO 1.43 K/mm3 (0.16-1.47); MONOCYTES PERCENT AUTO 6 % (4-13); Mean Corpuscular HGB 33.2 pg (26.0-34.0); Mean Corpuscular HGB Conc 31.3 g/dL (31.5-36.5); Mean Corpuscular Volume 106 fL (80-100); Mean Platelet Volume 11.2 fL (9.1-12.4); NEUTROPHILS ABSOLUTE AUTO 20.61 K/mm3 (1.96-9.15); NEUTROPHILS PERCENT AUTO 87 % (41-73); NRBC ABSOLUTE 0.29 K/mm3 (0.00-0.02); NRBC Auto 1.2 /100 WBC (0.0-0.2); Platelet Count 232 K/mm3 (150-400); RDW Coefficient Variation 16.7 % (11.7-14.2); Red Blood Cell Count 2.14 M/mm3 (4.30-5.90); White Blood Cell Count 23.84 K/mm3 (4.00-11.30)
[2021-08-26 04:45] LABS: Anion Gap 5 mmol/L (6-16); Blood Urea Nitrogen 79 mg/dL (8-24); Bun/Creatinine Ratio 74.5 (12.0-20.0); CO2, Blood 27 mmol/L (21-32); Calcium, Blood 8.3 mg/dL (8.5-10.1); Chloride, Blood 119 mmol/L (98-108); Creatinine, Blood 1.06 mg/dL (0.60-1.20); Glomerular Filtration Rate >60 (60-); Glucose, Blood 126 mg/dL (70-99); Magnesium, Blood 2.1 mg/dL (1.6-2.4); Phosphorus, Blood 3.7 mg/dL (2.5-4.9); Potassium, Blood 3.5 mmol/L (3.5-5.5); Sodium, Blood 151 mmol/L (136-145)
--- NOTE | 2021-08-26 05:46 | NUR ---
SHIFT SUMMARY PT REMAINS INTUBATED, OFF SEDATION. PT UNABLE TO FOLLOW COMMANDS. WILL OPEN EYES TO VERBAL STIMULI, UNABLE TO TRACK NURSE IN ROOM. CONTINUES ON SPONT-09/26 @ 40% c O2 SATS >95%. LS COARSE, LARGE AMNTS OF ALCAZAR SECRETIONS SUCTTIONED VIA ETT. TF CONTINUES @ GOAL c SCANT RESIDUALS. TEMP PROBE GONZÁLES DRAINING YELLOW URINE, T-MAX 99.9. NO OTHER ACUTE CHANGES, REPORT TO ONCOMING NURSE.
--- NOTE | 2021-08-26 10:53 | NUR ---
CONSULT FOR DR FUCHS IN THE AM FOR POSSIBLE TRACH ENTERED, REPORTED BS TO DR HERNANDEZ, SHASHANK CHANGED TO 25 UNITS, NOT FOLLOWING DIRECTION, INDEPEDANTLY MOVES BILA LEGS, ROBERTO UPDATE
--- NOTE | 2021-08-26 14:57 | NUR ---
AT BEDSIDE, HELPFUL TO CARE
--- NOTE | 2021-08-26 16:52 | NUR ---
at bedside, patient moving legs, arms, and neck, not following directions, eyes open but does not track, grimaces from painful stimulus, restraints back on for safety from pulling at et tube and pg, wctm
--- NOTE | 2021-08-26 21:47 | NUR ---
SHIFT ASSESSMENT ASSUMED CARE OF PT @ 1900. PT REMAINS INTUBATED, ON SPONTANEOUS-09/26 @ 40% c O2 SATS >95%. PT HAS STRONG COUGH, LARGE AMNT OF THICK ALCAZAR SECRETIONS SUCTIONED VIA ETT. OFF SEDATION. PT NOT FOLLOWING ANY COMMANDS, NOT MOVING EXTREMITIES. WILL OPEN EYES SPONTANEOUSLY BUT NOT TRACKING NURSE IN ROOM. RESTRAINTS DC'D DUE TO PT HAVING NO MOVEMENT OF EXTREMITIES. TF CONTINUES @ GOAL c 200ML FLUSHES. RECTAL TUBE IN PLACE c ALCAZAR, LOOSE STOOL. TEMP PROBE GONZÁLES PATENT, YELLOW URINE c SEDIMENT DRAINING TO GRAVITY. WILL CONTINUE TO MONITOR CLOSELY.
[2021-08-27 03:45] LABS: BASOPHILS ABSOLUTE AUTO 0.02 K/mm3 (0.00-0.23); BASOPHILS PERCENT AUTO 0 % (0-2); EOSINOPHILS ABSOLUTE AUTO 0.11 K/mm3 (0.00-0.68); EOSINOPHILS PERCENT AUTO 1 % (0-6); Hematocrit 23.9 % (37.0-53.0); Hemoglobin 7.5 g/dL (13.5-17.5); IMMATURE GRAN ABSOLUTE AUTO 0.29 K/mm3 (0.00-0.10); IMMATURE GRAN PERCENT AUTO 2 % (0-1); LYMPHOCYTES ABSOLUTE AUTO 1.53 K/mm3 (0.84-5.20); LYMPHOCYTES PERCENT AUTO 8 % (21-46); MONOCYTES ABSOLUTE AUTO 1.25 K/mm3 (0.16-1.47); MONOCYTES PERCENT AUTO 7 % (4-13); Mean Corpuscular HGB 33.2 pg (26.0-34.0); Mean Corpuscular HGB Conc 31.4 g/dL (31.5-36.5); Mean Corpuscular Volume 106 fL (80-100); Mean Platelet Volume 11.1 fL (9.1-12.4); NEUTROPHILS ABSOLUTE AUTO 15.83 K/mm3 (1.96-9.15); NEUTROPHILS PERCENT AUTO 83 % (41-73); NRBC Auto 2.1 /100 WBC (0.0-0.2); Platelet Count 231 K/mm3 (150-400); RDW Coefficient Variation 16.8 % (11.7-14.2); RDW Standard Deviation 62.4 fL (35.1-46.3); Red Blood Cell Count 2.26 M/mm3 (4.30-5.90); White Blood Cell Count 19.03 K/mm3 (4.00-11.30)
[2021-08-27 04:01] LABS: International Normalized Ratio 1.09; Prothrombin Time Results 11.4 Sec (9.7-11.5)
[2021-08-27 04:04] LABS: Anion Gap 4 mmol/L (6-16); Blood Urea Nitrogen 74 mg/dL (8-24); Bun/Creatinine Ratio 71.8 (12.0-20.0); CO2, Blood 29 mmol/L (21-32); Calcium, Blood 8.3 mg/dL (8.5-10.1); Chloride, Blood 116 mmol/L (98-108); Creatinine, Blood 1.03 mg/dL (0.60-1.20); Glomerular Filtration Rate >60 (60-); Glucose, Blood 107 mg/dL (70-99); Magnesium, Blood 2.2 mg/dL (1.6-2.4); Phosphorus, Blood 3.4 mg/dL (2.5-4.9); Potassium, Blood 3.5 mmol/L (3.5-5.5); Sodium, Blood 149 mmol/L (136-145)
--- NOTE | 2021-08-27 05:35 | NUR ---
SHIFT SUMMARY PT REMAINS INTUBATED, OFF SEDATION. CONTINUES c SPONTANEOUS 09/26 @ 40% c O2 SATS >95%. LARGE AMNT OF THICK SECRETIONS SUCTIONED VIA ETT T/O NIGHT. PT NOT FOLLOWING ANY COMMANDS. OPENING EYES BUT NOT TRACKING. AROUND 0430 PT APPEARED TO BE SLIGHTLY MOVING LEGS SIDE TO SIDE, BUT DIFFICULT TO DIFFERENTIATE BETWEEN PURPOSEFUL MOVEMENT AND RESIDUAL MOVEMENT FROM COUGHING. NO APPARENT MOVEMENT OF UPPER EXTREMITIES. REMAINS OUT OF RESTRAINTS. TUBE FEED HAS BEEN OFF SINCE 0000 FOR POTENTIAL PROCEDURE THIS AM. NO OTHER ACUTE CHANGES DURING THE NIGHT. WILL CONTINUE TO MONITOR CLOSELY.
--- NOTE | 2021-08-27 17:07 | NUR ---
Pt recieved on bed intubated reactive to tactile stimuli but unable to follow commands. Pt assessment done; pt has solorzano cath draining adequate output, rectal tube draining by gravity, OG tube clamped and midline infusing D5. Dr. Fuller seen and asssessed pt. Orders recieved. [address] Fuller @ bedside completed tracheostomy procedure; pt tolerated well. Dubhoff placed, pending X-ray. Family updated on status of pt. 1630 Pericare done, and pt repositioned. Pt afebrile, VSS and in no acute distress. Will monitor pt until remainder of shift.
--- NOTE | 2021-08-27 22:00 | NUR ---
ASSUMED CARE AT 1900 PT LAYING IN BED ON VENT VIA TRACH WITH VENT SETTINGS SPONT 12/8, TV 500-600, FIO2 45%; LARGE AMOUNTS OF THICK ALCAZAR/RED SECREATIONS FROM TRACH. PT IS REACTIVE TO NOXIOUS STIMULI AND OCCATIONALLY OPENS EYES SPONTANIOUSLY BUT DOES NOT TRACK OR FOLLOW DIRECTIONS; WITHDRAWS FROM PAINFUL STIMULI; NO PURPOSEFUL MOVEMENT; NO SEDATION MEDICAION INFUSING. AFEBRILE. HR 70-80'S. SBP 140'S. DOBHOFF IN PLACE AND CLAMPED; PLAN TO RESTART TUBE FEEDING. GONZÁLES AND RECTAL TUBE PATENT AND DRAINING TO GRAVITY. D5 INFUSING AT 50ML/HR. SEE SHIFT ASSESSMENT FOR FULL ASSESSMENT.
--- NOTE | 2021-08-28 06:07 | NUR ---
END OF SHIFT SUMMARY NO ACUTE EVENTS OVERNIGHT. PT CONT TO BE ON VENT VIA TRACH WITH VENT SETTINGS SPONT /, TV 500-600, FIO2 TITRATED DOWN TO 30%; LARGE-COPIOUS AMOUNT OF THICK BROWN/ALCAZAR/RED SECREATIONS FROM TRACH. PT REACTIVE TO PAINFUL STIMULI AND SPONTANIOUSLY OPENS EYES BUT NOT TRACKING MOVEMENT OR FOLLOWING DIRECTIONS; MINIMAL MOVEMENT NOTED TO BLE, AND SHAKING HEAD LRCV-HFI-RJGHS. FENTANYL GIVEN TWICE FOR RESTLESSNESS AND HELPFUL. MAX TEMP 100.2; FAN CURRENTLY IN USE. HR 70-80'S. SBP 130-150'S. NEPRO INFUSING VIA DOBHOFF AT 45ML/HR (GOAL) WITH 200ML WATER FLUSHES Q4HR. GONZÁLES AND RECTAL TUBE IN PLACE AND DRAINING TO GRAVITY. GONZÁLES HAD 2350ML OF URINE OUTPUT THIS SHIFT. D5 INFUSING AT 50ML/HR. WILL REPORT TO AM RN WHEN AVAILABLE.
[2021-08-28 08:35] LABS: BASOPHILS ABSOLUTE AUTO 0.03 K/mm3 (0.00-0.23); BASOPHILS PERCENT AUTO 0 % (0-2); EOSINOPHILS ABSOLUTE AUTO 0.14 K/mm3 (0.00-0.68); EOSINOPHILS PERCENT AUTO 1 % (0-6); Hematocrit 23.5 % (37.0-53.0); Hemoglobin 7.2 g/dL (13.5-17.5); IMMATURE GRAN ABSOLUTE AUTO 0.21 K/mm3 (0.00-0.10); IMMATURE GRAN PERCENT AUTO 1 % (0-1); LYMPHOCYTES ABSOLUTE AUTO 1.31 K/mm3 (0.84-5.20); LYMPHOCYTES PERCENT AUTO 6 % (21-46); MONOCYTES ABSOLUTE AUTO 1.16 K/mm3 (0.16-1.47); MONOCYTES PERCENT AUTO 5 % (4-13); Mean Corpuscular HGB 32.7 pg (26.0-34.0); Mean Corpuscular HGB Conc 30.6 g/dL (31.5-36.5); Mean Corpuscular Volume 107 fL (80-100); Mean Platelet Volume 10.9 fL (9.1-12.4); NEUTROPHILS ABSOLUTE AUTO 19.03 K/mm3 (1.96-9.15); NEUTROPHILS PERCENT AUTO 87 % (41-73); NRBC ABSOLUTE 0.29 K/mm3 (0.00-0.02); NRBC Auto 1.3 /100 WBC (0.0-0.2); Platelet Count 233 K/mm3 (150-400); RDW Coefficient Variation 17.3 % (11.7-14.2); RDW Standard Deviation 62.6 fL (35.1-46.3); White Blood Cell Count 21.88 K/mm3 (4.00-11.30)
[2021-08-28 08:53] LABS: Anion Gap 5 mmol/L (6-16); Blood Urea Nitrogen 70 mg/dL (8-24); Bun/Creatinine Ratio 75.4 (12.0-20.0); CO2, Blood 29 mmol/L (21-32); Calcium, Blood 8.5 mg/dL (8.5-10.1); Chloride, Blood 114 mmol/L (98-108); Creatinine, Blood 0.93 mg/dL (0.60-1.20); Glomerular Filtration Rate >60 (60-); Glucose, Blood 107 mg/dL (70-99); Potassium, Blood 3.5 mmol/L (3.5-5.5); Sodium, Blood 148 mmol/L (136-145)
--- NOTE | 2021-08-28 18:39 | NUR ---
Pt recieved on bed trach to vent with strong cough and gag eactive to tactile stimuli but unable to follow commands. Pt moves head and lower extremities but unporpuseful. Pt has solorzano and rectal ube draning output. 09 Dr. Fuller @ [facility] seen and assessed pt, Orders recieved. pt febrile, Dr. Fuller notified, meds given and pt repositioned. 1100 Pt placed on Trach collar by Rt, pt toleratd well. 1500 Pt family @ bedside updated on status of pt. 1600 Ice bed bath given, and pt repositioned. Pt VSS, and in no acute distress. Will continue to monitor pt closely.
--- NOTE | 2021-08-28 19:15 | NUR ---
ASSUMPTION OF CARE RECEIVED REPORT FROM MARICRUZ IBARRA. ASSUMED CARE OF PATIENT. PATIENT WITH EYES OPEN IN BED, TRACH WITH TRACH COLLAR IN PLACE. VITALS STABLE. GONZÁLES TO GRAVITY, RECTAL TUBE TO GRAVITY WITH BROWN DRAINAGE. WILL REVIEW ORDERS AND TREAT PRESCRIBED.
--- NOTE | 2021-08-29 05:50 | NUR ---
SHIFT SUMMARY NO ACUTE CHANGES THROUGH SHIFT. PATIENT WITH TRACH COLLAR IN PLACE, TOLERATED WELL WITH 02 SATS ABOVE 95%. CONTINUING TO SUCTION THICK SECRETIONS VIA TRACH. PATIENT NEURO STATUS UNCHANGED, FOLLOWS SOME COMMANDS, WEAK UPPER EXTREMIES BUT MOVING BLE. GONZÁLES AND RECTAL TUBE REMAIN TO GRAVITY. VITALS STABLE, WILL CONTINUE TO MONITOR AND REPORT TO ONCOMING RN.
[2021-08-29 08:02] LABS: BASOPHILS ABSOLUTE AUTO 0.03 K/mm3 (0.00-0.23); BASOPHILS PERCENT AUTO 0 % (0-2); EOSINOPHILS ABSOLUTE AUTO 0.27 K/mm3 (0.00-0.68); EOSINOPHILS PERCENT AUTO 1 % (0-6); Hematocrit 24.2 % (37.0-53.0); Hemoglobin 7.3 g/dL (13.5-17.5); IMMATURE GRAN ABSOLUTE AUTO 0.22 K/mm3 (0.00-0.10); IMMATURE GRAN PERCENT AUTO 1 % (0-1); LYMPHOCYTES ABSOLUTE AUTO 1.43 K/mm3 (0.84-5.20); LYMPHOCYTES PERCENT AUTO 7 % (21-46); MONOCYTES ABSOLUTE AUTO 1.03 K/mm3 (0.16-1.47); MONOCYTES PERCENT AUTO 5 % (4-13); Mean Corpuscular HGB 32.7 pg (26.0-34.0); Mean Corpuscular HGB Conc 30.2 g/dL (31.5-36.5); Mean Corpuscular Volume 109 fL (80-100); Mean Platelet Volume 10.8 fL (9.1-12.4); NEUTROPHILS ABSOLUTE AUTO 17.82 K/mm3 (1.96-9.15); NEUTROPHILS PERCENT AUTO 86 % (41-73); NRBC ABSOLUTE 0.13 K/mm3 (0.00-0.02); NRBC Auto 0.6 /100 WBC (0.0-0.2); Platelet Count 232 K/mm3 (150-400); RDW Coefficient Variation 17.4 % (11.7-14.2); RDW Standard Deviation 65.8 fL (35.1-46.3); Red Blood Cell Count 2.23 M/mm3 (4.30-5.90)
[2021-08-29 08:46] LABS: Vancomycin, Trough 15.9 ug/mL (5.0-10.0)
[2021-08-29 08:52] LABS: Alanine Aminotransfer (ALT/SGP 40 U/L (12-78); Albumin, Blood 1.5 g/dL (3.4-5.0); Albumin/Globulin Ratio 0.4 (0.8-1.8); Alk Phos 114 U/L (50-136); Anion Gap 6 mmol/L (6-16); Aspartate Aminotrans (AST/SGOT 28 U/L (12-37); Bilirubin, Total 0.8 mg/dL (0.1-1.0); Blood Urea Nitrogen 65 mg/dL (8-24); Bun/Creatinine Ratio 59.1 (12.0-20.0); CO2, Blood 30 mmol/L (21-32); Calcium, Blood 8.5 mg/dL (8.5-10.1); Chloride, Blood 113 mmol/L (98-108); Globulin, Blood 3.5 g/dL (2.2-4.0); Glomerular Filtration Rate >60 (60-); Glucose, Blood 165 mg/dL (70-99); Potassium, Blood 3.2 mmol/L (3.5-5.5); Sodium, Blood 149 mmol/L (136-145)
[2021-08-29 08:54] LABS: C-REACTIVE PROTEIN, EXT RANGE >19.000 mg/dL (0.000-0.300)
[2021-08-29 09:47] LABS: Base Excess Venous 7.8 mmol/L; Bicarbonate Venous 30.9 mmol/L (24.0-30.0); PCO2 Venous 46.7 mmHg (38-42); PO2 Venous 126 mmHg (38-42); pH Blood Venous 7.44 (7.34-7.37)
--- NOTE | 2021-08-29 17:25 | NUR ---
0800 Pt recieved on bed on trach collar tolerating well. Pt open eyes, shake head and lower extremities intermittently but not purposeful. Pt doesn't track with eyes and does not follow commands. Taylor and rectal tube noted draining output. Pt assessment done; pt has strong cough and gag; frequent suctioning neccessary. 0900 Dr. Fuller seen and assessed pt; orders recieved. 1600 Family @ bedside updated on status of pt and plan of care. Pt repositioned and pericare done. Pt VSS and in no acute distress. Will monitor pt until remainder of shift.
--- NOTE | 2021-08-30 03:51 | NUR ---
ASSUMED CARE NOTE: Pt remains responsive to voice but no purposeful movement on all extremities. Was able to nod yes and no but unable to move any extremities when asked. Pt continues to have a strong cough with moderate yellow thick secretions. Maintains solorzano and rectal tube. Trach intact, on 35% FiO2
--- NOTE | 2021-08-30 05:58 | NUR ---
RECEIVED A CALL FROM JAMAL IN INFECTION CONTROL THIS AM, OK TO TAKE PT OUT OF [employer] PRECAUTIONS;HAS BEEN IN COVID ISOLATION OF OVER 20 DAYS, BUT WILL STILL BE IN DROPLET CONTACT DUE TO MRSA IN SPUTUM.
[2021-08-30 06:08] LABS: BASOPHILS ABSOLUTE AUTO 0.03 K/mm3 (0.00-0.23); BASOPHILS PERCENT AUTO 0 % (0-2); EOSINOPHILS ABSOLUTE AUTO 0.36 K/mm3 (0.00-0.68); EOSINOPHILS PERCENT AUTO 2 % (0-6); Hematocrit 24.4 % (37.0-53.0); Hemoglobin 7.6 g/dL (13.5-17.5); IMMATURE GRAN ABSOLUTE AUTO 0.26 K/mm3 (0.00-0.10); IMMATURE GRAN PERCENT AUTO 1 % (0-1); LYMPHOCYTES ABSOLUTE AUTO 1.34 K/mm3 (0.84-5.20); LYMPHOCYTES PERCENT AUTO 7 % (21-46); MONOCYTES PERCENT AUTO 5 % (4-13); Mean Corpuscular HGB 33.6 pg (26.0-34.0); Mean Corpuscular HGB Conc 31.1 g/dL (31.5-36.5); Mean Corpuscular Volume 108 fL (80-100); Mean Platelet Volume 10.6 fL (9.1-12.4); NEUTROPHILS ABSOLUTE AUTO 16.53 K/mm3 (1.96-9.15); NEUTROPHILS PERCENT AUTO 85 % (41-73); Platelet Count 243 K/mm3 (150-400); RDW Coefficient Variation 17.2 % (11.7-14.2); RDW Standard Deviation 65.4 fL (35.1-46.3); Red Blood Cell Count 2.26 M/mm3 (4.30-5.90); White Blood Cell Count 19.52 K/mm3 (4.00-11.30)
[2021-08-30 06:48] LABS: Anion Gap 4 mmol/L (6-16); Blood Urea Nitrogen 59 mg/dL (8-24); Bun/Creatinine Ratio 61.8 (12.0-20.0); CO2, Blood 32 mmol/L (21-32); Calcium, Blood 8.5 mg/dL (8.5-10.1); Chloride, Blood 109 mmol/L (98-108); Creatinine, Blood 0.95 mg/dL (0.60-1.20); Glomerular Filtration Rate >60 (60-); Glucose, Blood 121 mg/dL (70-99); Phosphorus, Blood 2.6 mg/dL (2.5-4.9); Potassium, Blood 2.8 mmol/L (3.5-5.5); Sodium, Blood 145 mmol/L (136-145)
[2021-08-30 08:35] LABS: Anion Gap 3 mmol/L (6-16); Blood Urea Nitrogen 55 mg/dL (8-24); Bun/Creatinine Ratio 55.4 (12.0-20.0); CO2, Blood 34 mmol/L (21-32); Calcium, Blood 8.7 mg/dL (8.5-10.1); Chloride, Blood 109 mmol/L (98-108); Creatinine, Blood 0.99 mg/dL (0.60-1.20); Glomerular Filtration Rate >60 (60-); Glucose, Blood 116 mg/dL (70-99); Potassium, Blood 2.8 mmol/L (3.5-5.5); Sodium, Blood 146 mmol/L (136-145)
--- NOTE | 2021-08-30 17:25 | NUR ---
Pt recieved on bed responsive to verbal and tactile stimuli but extremely weak. Pt is trach with trach collar @ %35 saturatig well. Taylor catheter and rectal tube noted draining output. Dubhoff present infusing neprho @ 45ml/hr. Dr. Gabriel seen and assessed pt; orders recieved. Pt VSS and in no acute distress. Family update on status of pt. Trach care completed will monitor pt until remainder of shift.
--- NOTE | 2021-08-30 19:34 | NUR ---
Assumed Care Note: pt resting comfortably in bed, tolerating trach colar with saturations in the 95 - 98's. Unable to move any extremities on command but responsive to verbal stimuli. Intermittently able to nod appropriately to questions. Lines and drains remained in place and intact.
[2021-08-31 04:25] LABS: BASOPHILS ABSOLUTE AUTO 0.03 K/mm3 (0.00-0.23); BASOPHILS PERCENT AUTO 0 % (0-2); EOSINOPHILS ABSOLUTE AUTO 0.47 K/mm3 (0.00-0.68); EOSINOPHILS PERCENT AUTO 3 % (0-6); Hemoglobin 7.9 g/dL (13.5-17.5); IMMATURE GRAN ABSOLUTE AUTO 0.36 K/mm3 (0.00-0.10); IMMATURE GRAN PERCENT AUTO 2 % (0-1); LYMPHOCYTES ABSOLUTE AUTO 1.57 K/mm3 (0.84-5.20); LYMPHOCYTES PERCENT AUTO 9 % (21-46); MONOCYTES ABSOLUTE AUTO 0.83 K/mm3 (0.16-1.47); MONOCYTES PERCENT AUTO 5 % (4-13); Mean Corpuscular HGB 32.8 pg (26.0-34.0); Mean Corpuscular HGB Conc 30.4 g/dL (31.5-36.5); Mean Corpuscular Volume 108 fL (80-100); Mean Platelet Volume 10.2 fL (9.1-12.4); NEUTROPHILS ABSOLUTE AUTO 14.42 K/mm3 (1.96-9.15); NEUTROPHILS PERCENT AUTO 82 % (41-73); NRBC ABSOLUTE 0.26 K/mm3 (0.00-0.02); NRBC Auto 1.5 /100 WBC (0.0-0.2); Platelet Count 272 K/mm3 (150-400); RDW Coefficient Variation 16.8 % (11.7-14.2); RDW Standard Deviation 65.6 fL (35.1-46.3); Red Blood Cell Count 2.41 M/mm3 (4.30-5.90); White Blood Cell Count 17.68 K/mm3 (4.00-11.30)
[2021-08-31 04:45] LABS: Anion Gap 4 mmol/L (6-16); Blood Urea Nitrogen 54 mg/dL (8-24); Bun/Creatinine Ratio 67.8 (12.0-20.0); CO2, Blood 33 mmol/L (21-32); Calcium, Blood 9.1 mg/dL (8.5-10.1); Chloride, Blood 108 mmol/L (98-108); Glomerular Filtration Rate >60 (60-); Glucose, Blood 144 mg/dL (70-99); Potassium, Blood 3.3 mmol/L (3.5-5.5); Sodium, Blood 145 mmol/L (136-145)
--- NOTE | 2021-08-31 05:33 | NUR ---
END OF SHIFT SUMMARY: No change in neuro status, still withdrawn and unable to move extremities. Pt had large to moderate amount of secretions, still coughs vigorously and popped off vent tubing off trach multiple times. Rectal tube was replaced today due to leaking at the site despite interventions, perianal area also starting to become more excoraitedl; pt turned Q2 to maintain skin integrity. Taylor remains in place with good UO.
[2021-08-31 10:33] LABS: Bicarbonate Venous 32.8 mmol/L (24.0-30.0); PCO2 Venous 50.7 mmHg (38-42); PO2 Venous 82.2 mmHg (38-42); pH Blood Venous 7.44 (7.34-7.37)
--- NOTE | 2021-08-31 18:43 | NUR ---
PATIENT IS ABLE TO NOD APPROPRIATELY INTERMITTENTLY, CAN FOLLOW COMMANDS WITH HIS HEAD BUT NO MOVEMENT IN EXTREMETIES. GOT A CERVIAL SPINE CT TODAY. TITRATED DOWN TO 26% FIO2 ON TRACH COLLAR. UPDATED VIA PHONE TO , AND MOTHER AT BEDSIDE.
[2021-09-01 03:22] LABS: BASOPHILS ABSOLUTE AUTO 0.03 K/mm3 (0.00-0.23); BASOPHILS PERCENT AUTO 0 % (0-2); EOSINOPHILS ABSOLUTE AUTO 0.63 K/mm3 (0.00-0.68); EOSINOPHILS PERCENT AUTO 4 % (0-6); Hematocrit 26.3 % (37.0-53.0); IMMATURE GRAN ABSOLUTE AUTO 0.35 K/mm3 (0.00-0.10); IMMATURE GRAN PERCENT AUTO 2 % (0-1); LYMPHOCYTES ABSOLUTE AUTO 1.44 K/mm3 (0.84-5.20); LYMPHOCYTES PERCENT AUTO 10 % (21-46); MONOCYTES ABSOLUTE AUTO 0.67 K/mm3 (0.16-1.47); MONOCYTES PERCENT AUTO 5 % (4-13); Mean Corpuscular HGB 32.8 pg (26.0-34.0); Mean Corpuscular HGB Conc 30.4 g/dL (31.5-36.5); Mean Corpuscular Volume 108 fL (80-100); Mean Platelet Volume 10.3 fL (9.1-12.4); NEUTROPHILS ABSOLUTE AUTO 11.52 K/mm3 (1.96-9.15); NEUTROPHILS PERCENT AUTO 79 % (41-73); NRBC ABSOLUTE 0.26 K/mm3 (0.00-0.02); NRBC Auto 1.8 /100 WBC (0.0-0.2); Platelet Count 273 K/mm3 (150-400); RDW Coefficient Variation 16.9 % (11.7-14.2); RDW Standard Deviation 65.4 fL (35.1-46.3); Red Blood Cell Count 2.44 M/mm3 (4.30-5.90); White Blood Cell Count 14.64 K/mm3 (4.00-11.30)
--- NOTE | 2021-09-01 03:31 | NUR ---
SHIFT SUMMARY: PT REMAINS TOTAL ASSIST FOR ALL ASPECTS OF CARE. DOES NOT MAKE EYE CONTACT, FOLLOW SIMPLE COMMANDS OR VOLUNTARILY MOVE TRUNK/EXTREMITIES. DOES OCCASIONALY MOVE HEAD ABOUT IN NON-PURPOSEFUL MANNER. TURNED AND REPOSITIONED Q2, GONZÁLES DRAINING MED YELLOW URINE TO BSD, RECTAL TUBE TO BSD DRAINING LIQUID STOOL. MONITOR SHOWS SR WITH OCCASIONAL PVC, RESP RATE MILDLY ELEVATED IN THE MID TO HIGH 20'S, LUNG SOUNDS COARSE THROUGHOUT, SUCTIONED FOR SMALL AMOUNT BLOOD TINGED ALCAZAR SPUTUM, HOB UP >30*, TOLERATING TUBE FEED WELL AT GOAL RATE OF 60ML/HR, UNABLE TO ASCERTAIN RESIDUAL DUE TO LIMITATIONS OF DOBHOFF. BED LOCKED AND LOW, CALL LIGHT IN REACH. WILL CONTINUE TO MONITOR. STACEY DAILY
[2021-09-01 04:03] LABS: Alanine Aminotransfer (ALT/SGP 30 U/L (12-78); Albumin, Blood 1.6 g/dL (3.4-5.0); Albumin/Globulin Ratio 0.4 (0.8-1.8); Alk Phos 90 U/L (50-136); Anion Gap 1 mmol/L (6-16); Aspartate Aminotrans (AST/SGOT 20 U/L (12-37); Bilirubin, Total 0.7 mg/dL (0.1-1.0); Blood Urea Nitrogen 44 mg/dL (8-24); Bun/Creatinine Ratio 54.9 (12.0-20.0); CO2, Blood 34 mmol/L (21-32); Calcium, Blood 8.6 mg/dL (8.5-10.1); Chloride, Blood 110 mmol/L (98-108); Ferritin, Serum 115 ng/mL (26-388); Globulin, Blood 4.3 g/dL (2.2-4.0); Glomerular Filtration Rate >60 (60-); Glucose, Blood 135 mg/dL (70-99); Iron Serum 69 ug/dL (65-175); Percent Saturation 31.5 % (20.0-50.0); Potassium, Blood 3.5 mmol/L (3.5-5.5); Sodium, Blood 145 mmol/L (136-145); Thyroid Stimulating Hormone 0.359 uIU/mL (0.360-4.800); Total Iron Binding Capacity 219 ug/dL (250-450); Total Protein, Blood 5.9 g/dL (6.4-8.2)
--- NOTE | 2021-09-01 18:40 | NUR ---
SHIFT SUMMARY. PATIENT IS AWAKE TODAY. MOVES LEGS TO COMMAND AND SPONTANEOUSLY. NO MOVEMENT IN UPPER EXTREMETIES. NODS APPROPRAITELY MOST OF THE TIME. ON TRACH COLLAR 26% O2. COUGHS FREQUENTLY, REQUIRES FREQUENT SUCTIONING. NOTED SOME SKIN BREAKDOWN ON NECK ABOVE TRACH SITE, PROTECTIVE GAUZE APPLIED. SR, BP WNL. NGT WITH CONTINUOUS TUBE FEED. GONZÁLES DRAINING CLEAR YELLOW URINE. S/O AT BEDSIDE TODAY, UPDATED ON PATIENT STATUS, QUESTIONS ANSWERED.
[2021-09-02 00:59] LABS: Source, Urine Catheter
[2021-09-02 01:02] LABS: Bilirubin, Urine Neg (Neg); Blood, Urine 3+ (Neg); Glucose Qualitative, Urine Neg (Neg); Ketones, Urine Neg (Neg); Leukocyte Esterase, Urine 1+ (Neg); Nitrite, Urine Neg (Neg); Protein, Urine 2+ (Neg); Specific Gravity, Urine 1.015 (1.003-1.022); Urobilinogen, Urine NORM (Normal)
[2021-09-02 01:08] LABS: Bacteria Mod /hpf; Color, Urine Yellow (P-Yellow); Red Blood Cells, Urine 0-2 /hpf (0-2); Squamous Epithelial Cells Not Seen /hpf (Few); Yeast/Fungi Urine Mod /hpf
[2021-09-02 01:09] LABS: Appearance, Urine Clear (Clear)
--- NOTE | 2021-09-02 03:41 | NUR ---
SHIFT SUMMARY: NO SIGNIFICANT CHANGE IN PT CONDITION. TOTAL ASSIST WITH ALL CARE, TURNED Q2H, FREQUENT ORAL CARE, TF PER ORDER WITH HOB ELEVATED. PT DOES NOT FOLLOW COMMANDS BUT DID HAVE SOME MOVEMENT OF LOWER EXTREMITIES IN A NONPURPOSFUL MANNER. POWER GLIDE TO LEFT AND RIGHT ARM, FLUCHED, NO S/S INFECTION. NEWLY INSERTED GONZÁLES DRAIN CLEAR YELLOW URINE. TRACH CARE GIVEN, REMAINS ON 26% FIO2 VIA T-PIECE, PT DESATS INTO THE 80'S OF HE COUGHS OFF THE T-PIECE. EXPRATORY WHEEZES NOTED UPPER LOBES, COARSE BREATH SOUNDS THROUGHOUT, SEE ASSESSMENT, BED LOCKED AND LOW, CALL ORTIZ IN REACH. STACEY DAILY
--- NOTE | 2021-09-02 19:00 | NUR ---
ASSUME CARE: PT LYING IN BED W/ TRACH TO T-PIECE AT 26% FIO2 AND SATING >95%. HE OPENS HIS EYES TO SOUND AND SOMETIMES NODS AND FOLLOWS COMMANDS BUT DOES NOT MOVE ANY EXTREMITIES. HR AND BP WNL. RIGHT NARE DOBHOB TO TF RUNNING AT GOAL. GONZÁLES IN PLACE DRAINING YELLOW URINE TO GRAVITY. RECTAL TUBE INTACT DRAINING BROWN STOOL TO GRAVITY. BLE IN FOAM BOOTS. 2 DRESSING OVER ULCERS ON RLE C/D/I. THERE IS REDNESS NOTED TO HIS INNER THIGHS AND TYLER AREA. HE HAS GENERALIZED BRUISING ALONG ABDOMEN AND ON LUE. MEPILEX INTACT ON SACRUM. SEE SHIFT ASSESSMENT FOR DETAILS.
[2021-09-03 04:17] LABS: Hematocrit 26.5 % (37.0-53.0); Hemoglobin 8.1 g/dL (13.5-17.5); Mean Corpuscular HGB 33.8 pg (26.0-34.0); Mean Corpuscular HGB Conc 30.6 g/dL (31.5-36.5); Mean Corpuscular Volume 110 fL (80-100); NRBC ABSOLUTE 0.13 K/mm3 (0.00-0.02); NRBC Auto 0.9 /100 WBC (0.0-0.2); Platelet Count 291 K/mm3 (150-400); RDW Coefficient Variation 17.8 % (11.7-14.2); RDW Standard Deviation 70.3 fL (35.1-46.3); White Blood Cell Count 14.12 K/mm3 (4.00-11.30)
[2021-09-03 04:58] LABS: Alanine Aminotransfer (ALT/SGP 35 U/L (12-78); Albumin, Blood 1.6 g/dL (3.4-5.0); Albumin/Globulin Ratio 0.4 (0.8-1.8); Alk Phos 83 U/L (50-136); Anion Gap 3 mmol/L (6-16); Aspartate Aminotrans (AST/SGOT 23 U/L (12-37); Bilirubin, Total 0.6 mg/dL (0.1-1.0); Blood Urea Nitrogen 31 mg/dL (8-24); Bun/Creatinine Ratio 47.7 (12.0-20.0); CO2, Blood 32 mmol/L (21-32); Calcium, Blood 8.3 mg/dL (8.5-10.1); Chloride, Blood 110 mmol/L (98-108); Creatinine, Blood 0.65 mg/dL (0.60-1.20); Glomerular Filtration Rate >60 (60-); Glucose, Blood 173 mg/dL (70-99); Potassium, Blood 3.6 mmol/L (3.5-5.5); Sodium, Blood 145 mmol/L (136-145); Thyroid Stimulating Hormone 0.458 uIU/mL (0.360-4.800); Total Protein, Blood 5.6 g/dL (6.4-8.2)
--- NOTE | 2021-09-03 06:11 | NUR ---
SHIFT SUMMARY: PT LYING IN BED W/ EYES CLOSED TRACH TO T-PIECE AT 26% FIO2 CURRENTLY SATING 96%. HE OPENS HIS EYES TO SOUND, WILL TRACK, FOLLOW COMMANDS, AND NOD/SHAKE HEAD. HE CAN MOVE HIS BLE BUT HAS BEEN UNABLE TO MOVE HIS BUE. HE DENIES PAIN AT THIS TIME. HR IS 68 AND BP IS 156/73. RIGHT NARE DOBHOFF IS STILL RUNNING TF AT GOAL. GONZÁLES REMAINS IN PLACE DRAINING YELLOW URINE TO GRAVITY. RECTAL TUBE STILL DRAINING LOOSE BROWN STOOL TO GRAVITY. TMAX OF 100.0 AND TYLENOL 650MG WAS GIVEN THIS MORNING. HE HAS A LARGE AMOUNT OF THICK YELLOW SECRETIONS FROM HIS TRACH AND REQUIRES FREQUENT SUCTIONING. SKIN REMAINS WARM AND DRY WITH ALL DRESSINGS INTACT. WILL REPORT TO ONCOMING RN WHEN AVAILABLE.
--- NOTE | 2021-09-03 19:00 | NUR ---
ASSUME CARE: PT LYING IN BED W/ 8.0 PERC TRACH TO T-PIECE AT 26% FIO2 AND SATING AT 95%. HE OPENS HIS EYES SPONT AND NODS APPROP TO QUESTIONS. HE CAN MOVE HIS LOWER EXTREMITIES BUT STILL CANNOT MOVE HIS UPPER EXTREMITIES. WHEN ASKED IF HE IS TRYING TO MOVE HIS ARMS/HANDS HE NODS YES SO IT IS UNCLEAR IF HE IS STILL TOO WEAK VS SOMETHING ELSE. HE DENIES PAIN. TEMP CURRENTLY 100.0. HR AND BP WNL. GONZÁLES DRAINING YELLOW URINE TO GRAVITY. RECTAL TUBE IN PLACE DRAINING BROWN STOOL TO GRAVITY. RT NARE DOBHOFF TO TF RUNNING AT GOAL. SKIN IS WARM AND DRY WITH RLE AND SACRAL DRESSING INTACT. SEE SHIFT ASSESSMENT FOR DETAILS.
[2021-09-04 04:29] LABS: Hemoglobin 8.3 g/dL (13.5-17.5); Mean Corpuscular HGB 33.5 pg (26.0-34.0); Mean Corpuscular HGB Conc 30.7 g/dL (31.5-36.5); Mean Corpuscular Volume 109 fL (80-100); Mean Platelet Volume 9.7 fL (9.1-12.4); NRBC ABSOLUTE 0.08 K/mm3 (0.00-0.02); NRBC Auto 0.6 /100 WBC (0.0-0.2); Platelet Count 312 K/mm3 (150-400); RDW Coefficient Variation 18.2 % (11.7-14.2); RDW Standard Deviation 70.6 fL (35.1-46.3); Red Blood Cell Count 2.48 M/mm3 (4.30-5.90); White Blood Cell Count 14.13 K/mm3 (4.00-11.30)
[2021-09-04 04:51] LABS: Anion Gap 3 mmol/L (6-16); Blood Urea Nitrogen 28 mg/dL (8-24); Bun/Creatinine Ratio 42.8 (12.0-20.0); CO2, Blood 32 mmol/L (21-32); Calcium, Blood 8.2 mg/dL (8.5-10.1); Chloride, Blood 110 mmol/L (98-108); Creatinine, Blood 0.65 mg/dL (0.60-1.20); Glomerular Filtration Rate >60 (60-); Glucose, Blood 165 mg/dL (70-99); Potassium, Blood 3.7 mmol/L (3.5-5.5); Sodium, Blood 145 mmol/L (136-145)
--- NOTE | 2021-09-04 06:17 | NUR ---
SHIFT SUMMARY: PT IS LYING IN BED W/ TRACH TO T-PIECE AT 26% FIO2 CURRENTLY SATING 96%. HR IS 80, BP 153/80, AND TEMP IS 100.2. HE IS ALERT, NODS APPROPIATELY, FOLLOWS COMMANDS, AND MOVES LOWER EXTREMITIES. HE IS STILL UNABLE TO MOVE UPPER EXTREMITIES AND NOW TRIES TO MOUTH WORDS/SPEAK. HE CONTINUES TO HAVE COPIOUS AMOUNTS OF THICK YELLOW SECRETIONS FROM THE TRACH AND REQUIRES FREQUENT SUCTIONING. GONZÁLES REMAINS IN PLACE DRAINING YELLOW URINE TO GRAVITY. RT DOBHOFF STILL TO TF RUNNING AT GOAL. RECTAL TUBE INTACT DRAINING LOOSE BROWN STOOL TO GRAVITY. SKIN IS STILL WARM AND DRY WITH ALL DRESSINGS INTACT. WILL REPORT TO ONCOMING RN WHEN AVAILABLE.
--- NOTE | 2021-09-04 18:52 | NUR ---
Pt AAO1, responds to command but is extremely weak. Pt VSS and in no acute distress. Pt family updated on plan of care. 1700 Pt reassessed, no change in pt status. Will monitor pt until remainder of shift.
[2021-09-05 04:41] LABS: Hematocrit 27.8 % (37.0-53.0); Hemoglobin 8.5 g/dL (13.5-17.5); Mean Corpuscular HGB 33.9 pg (26.0-34.0); Mean Corpuscular HGB Conc 30.6 g/dL (31.5-36.5); Mean Corpuscular Volume 111 fL (80-100); Mean Platelet Volume 9.3 fL (9.1-12.4); NRBC ABSOLUTE 0.03 K/mm3 (0.00-0.02); NRBC Auto 0.2 /100 WBC (0.0-0.2); Platelet Count 333 K/mm3 (150-400); RDW Coefficient Variation 18.5 % (11.7-14.2); RDW Standard Deviation 72.3 fL (35.1-46.3); Red Blood Cell Count 2.51 M/mm3 (4.30-5.90); White Blood Cell Count 13.84 K/mm3 (4.00-11.30)
[2021-09-05 05:00] LABS: Alanine Aminotransfer (ALT/SGP 35 U/L (12-78); Albumin, Blood 1.6 g/dL (3.4-5.0); Albumin/Globulin Ratio 0.4 (0.8-1.8); Alk Phos 84 U/L (50-136); Anion Gap 3 mmol/L (6-16); Aspartate Aminotrans (AST/SGOT 26 U/L (12-37); Bilirubin, Total 0.7 mg/dL (0.1-1.0); Blood Urea Nitrogen 25 mg/dL (8-24); Bun/Creatinine Ratio 38.5 (12.0-20.0); CO2, Blood 32 mmol/L (21-32); Calcium, Blood 8.2 mg/dL (8.5-10.1); Chloride, Blood 110 mmol/L (98-108); Creatinine, Blood 0.65 mg/dL (0.60-1.20); Globulin, Blood 4.3 g/dL (2.2-4.0); Glomerular Filtration Rate >60 (60-); Glucose, Blood 142 mg/dL (70-99); Potassium, Blood 3.9 mmol/L (3.5-5.5); Sodium, Blood 145 mmol/L (136-145); Total Protein, Blood 5.9 g/dL (6.4-8.2)
--- NOTE | 2021-09-05 10:06 | NUR ---
Pt recieved on bed trached, on T-Piece tolerating well. Pt reactive to tactile and verbal stimuli and moves head and lower extremities. Pt has Dubhoff infusing Pivot @ goal rate; tolerating well. Rectal tube and Taylor catheter present draining output. Dr. Malone seen and assessed pt; no orders recieved. Notified Dr. Malone regarding [facility] requirements of pt needing a Peg Tube before he can get accepted to [facility]. Pt repositioned and meds given. Will monitor pt closely.
[2021-09-06 09:00] LABS: BASOPHILS ABSOLUTE AUTO 0.02 K/mm3 (0.00-0.23); BASOPHILS PERCENT AUTO 0 % (0-2); EOSINOPHILS ABSOLUTE AUTO 0.68 K/mm3 (0.00-0.68); EOSINOPHILS PERCENT AUTO 5 % (0-6); Hematocrit 27.2 % (37.0-53.0); Hemoglobin 8.4 g/dL (13.5-17.5); IMMATURE GRAN PERCENT AUTO 1 % (0-1); LYMPHOCYTES ABSOLUTE AUTO 1.85 K/mm3 (0.84-5.20); LYMPHOCYTES PERCENT AUTO 15 % (21-46); MONOCYTES ABSOLUTE AUTO 0.81 K/mm3 (0.16-1.47); MONOCYTES PERCENT AUTO 6 % (4-13); Mean Corpuscular HGB 34.7 pg (26.0-34.0); Mean Corpuscular HGB Conc 30.9 g/dL (31.5-36.5); Mean Corpuscular Volume 112 fL (80-100); Mean Platelet Volume 9.4 fL (9.1-12.4); NEUTROPHILS ABSOLUTE AUTO 9.34 K/mm3 (1.96-9.15); NEUTROPHILS PERCENT AUTO 73 % (41-73); NRBC ABSOLUTE 0.03 K/mm3 (0.00-0.02); NRBC Auto 0.2 /100 WBC (0.0-0.2); Platelet Count 342 K/mm3 (150-400); RDW Coefficient Variation 18.8 % (11.7-14.2); RDW Standard Deviation 75.7 fL (35.1-46.3); Red Blood Cell Count 2.42 M/mm3 (4.30-5.90)
[2021-09-06 09:19] LABS: Anion Gap 3 mmol/L (6-16); Blood Urea Nitrogen 24 mg/dL (8-24); Bun/Creatinine Ratio 40.1 (12.0-20.0); CO2, Blood 31 mmol/L (21-32); Calcium, Blood 8.3 mg/dL (8.5-10.1); Chloride, Blood 111 mmol/L (98-108); Glomerular Filtration Rate >60 (60-); Glucose, Blood 137 mg/dL (70-99); Sodium, Blood 145 mmol/L (136-145)
--- NOTE | 2021-09-07 00:50 | NUR ---
MARKY IS MORE AWAKE AT MIDNIGHT, HE IS MORE ENGAGING THAN EARLIER. HE IS COUGHING UP QUITE A BIT OF THICK ALCAZAR RETURN. HE IS AWARE OF THE DATE AND LENGTH OF HIS STAY, HE IS LOOKING FORWARD TO THE PROCEDURE LATER THIS AM FOR HIS PEG TUBE SO HE CAN GET RID OF THE TUBE IN HIS NOSE. NO NOTICEABLE MOVEMENT OF THE UPPER EXTREMITIES, IT SEEMS IF THERE IS SOME SMALL MOVEMENTS IN THE LOWER EXTREMITIES. HIS TUBE FEEDING HAS BEEN TURNED OFF AND THE DOBBHOFF FLUSHED WITH 30ML H20. NO OTHER CHANGES.
[2021-09-07 04:38] LABS: BASOPHILS ABSOLUTE AUTO 0.04 K/mm3 (0.00-0.23); BASOPHILS PERCENT AUTO 0 % (0-2); EOSINOPHILS ABSOLUTE AUTO 0.62 K/mm3 (0.00-0.68); EOSINOPHILS PERCENT AUTO 4 % (0-6); Hematocrit 28.1 % (37.0-53.0); Hemoglobin 8.5 g/dL (13.5-17.5); IMMATURE GRAN PERCENT AUTO 1 % (0-1); LYMPHOCYTES ABSOLUTE AUTO 1.77 K/mm3 (0.84-5.20); LYMPHOCYTES PERCENT AUTO 11 % (21-46); MONOCYTES PERCENT AUTO 6 % (4-13); Mean Corpuscular HGB 33.9 pg (26.0-34.0); Mean Corpuscular HGB Conc 30.2 g/dL (31.5-36.5); Mean Corpuscular Volume 112 fL (80-100); Mean Platelet Volume 9.1 fL (9.1-12.4); NEUTROPHILS ABSOLUTE AUTO 11.99 K/mm3 (1.96-9.15); NEUTROPHILS PERCENT AUTO 77 % (41-73); NRBC ABSOLUTE 0.02 K/mm3 (0.00-0.02); NRBC Auto 0.1 /100 WBC (0.0-0.2); Platelet Count 317 K/mm3 (150-400); RDW Coefficient Variation 18.8 % (11.7-14.2); RDW Standard Deviation 76.8 fL (35.1-46.3); Red Blood Cell Count 2.51 M/mm3 (4.30-5.90); White Blood Cell Count 15.52 K/mm3 (4.00-11.30)
[2021-09-07 05:08] LABS: Alanine Aminotransfer (ALT/SGP 35 U/L (12-78); Albumin, Blood 1.6 g/dL (3.4-5.0); Albumin/Globulin Ratio 0.4 (0.8-1.8); Alk Phos 86 U/L (50-136); Anion Gap 2 mmol/L (6-16); Aspartate Aminotrans (AST/SGOT 27 U/L (12-37); Bilirubin, Total 0.5 mg/dL (0.1-1.0); Blood Urea Nitrogen 20 mg/dL (8-24); CO2, Blood 32 mmol/L (21-32); Calcium, Blood 8.3 mg/dL (8.5-10.1); Chloride, Blood 112 mmol/L (98-108); Creatinine, Blood 0.65 mg/dL (0.60-1.20); Globulin, Blood 4.2 g/dL (2.2-4.0); Glomerular Filtration Rate >60 (60-); Glucose, Blood 98 mg/dL (70-99); Potassium, Blood 4.3 mmol/L (3.5-5.5); Sodium, Blood 146 mmol/L (136-145); Total Protein, Blood 5.8 g/dL (6.4-8.2)
--- NOTE | 2021-09-07 06:17 | NUR ---
MARKY IS LOOKING FORWARD TO HIS PROCEDURE, HE ASKED WHAT TIME IT WOULD HAPPEN. HE ANSWERS ABOUT HOME MEDICATIONS, HE ENGAGES WITH STAFF AND SMILES. HE CONTINUES ON THE T-PIECE WITH HUMIDIFIED AIR AND SATS STAY >98% HE CONTINUES TO COUGH WITH YELLOW SECRETIONS, ROBITUSSIN DID HELP FOR A LITTLE BIT. TUBE FEEDING IS OFF SINCE MIDNIGHT AND LOVENOX HAS BEEN HELD FOR PEG TUBE PLACEMENT TODAY. WILL REPORT TO NEXT SHIFT WHEN ABLE.
--- NOTE | 2021-09-07 12:43 | NUR ---
PT AWAKE. PT APPEARS TO BE ANSWERING QUESTIONS APPROPRIATELY WITH SHAKING HEAD YES/NO. PT LS CLEAR ON AUSCULTATION AT THIS TIME ALTHOUGH HE HAS TRACH AND OCCASIOINAL COUGH. PT POWER-GLIDE TO YAW FLUSHED AND HAS IV LR INFUSING AT TKO RATE FOR PROCEDURE. PT IS IN ICU 9. PT REPORTED TO BE NPO. History, Chart, Medications and Allergies reviewed before start of procedure.Pre-Op teaching done, PT SHAKES HEAD YES TO UNDERSTAND.
--- NOTE | 2021-09-07 13:31 | NUR ---
09/07/21 1331 Raoul Sanders History, Chart, Medications and Allergies reviewed before start of procedure. MONITOR INTACT WITH CONTINUOUS PULSE OXIMETRY AND INTERMITTENT BP. EKG MONITORED DURING PROCEDURE. O2 VIA N/C INTACT THROUGHOUT SEDATION/PROCEDURE. Bite Block Placed, WILL REMOVE AFTER PROCEDURE. See Anesthesia record/DR MONTIEL.
--- NOTE | 2021-09-07 20:33 | NUR ---
ASSUMED CARE OF MARKY FROM [place]. HE IS VERY SLEEPY, ANSWERS ME. REFUSES ORAL CARE, KEEPING HIS LIPS TIGHTLY TOGETHER AND SHAKING HIS HEAD "NO". HIS LUNGS ARE DIMINISHED BUT CLEAR, HIS TRACH IS INTACT WITH T-PIECE BLOWING HUMIDIFIED OXYGEN. ABD SOFT, LARGE, PEG TUBE CLEAN/DRY/INTACT. GONZÁLES DRAINING TO GRAVITY AND RECTAL TUBE IN PLACE. FEET ARE IN BOOTS, PULSES PALPABLE, RADIAL PULSES GOOD WELL, NO SPONTANEOUS MOVEMENT NOTED, HAND SQUEEZE DOES NOT RECIPROCATE. REPOSITIONED.
[2021-09-07 22:09] LABS: C DIFFICILE DNA NEGATIVE (Negative)
--- NOTE | 2021-09-08 | NUR ---
I HAVE SPENT SOME TIME TALKING WITH MARKY ABOUT THE PLAN FOR HIM AND HIS HEALTH. HE HAS EXPRESSED CONCERN REGARDING THE TRANSITION TO REHABILITATION. HE IS WANTING TO BE SURE THAT HIS IS AWARE OF WHAT IS HAPPENING AND THAT SHE IS IN AGREEMENT. I TOLD HIM THAT I WOULD BE CERTAIN TO PASS ALONG THAT HE WOULD LIKE TO SEE HIS AND TALK WITH HER IN REGARDS TO THE SITUATION. WE DISCUSSED HOW HE IS NOT FIT TO GO HOME AT THIS STAGE, HE WANTED A RECAP OF WHAT HE HAS BEEN THROUGH WHILE HERE IN THE HOSPITAL. HE IS SAYING IT IS A LOT TO PROCESS.
--- NOTE | 2021-09-08 05:48 | NUR ---
MARKY HAS BEEN QUITE ENGAGING, WE HAVE HAD MULTIPLE CONVERSATIONS T/O THE SHIFT IN REGARDS TO HIS CARE, HIS ILLNESS, HIS RECOVERY AND PLANS FOR THE FUTURE. HE IS TRYING TO MOVE HIS FINGERS, HE IS UNABLE TO GRASP OR MOVE HIS LEGS. HE HAS BEEN GIVEN A SOFT TOUCH CALL LIGHT AND IS WORKING ON TRYING TO TOUCH IT. HE WAS ABLE TO CALL OUT FOR HELP ONCE THIS SHIFT TO LET US KNOW HIS LEGS NEEDED REPOSITIONED. HE HAD A BATH, HE HAD A BED CHANGE, HE WAS ABLE TO SLEEP A BIT, HE CONTINUES WITH THE TRACH, HUMIDIFIED AIR AND INLINE SUCTION, LESS PRODUCTIVE TODAY. CONTINUES THICK YELLOW RETURN, SLIGHTLY BLOOD TINGED. GONZÁLES TO GRAVITY DRAINAGE, NO ADDITIONAL OUTPUT FROM RECTAL TUBE. BUTTOCKS DRESSED WITH MEPITEL AND BORDER GAUZE. ARMS PITS TREATED WITH NYSTATIN AND POWDER. HANDS ELEVATED ON PILLOWS FOR SWELLING. TUBE FEEDING RESTARTED WITH NEW JEVITY 1.2, STARTED AT 10ML/HR, INCREASED TO 20ML WITH 50ML FLUSHES, WORKING TOWARD GOAL OF 80ML/HR AND 150ML PER 4 HOURS, RESPECTIVELY. HIS SEMGLEE WAS HELD LAST NIGHT FOR BLOOD SUGARS OF 81 AND 79.
[2021-09-08 09:23] LABS: BASOPHILS ABSOLUTE AUTO 0.02 K/mm3 (0.00-0.23); BASOPHILS PERCENT AUTO 0 % (0-2); EOSINOPHILS ABSOLUTE AUTO 0.51 K/mm3 (0.00-0.68); EOSINOPHILS PERCENT AUTO 4 % (0-6); Hematocrit 27.7 % (37.0-53.0); Hemoglobin 8.5 g/dL (13.5-17.5); IMMATURE GRAN ABSOLUTE AUTO 0.07 K/mm3 (0.00-0.10); IMMATURE GRAN PERCENT AUTO 1 % (0-1); LYMPHOCYTES ABSOLUTE AUTO 1.54 K/mm3 (0.84-5.20); LYMPHOCYTES PERCENT AUTO 13 % (21-46); MONOCYTES ABSOLUTE AUTO 1.03 K/mm3 (0.16-1.47); MONOCYTES PERCENT AUTO 8 % (4-13); Mean Corpuscular HGB 34.3 pg (26.0-34.0); Mean Corpuscular HGB Conc 30.7 g/dL (31.5-36.5); Mean Corpuscular Volume 112 fL (80-100); Mean Platelet Volume 9.3 fL (9.1-12.4); NEUTROPHILS ABSOLUTE AUTO 9.12 K/mm3 (1.96-9.15); NEUTROPHILS PERCENT AUTO 74 % (41-73); Platelet Count 297 K/mm3 (150-400); RDW Coefficient Variation 18.9 % (11.7-14.2); RDW Standard Deviation 77.4 fL (35.1-46.3); Red Blood Cell Count 2.48 M/mm3 (4.30-5.90); White Blood Cell Count 12.29 K/mm3 (4.00-11.30)
[2021-09-08 09:49] LABS: Alanine Aminotransfer (ALT/SGP 36 U/L (12-78); Albumin, Blood 1.6 g/dL (3.4-5.0); Albumin/Globulin Ratio 0.5 (0.8-1.8); Alk Phos 83 U/L (50-136); Anion Gap 6 mmol/L (6-16); Aspartate Aminotrans (AST/SGOT 24 U/L (12-37); Bilirubin, Total 0.5 mg/dL (0.1-1.0); Blood Urea Nitrogen 18 mg/dL (8-24); Bun/Creatinine Ratio 26.4 (12.0-20.0); CO2, Blood 29 mmol/L (21-32); Calcium, Blood 8.1 mg/dL (8.5-10.1); Chloride, Blood 112 mmol/L (98-108); Creatinine, Blood 0.68 mg/dL (0.60-1.20); Globulin, Blood 3.5 g/dL (2.2-4.0); Glomerular Filtration Rate >60 (60-); Glucose, Blood 88 mg/dL (70-99); Potassium, Blood 4.4 mmol/L (3.5-5.5); Sodium, Blood 147 mmol/L (136-145); Total Protein, Blood 5.1 g/dL (6.4-8.2)
--- NOTE | 2021-09-08 18:11 | NUR ---
ASSUMED CARE OF PATIENT IN AM. PT RESTING COMFORTABLE. PRETTY UNEVENTFUL DAY. HERE TODAY FOR 4 HOURS. pT UP TO CHAIR AT 1100 AND ASKED TO GO BACK INTO BED BY 1200. STATED CHAIR WAS UNCOMFORTABLE. pT ALSO TRIED PASSIE FOR AROUND 30 MIN BUT ASK TO REMOVE IT MADE HIM FEEL PRESURT TO BREATH. WITH CUFF UP, PT GIVEN A FEW ICE CHIPS FOR COMFORT AND TOLL WELL. NO ISSUES WITH SWALLOW NOTED. PT ASSESSMENT STATED IN CHART. NO COVERAGE OF INSULIN GIVEN PT BS REMAINS IN THE 80-105 RANGE.
--- NOTE | 2021-09-08 20:00 | NUR ---
MARKY CONTINUES ON T-PIECE VIA HUMIDIFIED ROOM AIR. HE IS COUGHING AND EXPECTORATING WHITISH/ALCAZAR RETURN. ENCOURAGING HIM TO MOVE HIS EXTREMITIES. HE IS ABLE TO MOVE HIS FINGERS ON THE RIGHT HAND, HE IS ABLE TO MOVE HIS LEFT BICEP, MOVE HIS THIGHS, BUT UNABLE TO WIGGLE HIS TOES, WORKING ON USING THE CALL LIGHT AND THE SOFT BUTTON. HE IS ABLE TO HOLLER OUT AND IS COMMUNICATING WELL. HE IS TOLERATING ICE CHIPS WELL. CONT WITH GONZÁLES TO GRAVITY AND RECTAL TUBE WELL. BUTTOCKS REMAIN DRESSED FROM YESTERDAY.
--- NOTE | 2021-09-09 01:08 | NUR ---
WHEN DOING OUR MIDNIGHT TURN WITH MARKY, IT WAS NOTICED THAT THE RECTAL TUBE WAS LEAKING. HE WAS TURNED AND CLEANED, WOUND CARE TO BUTTOCKS DONE, RECTAL TUBE CHECKED FOR PLACEMENT, REPOSITIONED. BUTTOCKS LOOKING MORE RAW, REDRESSED WITH HYDROCOLLOID. WILL CONTINUE TO MONITOR.
--- NOTE | 2021-09-09 01:11 | NUR ---
THERE WAS NO RESIDUAL, SO TUBE FEEDINGS INCREASED TO FINAL GOAL RATE OF 80ML/ HR AND 150ML H2O Q4H. BLOOD SUGAR WAS ELEVATED AND COVERED BY REGULAR INSULIN.
--- NOTE | 2021-09-09 03:40 | NUR ---
MARKY CALLED ME IN HIS ROOM AND JUST SAID HE IS SO UNCOMFORTABLE. I SPENT A GREAT DEAL OF TIME TRYING TO REPOSITION EXTREMITIES AND TRY TO MAKE HIM MORE COMFORTABLE. AFTER MULTIPLE FAILED ATTEMPTS I ASKED FOR ASSIST FROM ANOTHER RN AND WE WERE ABLE TO FINALLY MAKE A BIT OF ADJUSTMENT THAT HE IS ABLE TO TOLERATE. HE DEFINITELY NEEDS MORE HELP IN WORKING HIS MUSCLES AND TRYING TO GAIN STRENGTH BACK, HE SAID HE FEELS LIKE HIS MUSCLES ARE CRAMPING. HE ONLY HAS TYLENOL AND THAT HAD ALREADY BEEN GIVEN FOR THE TEMPERATURE.
[2021-09-09 04:30] LABS: BASOPHILS ABSOLUTE AUTO 0.03 K/mm3 (0.00-0.23); BASOPHILS PERCENT AUTO 0 % (0-2); EOSINOPHILS ABSOLUTE AUTO 0.43 K/mm3 (0.00-0.68); EOSINOPHILS PERCENT AUTO 3 % (0-6); Hematocrit 28.4 % (37.0-53.0); Hemoglobin 8.6 g/dL (13.5-17.5); IMMATURE GRAN ABSOLUTE AUTO 0.07 K/mm3 (0.00-0.10); IMMATURE GRAN PERCENT AUTO 1 % (0-1); LYMPHOCYTES ABSOLUTE AUTO 1.49 K/mm3 (0.84-5.20); LYMPHOCYTES PERCENT AUTO 11 % (21-46); MONOCYTES PERCENT AUTO 8 % (4-13); Mean Corpuscular HGB 33.7 pg (26.0-34.0); Mean Corpuscular HGB Conc 30.3 g/dL (31.5-36.5); Mean Corpuscular Volume 111 fL (80-100); Mean Platelet Volume 9.1 fL (9.1-12.4); NEUTROPHILS ABSOLUTE AUTO 11.07 K/mm3 (1.96-9.15); NEUTROPHILS PERCENT AUTO 78 % (41-73); Platelet Count 280 K/mm3 (150-400); RDW Coefficient Variation 18.7 % (11.7-14.2); RDW Standard Deviation 75.9 fL (35.1-46.3); Red Blood Cell Count 2.55 M/mm3 (4.30-5.90); White Blood Cell Count 14.19 K/mm3 (4.00-11.30)
[2021-09-09 04:50] LABS: Alanine Aminotransfer (ALT/SGP 32 U/L (12-78); Albumin, Blood 1.6 g/dL (3.4-5.0); Albumin/Globulin Ratio 0.4 (0.8-1.8); Alk Phos 87 U/L (50-136); Anion Gap 5 mmol/L (6-16); Aspartate Aminotrans (AST/SGOT 17 U/L (12-37); Bilirubin, Total 0.5 mg/dL (0.1-1.0); Blood Urea Nitrogen 17 mg/dL (8-24); Bun/Creatinine Ratio 23.7 (12.0-20.0); CO2, Blood 28 mmol/L (21-32); Calcium, Blood 8.5 mg/dL (8.5-10.1); Chloride, Blood 110 mmol/L (98-108); Creatinine, Blood 0.72 mg/dL (0.60-1.20); Globulin, Blood 4.3 g/dL (2.2-4.0); Glomerular Filtration Rate >60 (60-); Glucose, Blood 142 mg/dL (70-99); Potassium, Blood 4.2 mmol/L (3.5-5.5); Sodium, Blood 143 mmol/L (136-145); Total Protein, Blood 5.9 g/dL (6.4-8.2)
--- NOTE | 2021-09-09 05:28 | NUR ---
MARKY WAS AWAKE MOST OF THE NIGHT, HE COULDN'T GET COMFORTABLE. HE FINALLY FELL ASLEEP ABOUT AN HOUR AGO. HE CONTINUES ON THE T-PIECE WITH HUMIDIFIED ROOM AIR. HE WAS MEDICATED FOR HIS COUGHING AND FOR HIS INCREASE IN TEMPERATURE. HIS BUTTOCKS WERE RE-DRESSED AND HE WAS REPOSITIONED SEVERAL TIMES IN AN EFFORT TO KEEP HIM COMFORTABLE. WE CONTINUED TO WORK ON THE USE OF HIS HANDS AND BEING ABLE TO USE THE CALL LIGHT. HE WAS NOT SUCCESSFUL. HE IS ABLE TO CALL OUT "NURSE" TO GET OUR ATTENTION. HE TOLERATED ICE CHIPS WELL. RECTAL TUBE IN PLACE, GONZÁLES WITH DARK YELLOW SEDIMENT RETURN, TEMP CONT. TO HOVER BELOW 101. VSS.
--- NOTE | 2021-09-09 20:00 | NUR ---
assumed care after report recv'd assessment complete. alert and oriented, able to mouth words with some words being audible. trach downsized earlier in day, tolerating well. oxygen to trach 26% FiO2 via T-piece. productive cough with thick yellow sputum. in-line suction to trach. lungs coarse with rhonchi bilat very weak, able to squeeze hands, but unable to lift arms. more movement to right hand than left. legs able to move side to side but unable to lift.
--- NOTE | 2021-09-10 05:40 | NUR ---
Assessment unchanged through night. Calls out multiple times when turned to side, only wants to lay supine, educated on pressure ulcer prevention and that buttocks with very fragile skin with exoriation. will not turn to left, will turn to right but calls out multiple times while laying on right side wanting turned back to supine position. when on right side, nurse turn slight and then far to side to help with comfort. soft boots in place for foot drop prevention.
[2021-09-10 06:11] LABS: BASOPHILS ABSOLUTE AUTO 0.03 K/mm3 (0.00-0.23); BASOPHILS PERCENT AUTO 0 % (0-2); EOSINOPHILS ABSOLUTE AUTO 0.39 K/mm3 (0.00-0.68); EOSINOPHILS PERCENT AUTO 4 % (0-6); Hematocrit 26.5 % (37.0-53.0); Hemoglobin 8.2 g/dL (13.5-17.5); IMMATURE GRAN ABSOLUTE AUTO 0.07 K/mm3 (0.00-0.10); IMMATURE GRAN PERCENT AUTO 1 % (0-1); LYMPHOCYTES ABSOLUTE AUTO 1.28 K/mm3 (0.84-5.20); LYMPHOCYTES PERCENT AUTO 12 % (21-46); MONOCYTES ABSOLUTE AUTO 0.93 K/mm3 (0.16-1.47); MONOCYTES PERCENT AUTO 9 % (4-13); Mean Corpuscular HGB 34.5 pg (26.0-34.0); Mean Corpuscular HGB Conc 30.9 g/dL (31.5-36.5); Mean Corpuscular Volume 111 fL (80-100); Mean Platelet Volume 9.2 fL (9.1-12.4); NEUTROPHILS ABSOLUTE AUTO 8.13 K/mm3 (1.96-9.15); NEUTROPHILS PERCENT AUTO 75 % (41-73); Platelet Count 282 K/mm3 (150-400); RDW Coefficient Variation 18.3 % (11.7-14.2); RDW Standard Deviation 74.7 fL (35.1-46.3); Red Blood Cell Count 2.38 M/mm3 (4.30-5.90); White Blood Cell Count 10.83 K/mm3 (4.00-11.30)
[2021-09-10 06:32] LABS: Alanine Aminotransfer (ALT/SGP 26 U/L (12-78); Albumin, Blood 1.5 g/dL (3.4-5.0); Albumin/Globulin Ratio 0.4 (0.8-1.8); Alk Phos 76 U/L (50-136); Anion Gap 5 mmol/L (6-16); Aspartate Aminotrans (AST/SGOT 17 U/L (12-37); Bilirubin, Total 0.4 mg/dL (0.1-1.0); Blood Urea Nitrogen 15 mg/dL (8-24); Bun/Creatinine Ratio 22.9 (12.0-20.0); CO2, Blood 27 mmol/L (21-32); Calcium, Blood 8.2 mg/dL (8.5-10.1); Chloride, Blood 109 mmol/L (98-108); Creatinine, Blood 0.66 mg/dL (0.60-1.20); Glomerular Filtration Rate >60 (60-); Glucose, Blood 157 mg/dL (70-99); Potassium, Blood 4.2 mmol/L (3.5-5.5); Sodium, Blood 141 mmol/L (136-145); Total Protein, Blood 5.5 g/dL (6.4-8.2)
--- NOTE | 2021-09-10 18:37 | NUR ---
ASSUMED CARE OF PT AT [facility] 1300 TODAY. pER BEDSIDE REPORT, TRACH WAS DOWNSIZED FROM 8 TO 6 TODAY.pT IS ABLE TO COMMUNICATE VERBALLY BUT VOICE IS WEAK WITH LIMITED USE. IN ADDITION HE CURRENTLY HAS A RECTAL TUBE, PEG LINE FOR PARENTERAL NUTRITION, AND A GONZÁLES CATHETER. pT IS WEAK AND UNABLE TO LIFT HIS ARMS AND UNABLE TO ADJUST HIMSELF IN BED. hE HAS COMPLAINED OF "butt cramps" and was repositioned several times since we assumed care. he received oral care today and trach care was performed as well. MRSA precautions are in place.
[2021-09-11 04:09] LABS: BASOPHILS ABSOLUTE AUTO 0.04 K/mm3 (0.00-0.23); BASOPHILS PERCENT AUTO 0 % (0-2); EOSINOPHILS PERCENT AUTO 3 % (0-6); Hematocrit 27.6 % (37.0-53.0); Hemoglobin 8.7 g/dL (13.5-17.5); IMMATURE GRAN ABSOLUTE AUTO 0.05 K/mm3 (0.00-0.10); IMMATURE GRAN PERCENT AUTO 1 % (0-1); LYMPHOCYTES ABSOLUTE AUTO 1.46 K/mm3 (0.84-5.20); LYMPHOCYTES PERCENT AUTO 15 % (21-46); MONOCYTES ABSOLUTE AUTO 0.86 K/mm3 (0.16-1.47); MONOCYTES PERCENT AUTO 9 % (4-13); Mean Corpuscular HGB 34.3 pg (26.0-34.0); Mean Corpuscular HGB Conc 31.5 g/dL (31.5-36.5); Mean Corpuscular Volume 109 fL (80-100); NEUTROPHILS ABSOLUTE AUTO 7.17 K/mm3 (1.96-9.15); NEUTROPHILS PERCENT AUTO 73 % (41-73); Platelet Count 298 K/mm3 (150-400); RDW Standard Deviation 71.7 fL (35.1-46.3); Red Blood Cell Count 2.54 M/mm3 (4.30-5.90); White Blood Cell Count 9.88 K/mm3 (4.00-11.30)
[2021-09-11 04:54] LABS: Alanine Aminotransfer (ALT/SGP 30 U/L (12-78); Albumin, Blood 1.6 g/dL (3.4-5.0); Albumin/Globulin Ratio 0.4 (0.8-1.8); Alk Phos 80 U/L (50-136); Anion Gap 6 mmol/L (6-16); Aspartate Aminotrans (AST/SGOT 16 U/L (12-37); Bilirubin, Total 0.4 mg/dL (0.1-1.0); Blood Urea Nitrogen 14 mg/dL (8-24); Bun/Creatinine Ratio 19.5 (12.0-20.0); CO2, Blood 27 mmol/L (21-32); Chloride, Blood 107 mmol/L (98-108); Creatinine, Blood 0.72 mg/dL (0.60-1.20); Globulin, Blood 3.6 g/dL (2.2-4.0); Glomerular Filtration Rate >60 (60-); Glucose, Blood 135 mg/dL (70-99); Potassium, Blood 4.5 mmol/L (3.5-5.5); Sodium, Blood 140 mmol/L (136-145); Total Protein, Blood 5.2 g/dL (6.4-8.2)
--- NOTE | 2021-09-11 05:45 | NUR ---
SHIFT SUMMARY: PT HAD FAIR SHIFT, VERY FOCUSED ON RESP STATUS AND TRACH, ASKING TO BE SUCTIONED MULTIPLE TIMES BUT HAS ONLY SMALL AMOUNT SECRETIONS. EDUCATED ON INCREASED SECRETIONS WITH FREQ SUCTIONING, BUT PT NON-RECEPTIVE TO EDUCATION. CALL TO RT PER PT REQUEST, ORIGINALLY ON T-PIECE BUT KEPT COUGHING IT OFF, CHANGED TO TRACH COLLAR BUT PT CONCERNED HES NOT BREATHING WELL EVEN THOUGH SATS ARE 99 AND 100%. REQUIRES TOTAL ASSIST WILL ALL ASPECTS OF CARE DUE TO INABILITY TO MOVE EXTREMITIES AND OBESITY, TURN Q 2 HOURS WITH ASSIST OF ADDITIONAL STAFF AND OVERHEAD LIFT. TELE SHOWS SR, VSS, PEG TUBE INFUSING ORDERED TUBE FEED AT GOAL RATE AND TOLERATED WELL. BOTH GONZÁLES AND RECTAL TUBE INTACT AND DRAINING TO BSD. ABLE TO COMMUNICATE NEEDS VIA ONE OR TWO WORD SENTENCES. BED LOCKED AND LOW, CALL LIGHT IN REACH. STACEY DAILY
--- NOTE | 2021-09-11 18:30 | NUR ---
Pt was switched from continuous to bolus tube feeding today. RT spent time with pt and did trach care which the pt tolerated well. He was repositioned q2h and the skin breakdown ob his backside was cleaned and bandaged. At one point rectal tube leaked and pt was cleaned as well as bedding and gown changed. Trach has been downsized from 8 to 6 and pt is slowly able to communicate verbally. Pt was cooperative today and did not express any anxiety or pain. Significant other visited for a couple of hours today and expressed concern about the site of snf placement for the pt. She and the family are hoping to have him as close to home as possible.
--- NOTE | 2021-09-12 05:18 | NUR ---
OIL EXPELLER OPERATOR SUMMARY PT IS AXO X4 AND USES THE CALL LIGHT TO MAKE HIS NEEDS KNOWN. PT'S BP WNL AND STABLE THIS SHIFT. HR HAS BEEN SR/ST 90-100'S THIS SHIFT. O2 SATS >90% W TRACH T-PEICE AT 30% FIO2. PT SUCTIONED THIS SHIFT W MINIMAL PINK-TINGED SPUTUM. PT SLEPT COMFORTABLY FOR MOST OF THE SHIFT W SOFT-TOUCH CALL LIGHT WITHIN REACH. WILL REPORT TO ONCOMING RN.
--- NOTE | 2021-09-12 11:41 | NUR ---
PATIENT ALERT AND ORIENTED X3-4. PERRLA. UNABLE TO MOVE LOWER EXTREMITIES. SENSATION IS PRESENT THROUGHOUT BODY. VERY WEAK SENIOR ETL DEVELOPER STRENGTH AND ABLE TO MOVE FINGERS. BILATERAL FOOT DROP. DENIES PAIN THIS AM. ON 7L AT 26% FIO2 VIA TRACH COLLAR. TRACH WNL. SUCTIONING NEEDED. SINUS RHYTHM WITH HR 70-80'S. DENIES CHEST PAIN/PRESSURE. TEMP READING 99.6 THIS AM. DENIES ABDOMINAL PAIN/NAUSEA. PEGG TUBE IN PLACE. RECIEVEING BOLUS FEEDS AND MEDS VIA PEGG TUBE. GONZÁLES CATH DRAINING CLEAR/YELLOW URINE TO GRAVITY. BRUISING SCATTERED THROUGHOUT. BILATERAL LOWER LEG DISCOLORATION WITH DIABETIC ULCER TO LEFT LOWER LEG. EXCORIATIONS TO BUTTOCKS. CLEANED AND MEPILEX APPLIED. Q2 TURNING AND NEEDED USING LIFT. Q6 BLOOD SUGARS. BILATERAL UPPER ARM POWER GLIDES SALINE LOCKED AT THIS TIME. BILATERAL FOOT BRACES IN PLACE. CALL LIGHT IN REACH. WILL CONTINUE TO MONITOR.
--- NOTE | 2021-09-12 18:34 | NUR ---
SHIFT SUMMARY: NO ACUTE CHANGES, SEE PREVIOUS NOTE. PATIENT DID DESAT WHEN SLEEPING AND FIO2 TURNED UP TO 30%. TRACH COLLAR REMAINS IN PLACE WITH 26% FIO2 AND 7 L BLEED IN. TRACH CARE DONE. Q2 TURNING AND NEEDED. EXCORIATIONS ON BUTTOCKS CLEANED AND PICTURES IN CHART. TUBE FEEDINGS WITH WATER FLUSHED THROUGH PEGG TUBE. DENIES PAIN. MEDICATED ONCE THIS SHIFT FOR BACK/HIP PAIN. NO TELE, MEDICAL STATUS. POWERGLIDE DRESSINGS CHANGED. SOFT TOUCH CALL LIGHT IN REACH. WILL CONTINUE TO MONITOR AND REPORT OFF.
--- NOTE | 2021-09-13 05:43 | NUR ---
YIELD CLERK SUMMARY PT IS AXO X4 AND USES THE CALL LIGHT TO MAKE HIS NEEDS KNOWN. PT HAD NO OVERNIGHT EVENTS. O2 SATS >90% ON TRACH COLLAR W 26% FIO2. PT AFEBRILE THIS SHIFT W PEAK TEMP OF 99.8. BP MILDLY ELEVATED BUT STABLE. PT TURNED Q2H THROUGHOUT THE SHIFT NEEDING MAXIMUM ASSISTANCE TO TURN. WILL REPORT TO ONCOMING RN.
--- NOTE | 2021-09-13 18:26 | NUR ---
SHIFT SUMMARY NO ACUTE CHANGES NOTED THROUGH THE DAY. PT IS AWAKE, ALERT & ORIENTED X4. REPOSITIONED Q2 & PRN. PT'S DISCOVERED WHAT APPEARS TO BE A WOUND ON THE RIGHT POSTERIOR PORTION OF HIS HEAD. IT RESEMBLES A SCAB/MATTED HAIR. PT DENIES PAIN. VSS, TRACH COLLAR REMAINS AT 26%. WILL REPORT TO NOC RN. PT RESTING QUIETLY, WATCHING TV WITH HIS . CALL LIGHT IN REACH.
--- NOTE | 2021-09-13 19:45 | NUR ---
PT HAS A RECTAL TUBE - WHICH WAS REMOVED DUE TO THE CONSISTENCY OF HIS BOWEL MOVEMENT WHICH WAS THICK, PASTY IN CONSISTENCY AND HAD LEAKED AROUND THE TUBE. PT REQUIRED 4 STAFF MEMBERS TO ASSIST WITH HOLDING, CLEANING OF BOWEL MOVEMENT - NEW MEPILEX APPLIED TO COCCYX, AND PT FLOATED ON PILLOWS PER HIS PREFERENCE. PEG TUBE CLAMPED - SITE WNL TO LEFT SIDE OF ABDOMEN. GONZÁLES PATENT. SOFT TOUCH CALL LIGHT IN REACH. PT DENIES ANY COMPLAINTS OF PAIN, CHEST DISCOMFORT, NAUSEA, NUMBNESS OR TINGLING, AND SOB. PT HAS TRACH COLLAR IN PLACE - 9L OXYGEN/26% FIO2. PT DENIES ANY REQUESTS AT THIS TIME.
--- NOTE | 2021-09-14 06:29 | NUR ---
SHIFT SUMMARY - NO ACUTE CHANGES THROUGHOUT THIS SHIFT. PT IS MORBIDLY OBESE, REQUIRING LIFT AND 2-4 STAFF MEMBERS TO REPOSITION PATIENT. PT HAS SOFT TOUCH CALL LIGHT - PT IS ABLE TO NOTIFY STAFF WITH CALL LIGHT. PT IS ABLE TO ASSIST WITH LIMITED ARM MOVEMENT, BY ASSISTING WITH ARM/HAND UP ON HIS CHEST FOR BP CHECK, GREATER MOVEMENT ON RIGHT THAN LEFT ARM/HAND. PT WOULD BENEFIT FROM PHYSICAL THERAPY - REPORTED THIS ON REPORT SHEET, AND WILL REPORT THIS OFF TO AM SHIFT. NO FURTHER EPISODES OF BM AFTER RECTAL TUBE REMOVED. GONZÁLES WITH CLEAR YELLOW URINE LAST NIGHT. WILL CONTINUE TO MONITOR UNTIL AM SHIFT. PT EASILY REPOSITIONED TO FOWLERS BY REMOVING PILLOWS, WITH 1 STAFF MEMBER.
--- NOTE | 2021-09-14 11:30 | NUR ---
PATIENT TRANFERRED FROM PCU 10 TO ROOM 311 REPORTS RECEIVED FROM STACEY LAMA. PATIENT ON BARIATRIC BED. DRESSINGS TO RLE AND COCCYX REMAIN C/D/I. TUBE FEEDS 5 TIMES DAILY FOR A TOTAL OF 8 CANS. PATIENT DENIES ANY PAIN. GONZÁLES TO GRAVITY. TRACH COLLOAR WITH 9L O2 AND FIO2 OF 26%. BLOOD SUGARS Q6 HOURS. PATIENT ORIENTED TO ROOM AND USE OF CALL LIGHT, SOFT TOUCH LIGHT SET UP. PATIENT DENIES ANY FURTHER NEEDS AT THIS TIME.
--- NOTE | 2021-09-15 05:14 | NUR ---
SHIFT SUMMARY ON MRSA RESTRICTIONS. ON 26% FI02. PT HAS Q6 HR BLOOD SUGAR CHECKS AND HAS TUGE FEELINGS.R LOWER EXTREMITY WOUND, COVERED. WOUND ON BACK OF HEAD. CALL LIGHT WIHTING REACH AND WILL CONTINUE TO MONITOR.
--- NOTE | 2021-09-15 18:17 | NUR ---
SHIFT SUMMARY PATIENT IS ALERT AND ORIENTED X3-4. PATIENT IS PLEASENT AND COOPERATIVE WITH CARE. NO ACUTE EVENTS THIS SHIFT. PATIENT HAS BEEN GETTING ALL MEDICATIONS AND FEEDINGS THROUGH TUBE WITH NO INCIDENT THIS SHIFT. VITAL SIGNS REVIEWED. PATIENT IS A LIFT PATIENT AND HAS BEEN TURNED FREQUENTLY. CALL LIGHT IN PLACE. WILL MONITOR UNTIL SHIFT CHANGE.
--- NOTE | 2021-09-16 03:47 | NUR ---
SHIFT SUMMARY PT COMPLAINS OF BEING UNCOMFORTABLE AND HAS BEEN REPOSITIONED FREQUENTLY THROUGHOUT THE SHIFT. R HIP IS PAINFUL AND PT UNCOMFORTABLE. PT MEDICATED PER EMAR. PT OFFERED TYLENOL IN BETWEEN TIMES FOR PAIN MEDS, BUT HE DECLINED. PT A&O X 4. PT ON MRSA PRECAUTIONS. CALL LIGHT WITHIN REACH AND WILL CONTINUE TO MONITOR.
--- NOTE | 2021-09-16 16:32 | NUR ---
SHIFT SUMMARY PATIENT IS ALERT AND ORIENTED X3-4. PATIENT HAS BEEN REPOSITIONED Q2 BY THIS RN AND SLAB PULLER USING LIFT. PATIENT HAS HAD TUBE FEEDS ORDERED. PT MEDICATED PER EMAR. PT IS ON MRSA PRECAUTIONS. PATIENT HAD TRACH PLUGGED AT 1600 WHICH NEEDS TO BE TOLERATED FOR 24HRS FOR TRACH TO BE REMOVED. TOLERATING SO FAR. CALL LIGHT IN PLACE. WILL CONTINUE TO MONITOR UNTIL SHIFT CHANGE.
--- NOTE | 2021-09-17 06:23 | NUR ---
SHIFT SUMMARY AOX4. VSS. HR 131 @HS, GAVE SCHEDULED METOPROLOL & WNL THIS AM. REPORTED 3/10 PAIN IN BACK, MEDICATED 1X c 5MG ROXANOL. PT ASKED FOR SLEEP AID, GAVE MELATONIN PER DR MONTES & PT RESTED WELL T/O NIGHT. DENIES N/V OR SOB. TRACH WAS PLUGGED YESTERDAY @1600 & SPO2 HAS BEEN 97-100% ALL NIGHT ON RA. LS DIM T/O. PT RECIEVED BED BATH THIS AM & ALL DRESSINGS REPLACED. HAS EXCORIATIONS ON BUTTOCKS & SM QUARTER SIZE ULCER ON RLE. NIVIA PATENT & DRAINING. MEDS & BOLUS FEEDINGS GIVEN PER PEG TUBE. CALL LIGHT IN REACH. WCTM UNTIL DAY NURSE ASSUMES CARE.
--- NOTE | 2021-09-17 18:15 | NUR ---
SHIFT SUMMARY; PATIENT HAS UNEVENTFUL DAY. HE IS TURNED AT LEAST EVERY 2 HOURS. HOWEVER REFUSES TO STAY ON HIS RIGHT OR LEFT SIDE FOR VERY LONG ONLY LASTING ABOUT [address] HE USES BED PAIN ONCE AND HAS SMALL FORMED STOOL. PATIENT IS AO X 3. POWER GLIDE IN LEFT UPPER ARM IS REMOVED IT HAD TIMED OUT. NO REDNESS OR SWELLING NOTED. HIS TUBE FEEDINGS ARE HOOKED TO A [place]ANG[place]OO PUMP AND ADMIN PER SCHEDULE. PATIENTS SIGNIFICANT OTHER COMES TO VISIT AND STAYS MOST OF AFTERNOON. PATIENT IS NOTED TO BE LAUGHING AND JOKING WITH HER. LATE THIS WICHO PATIENT IS COMPLAINING OF LEG CRAMPING TO BILATERAL LOWER LEGS. HE IS CONCERNED THAT HIS TRACH WAS NOT REMOVED HE WAS TOLD IT MIGHT BE AT 1600 TODAY. WILL REMAIN AVAILABLE FOR THIS PATIENT FOR ANY WANTS OR NEEDS UNTIL HAND OFF AT SHIFT CHANGE. SILVESTRE MANTILLA RN
--- NOTE | 2021-09-18 04:23 | NUR ---
SHIFT SUMMARY A/OX4, AFFECT APPEARS WITHDRAWN. REPOSITIONED T/O NIGHT. C/O INCREASED GAS AND ABD DISCOMFORT R/T FEEDINGS, BUTTER PRINTER PROVIDER NOTIFIED. VSS, NO ACUTE CHANGES AT THIS TIME. BED IN LOWEST POSITION WITH CALL LIGHT IN REACH. WILL CONTINUE TO MONITOR AND REPORT TO ONCOMING RN.
--- NOTE | 2021-09-18 18:55 | NUR ---
SHIFT SUMMARY; PATIENT IS IRRITABLE TODAY. PER TRACH WOULD NOT BE REMOVED SINCE PRESTON IS STILL BEDFAST. HE IS A GREATER RISK FOR ASPIRATION. YASMIN DINH FITTER HELPER CHANGES PRESTON TO CONTINUOUS FEED. HE WILL START IN THE AM. PATIENT IS ENCOURAGED THROUGHOUT THE DAY TO TRY AND MOVE ARMS AND LEGS. HE IS SUCCESSFUL IN MOVING HIS RIGHT HAND TO HIS NOSE AND FORHEAD. HIS FINGERS ARE ABLE TO MOVE AND FIST CLENCHED. HE MOVES HIS LEGS AND FEET OFTEN THROUGHOUT THE DAY AND RAISES LEGS SLIGHLY FROM BED. HE BENDS HIS FEET AND WIGGLES HIS TOES. HE COMPLAINS OF HIS LEFT ARM FEELING NUMB AND TINGLY. THIS RN MOVES ARM IN ROTATION AND UP AND DOWN. PRESTON EXPRESSES THAT IT NOW IS FEELING BETTER. PT WILL COME WORK WITH PRESTON TOMORROW AND DO AN EVAL FOR DIRECTION OF CARE. SILVESTRE MANTILLA RN
--- NOTE | 2021-09-19 07:13 | NUR ---
MARKY COMPLAINED OF PAIN AT THE BEGINNING OF THE SHIFT LAST NIGHT. PROVIDER WAS CALLED AND ONE STAT ORDER OF OXYCODONE SEEMED TO HAVE HELPED HIM TO GO TO SLEEP. HIS GLUCOSE LEVEL HAS BEEN STABLE WNL THROUGHOUT THE SHIFT AND HE DID NOT NEED ANY INSULIN COVERAGE
--- NOTE | 2021-09-19 17:56 | NUR ---
SHIFT SUMMARY PATIENT MEDICATED X1 WITH TYLENOL FOR PAIN. PATIENT DECLINED SCHEDULED PAIN MEDICATIONS. PATIENT DENIES NAUSEA AND SHORTNESS OF BREATH. TUBE FEEDINGS SWITCHED BACK TO BOLUS FEEDINGS, WITH NEW ORDERS. PATIENT REPORTS NEW FORUMLA MAKES HIM LESS GASSY. PATIENT TOLERATING BOLUS FEEDINGS WELL. 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 PATIENT TRANSFERED TO CHAIR AND WORKED WITH PT. PATIENT ABLE TO SIT UP WITH MINIMAL ASSIST. PATIENT VISITED IN AFTERNOON. PATIENT IS PLEASANT AND COOPERATIVE WITH CARE.
--- NOTE | 2021-09-20 06:33 | NUR ---
PATIENT REMAINED AOX4 TRHOUGHOUT THE NIGHT. DECLINE BOLUS FEEDING BEFORE BED.MADE NO COMPLAINTS. NO INSULIN COVERAGE NEEDED HIS GLUCOSE WERE WNL
--- NOTE | 2021-09-20 17:38 | NUR ---
SHIFT SUMMARY/TRANSFER PATIENT MEDICATED FOR PAIN X1. PATIENT DENIES NAUSEA AND SHORTNESS OF BREATH. PATIENT IS A 2 PERSON TO TURN IN BED. PATIENT IS A LIFT FOR TRANSFERS. PATIENT TOLERATING TUBE FEEDING SCHEDULE WELL. PATIENT WORKED WITH PT TODAY. THEY WORKED ON NECK EXERCISES. AFTER PT, PATIENT CALLED THIS NURSE IN ROOM BECAUSE TRACH FELT WEIRD. I SAW THAT TRACH WAS STICKING OUT FARTHER THAN IT WAS BEFORE. I CALLED RT. MECHANICAL DEVELOPMENT ENGINEER WAS CALLED. PATIENT WAS DECANNULATED. TRIED TO GET PATIENT BACK IN BED, LIFT WOULD NOT WORK. PATIENT MOVED TO ROOM 352. PATIENT SETTLED INTO ROOM. BELONGINGS SENT WITH PATIENT. REPORT GIVEN TO STACEY ATKINS. IN ROOM. PATIENT IS PLEASANT AND COOPERATIVE [facility].
--- NOTE | 2021-09-20 18:19 | NUR ---
RECEIVED PATIENT AROUND 1730 DUE TO BROKEN CEILING LIFT IN PATIENTS PRIOR ROOM.HAS BEEN IN HOSPITAL SINCE 08/09 DUE TO COVID. TRANSFERS TO [facility] USING CEILING LIFT. LUNGS DIM T/O. ON R.A. TRACH TUBE CAME OUT TODAY. DRESSING TO TRACH AREA DRY WITH NO OBVIOUS DRAINAGE. TUBE FEEDINGS Q 2 HOURS WITH 1600 CARTON FEEDING MISSED. 1800 WATER FEEDING CHANGED TO CARTON FEEDING. NO RESIDUAL PRIOR TO FEEDING. BLOOD SUGAR STABLE. PATIENT MADE COMFORTABLE IN BED. TOUCH CALL LIGHT WITHIN REACH. POWERGLIDE TO RT A.C. PATENT BUT DOES NOT DRAW. UNLABORED RESPIRATIONS. ABLE TO MAKE NEEDS KNOWN. WCTM
--- NOTE | 2021-09-20 18:40 | NUR ---
LAST DRESSING CHANGE TO LEGS WAS 09/17 AND WILL BE DUE TOMORROW 09/21. WILL LET SHOWROOM SALES ASSISTANT KNOW.
--- NOTE | 2021-09-21 17:37 | NUR ---
SHIFT SUMMARY PATIENT RESTING IN BED WITH FAMILY AT BEDSIDE. PATIENT PASSED SWALLOW EVALUATION TODAY. PEG TUB CLAMPED AND TRANSITIONED TO SOFT DIET AND SITTING UP IN CHAIR FOR MEALS. TOLERATED WELL. PATIENT ABLE TO SWALLOW PILLS WITH SIPS OF WATER. PATIENT COMPLAINS OF ITCHING ON LEGS. LOTION APPLIED MULTIPLE TIMES THROUGHOUT SHIFT. DRESSINGS ON RIGHT ANTERIOR LEG, AND BILATERAL HEELS CHANGED AND DRESSING APPLIED TO BACK OF HEAD WOUND. VITAL SIGNS STABLE. WILL CONTINUE TO MONITOR
--- NOTE | 2021-09-22 03:57 | NUR ---
PT WAS ASLEEP AT THE START OF THIS SHIFT AND WOKE UP TO TAKE HS MEDS THROUGHOUT THE SHIFT NEEDED. PT. TOLERATED SWALLOWING PILLS WELL WITH SIPS OF WATER. PT. HAS SLEPT ALL OF THIS SHIFT AND THIS NURSE WILL CONTINUE TO MONITOR UNTIL REPORT IS GIVEN.
--- NOTE | 2021-09-22 17:46 | NUR ---
DAY SHIFT SUMMARY GONZÁLES IN PLACE, PATENT AND DRAINING BY GRAVITY. NO COVERAGE INDICATED TODAY FOR CBG CHECKS. LIFT TO BEDSIDE CHAIR AND LIFT BACK TO BED. ROOM AIR. REDNESS IN SKINFOLDS, C/O ITCHY SKIN, NYSTATIN CREAM USED. WOUND CARE TO LEG AND HEAD WOUND. COOPERATIVE WITH CARE. DENIES PAIN THIS SHIFT. CALL LIGHT WITHIN REACH.
--- NOTE | 2021-09-23 04:55 | NUR ---
CONTINUOUS WASHER OPERATOR SUMMARY PATIENT HAD A FAIR SHIFT. VITALS STABLE. STILL HAVING SOME ITCHING AT THE BUTTOCKS AND BACK. HE WAS CLEANED AND CREAM NYSTATIN APPLIED PRESCRIED. HE HAS SOME MILD PAIN WHICH WAS CONTROLLED WITH THE SCHEDULED PAIN MED. HE LODGED NO OTHER COMPLAINTS. WILL CONTINUE TO MONITOR HIM.
--- NOTE | 2021-09-23 16:27 | NUR ---
DAY SHIFT SUMMARY PLEASANT 55 YR OLD MALE PT, MORBIDLY OBESE. ABLE TO BE PLACED IN CHAIR AT BED SIDE AND BACK TO BED VIA DOUBLE LIFT. GONZÁLES IN PLACE, PATENT AND DRAINING BY GRAVITY. LT SIDED WEAKNESS. WOUND TO RT LEG GARCIA AREA CLEANED AND COVERED WITH MEPILEX. WOUND TO SCALP CLEANED AND COVERED WITH GAUZE. HEELS COVERED BILATERALLY WITH MEPILEX. MRSA PRECAUTIONS FOLLOWED. REDNESS IN SKIN FOLDS AND C/O OF ITCHING SKIN GENERALIZED. NYSTATIN CREAM PER ORDER. CALL LIGHT WITHIN REACH OF PT.
--- NOTE | 2021-09-24 06:31 | NUR ---
SHIFT SUMMARY PT IS A 55 Y/O MALE, ADMITTED FOR COVID-19. HE IS A&O X 3, BEDREST, LIFT PT. PT HAS WEAK MOVEMENT OF R SIDE, AND MINIMAL L SIDE MOVEMENT. PT IS A FEEDER. PT WAS MEDICATED ONCE FOR GENERALIZED PAIN WITH SCHEDULED ROXANOL. NO C/O NAUSEA OR SOB. ON RA, SATTING > 90%. VITAL SIGNS OTHERWISE STABLE. NO ACUTE CHANGES IN PT CONDITION NOTED DURING THE NIGHT. WILL CONTINUE TO MONITOR AND TREAT PER EMAR UNTIL HAND OFF TO DAY SHIFT RN.
--- NOTE | 2021-09-24 18:05 | NUR ---
SHIFT SUMMARY PATIENT MEDICATED X1 FOR PAIN. PATIENT DENIES NAUSEA AND SHORTNESS OF BREATH. PATIENT IS A LIFT TO TRANSFER. PATIENT WORKED WITH PT TODAY. ATTEMPTED TO STAND, WAS ABLE TO LIFT BOTTOM OFF CHAIR. OT ALSO WORKED WITH PATIENT TODAY. GONZÁLES IS PATENT AND DRAINING TO GRAVITY. PATIENT IS EATING AND DRINKING WELL. PATIENT IS PLEASANT AND COOPERATIVE WITH CARE.
--- NOTE | 2021-09-25 05:54 | NUR ---
SHIFT SUMMARY PT. AOX4 AND ABLE TO EXPRESS NEEDS THIS SHIFT. PT. COOPRATIVE AND HAS LITTLE TO NO ASSISTANCE WITH CARE. THE PT TOLERATED PILLS AND WATER WELL THIS SHIFT. PT. RESTED WELL AND CURRENTLY IN BED AWAITING 0600 MEDS. THIS NURSE WILL CONTINUE TO MONITOR UNTIL REPORT GIVEN.
[2021-09-25 06:12] LABS: Albumin, Blood 2.4 g/dL (3.4-5.0); Anion Gap 9 mmol/L (6-16); Blood Urea Nitrogen 21 mg/dL (8-24); CO2, Blood 24 mmol/L (21-32); Calcium, Blood 9.5 mg/dL (8.5-10.1); Chloride, Blood 103 mmol/L (98-108); Glomerular Filtration Rate >60 (60-); Glucose, Blood 125 mg/dL (70-99); Phosphorus, Blood 4.7 mg/dL (2.5-4.9); Potassium, Blood 4.5 mmol/L (3.5-5.5); Sodium, Blood 136 mmol/L (136-145)
--- NOTE | 2021-09-26 06:16 | NUR ---
SHIFT SUMMARY PT AOX4 AND WAS LAYING IN BED WATCHING TV AT THE START OF THIS SHIFT. PT. C/O BEING RESTLESS AND HAVING INSOMNIA. PT WAS MEDICATED PER EMAR AND RESTED WELL THIS SHIFT. PT DENIES ANY NEEDS AT THE MOMENT AND THIS NURSE WILL CONTINUE TO MONITOR UNITL REPORT IS GIVEN.
--- NOTE | 2021-09-26 17:49 | NUR ---
PATIENT A/OX4, UP TO THE CHAIR USING LIFT X2 TODAY, ABLE TO TOLERATE 1-[address] IN TO SEE PATIENT AND HE WAS PLACED ON A REGULAR DIET. PT IN TO WORK WITH PATIENT. DRESSING TO RLE REMAINS C/D/I. DRESSING CHANGED TO BACK OF THE HEAD AND TRACH SITE DRESSING ALSO CHANGED THIS SHIFT. VSS, ON RA. GONZÁLES TO GRAITY WITH ADEQUATE U/O. LARGE CONTINENT BM TODAY USING BEDPAN. PATIENT CALM AND COOPERATIVE WITH CARE. PAIN IMPROVING, PATIENT DID NOT REQUIRE PRN PAIN MEDICATION THIS SHIFT. AWAITING PLACEMENT AT AN IRU. S/O AT BEDSIDE THIS EVENING.
[2021-09-27 05:41] LABS: Hematocrit 36.9 % (37.0-53.0); Hemoglobin 11.8 g/dL (13.5-17.5); Mean Corpuscular HGB 32.7 pg (26.0-34.0); Mean Corpuscular Volume 102 fL (80-100); Mean Platelet Volume 9.2 fL (9.1-12.4); Platelet Count 485 K/mm3 (150-400); RDW Coefficient Variation 15.7 % (11.7-14.2); RDW Standard Deviation 59.2 fL (35.1-46.3); Red Blood Cell Count 3.61 M/mm3 (4.30-5.90); White Blood Cell Count 10.78 K/mm3 (4.00-11.30)
[2021-09-27 06:35] LABS: Albumin, Blood 2.4 g/dL (3.4-5.0); Anion Gap 10 mmol/L (6-16); Blood Urea Nitrogen 21 mg/dL (8-24); Bun/Creatinine Ratio 23.5 (12.0-20.0); CO2, Blood 24 mmol/L (21-32); Calcium, Blood 9.3 mg/dL (8.5-10.1); Chloride, Blood 103 mmol/L (98-108); Creatinine, Blood 0.89 mg/dL (0.60-1.20); Glomerular Filtration Rate >60 (60-); Glucose, Blood 127 mg/dL (70-99); Phosphorus, Blood 4.5 mg/dL (2.5-4.9); Potassium, Blood 4.5 mmol/L (3.5-5.5); Sodium, Blood 137 mmol/L (136-145)
--- NOTE | 2021-09-27 07:25 | NUR ---
UNEVENTFUL NIGHT. 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 RECEIVED PAIN PILL ONCE FOR BACK PAIN AT BEDTIME. PATIENT RECEIVED BACK AND LEG MASSAGE WITH SILICONE LOTION TO WORK ON DRY PLAQUES ON LEGS AND FEET. PATIENT LOOKING FORWARD TO PT/OT
--- NOTE | 2021-09-27 18:07 | NUR ---
PATIENT HAD A GREAT SHIFT, VERY MOTIVATED TO WORK WITH PT/OT. UP IN THE CHAIR MORE TODAY USING LIFT. WAS ABLE TO FEED HIMSELF A FEW BITES USING MODIFIED UTENSILS. TOLERATING REGULAR DIET, NO ISSUES WITH SWALLOWING. TAKING PILLS WHOLE WITH WATER. VSS, ON RA. S/O AT BEDSIDE THIS EVENING ASSISTING WITH CARE. BS ACHS, NO COVERAGE NEEDED TODAY. PATIENT AWAITING PLACEMENT FOR REHAB.
[2021-09-28 05:43] LABS: Hematocrit 37.8 % (37.0-53.0); Mean Corpuscular HGB 32.6 pg (26.0-34.0); Mean Corpuscular HGB Conc 31.7 g/dL (31.5-36.5); Mean Corpuscular Volume 103 fL (80-100); Mean Platelet Volume 9.2 fL (9.1-12.4); Platelet Count 459 K/mm3 (150-400); RDW Coefficient Variation 15.7 % (11.7-14.2); RDW Standard Deviation 59.8 fL (35.1-46.3); Red Blood Cell Count 3.68 M/mm3 (4.30-5.90); White Blood Cell Count 11.16 K/mm3 (4.00-11.30)
[2021-09-28 06:16] LABS: Iron Serum 61 ug/dL (65-175); Percent Saturation 20.5 % (20.0-50.0); Total Iron Binding Capacity 298 ug/dL (250-450)
[2021-09-28 06:37] LABS: Alanine Aminotransfer (ALT/SGP 48 U/L (12-78); Albumin, Blood 2.5 g/dL (3.4-5.0); Albumin/Globulin Ratio 0.6 (0.8-1.8); Alk Phos 92 U/L (50-136); Anion Gap 8 mmol/L (6-16); Aspartate Aminotrans (AST/SGOT 24 U/L (12-37); Bilirubin, Total 0.3 mg/dL (0.1-1.0); Blood Urea Nitrogen 20 mg/dL (8-24); CO2, Blood 24 mmol/L (21-32); Chloride, Blood 105 mmol/L (98-108); Creatinine, Blood 0.87 mg/dL (0.60-1.20); Ferritin, Serum 69 ng/mL (26-388); Glomerular Filtration Rate >60 (60-); Glucose, Blood 131 mg/dL (70-99); Potassium, Blood 4.4 mmol/L (3.5-5.5); Sodium, Blood 137 mmol/L (136-145); Thyroid Stimulating Hormone 0.938 uIU/mL (0.360-4.800); Total Protein, Blood 6.5 g/dL (6.4-8.2)
--- NOTE | 2021-09-28 06:44 | NUR ---
Topher is very encouraged with his progress and participation in his therapy. He was exhausted last night but in good spirits. One oxycodone given for back and leg pain at resolved his discomfort. Partial bed bath given with exception to hair as we felt it would be easier to shampoo and get his head dressing changed while he was up in a chair. Alert and oriented X4 and cooperative with care.
--- NOTE | 2021-09-28 17:14 | NUR ---
SHIFT SUMMARY PATIENT IS ALERT AND ORIENTED X4. PATIENT HAS WORKED WITH PHYSICAL THERAPY TODAY WITH GOOD SUCCESS. PATIENT IS ENCOURAGED WITH PROGRESS. HAS BEEN IN DURING ALL VISITING HOURS. PATIENT HAS GOTTEN A BEDBATH TODAY. NO ACUTE EVENTS THIS SHIFT. VITAL SIGNS REVIEWED. CALL LIGHT IN PLACE. WILL MONITOR UNTIL SHIFT CHANGE.
--- NOTE | 2021-09-29 04:16 | NUR ---
PATIENT HAD AN UNEVENTFUL NIGHT. SLEEPING WELL. REQUESTED PAIN MEDICATION AT HS FOR CHRONIC PAIN WITH EFFECTIVENESS. NO ACUTE CHANGES TO REPORT OF AT THIS TIME. CALL LIGHT WITHIN REACH.
--- NOTE | 2021-09-29 17:16 | NUR ---
SHIFT SUMMARY PATIENT IS ALERT AND ORIENTED X4. PATIENT WORKED WITH PT IN BED AND IS MOTIVATED TO GET HOME BEFORE CALLIE. PATIENT HAS HAD NO COMPLAINTS OF PAIN, NAUSEA, VOMITTING, OR SOB THIS SHIFT. VITAL SIGNS REVIEWED. CALL LIGHT IN REACH. WILL MONITOR UNTIL SHIFT CHANGE.
--- NOTE | 2021-09-30 00:59 | NUR ---
PATIENT REPOERTEDD NOT SLEEPING WELL. CONTACTED CELL LEAD MD AND GOT A ONE TINME DOSE OF MELATONIN. PATIENT WAS ASLEEP WHEN i WENT TO ADMINISTER. DID NOT WAKE HIM.
--- NOTE | 2021-09-30 05:40 | NUR ---
PATIENT HAS SOME DIFFICULTY SLEEPING OVERNIGHT. HE WAS AWAKE OFF AND ON. A&O X4. PATIENT IS AWARE THAT ALTHOUGH HE'D LIKE TO BE HOME FOR HIS BIRTHDAY AND CALLIE HE WILL NEED INPATIENT REHAB FIRST. RAISA VERBALIZED NO QUESTIONS OR CONCERNS. CALL LIGHT IN REACH BED IN LOWEST POSITION. WILL CONTINUE TO MONITOR UNTIL SHIFT CHANGE.
--- NOTE | 2021-09-30 07:54 | NUR ---
pt laying in bed watching tv, awake, a/ox3, pleasant and cooperative with care, follows commands well, denies pain at this time, reports he's doing ok, lungs are clear in upper [place], dim in bases, resp even and unlabored, on r/a, trach that is covered, no cough noted, hrr, trace edema noted to b/l le, ppp+1, cap refill <3sec, vs stable, afebrile, btx4, hypoactive, has peg tube in place not using, pt able to swallow without diff, solorzano cath draining clear yellow urine, skin has dressings to heel, unable to dpfe feet, but can move legs sideways a bit, music agent to right hand is strong, very weak on left, he is a lift to move oob, allison, call light in reach.
--- NOTE | 2021-09-30 18:15 | NUR ---
pt has been oob for meals via lift, no acute changes this shift. in to visit, changed dressing to back of his head as it was soiled, uneventful day. call light in reach.
--- NOTE | 2021-10-01 04:32 | NUR ---
PATIENT HAD AN UNEVENTFUL NIGHT. A&O X4. MAKES NEEDS KNOWN. REPORTS THAT HE NEEDS SOMETHING IN ADDITION FOR SLEEP AID. PATIENT IS AWAITING PLACEMENT IN INPATIENT REHAB. VITALS REVIEWED. WILL CONTINUE TO MONITOR UNTIL SHIFT CHANGE.
--- NOTE | 2021-10-01 19:15 | NUR ---
SHIFT SUMMARY UP TO RECLINER BY LIFT 2 TIMES TODAY. TO VISIT THIS EVENING TO ASSIST WITH EATING. PEG IN PLACE AND NO DISCHARGE NOTED. RECEIVED SURGERY CONSULT FOR REMOVAL AND CALLED IT IN. TRACH SITE DRESSING REMOVED AND SCAB FELL OFF WITH CLEANSING. SKIN ESSENTIALLY INTACT AND PT WISHING TO KEEP DRESSING OFF. HAS HAD NO ISSUES THROUGH THE DAY.
--- NOTE | 2021-10-02 04:48 | NUR ---
PATIENT A&O X4. PATIENT IS FRUSTRATED OVER NOT BEING ABLE TO DO MORE. TOOK ALL MEDICATIONS AND TOLERATED WELL. PATEIENT WORE ROOK BOOTS FOR A COUPLE OF HOURS THEN REQUESTED THEY BE REMOVED. EXPLAINED THE IMPORTANCE OF WEARING THEM AND PATIENT IS FULLY AWARE. VIATLS REVIEWWED. WILL CONTINUE TO MONITOR UNTIL SHIFT CHANGE.
[2021-10-02] MEDS ORDERED: METO50ER PO (11:10)
[2021-10-02] MEDS ORDERED: B-COMPLEX WITH1 EACH PO (11:11)
[2021-10-02] MEDS ORDERED: HUMULIN R100 UNIT/2 SC (11:12)
[2021-10-02] MEDS ORDERED: MELATONIN5 M1 PO (11:12)
[2021-10-02] MEDS ORDERED: NYSTATIN15 GM TOP (11:13)
[2021-10-02] MEDS ORDERED: OMEP20ER PO (11:13)
[2021-10-02] MEDS ORDERED: SENN187 PO (11:14)
[2021-10-02 11:40] LABS: Influenza A, PCR NEGATIVE (NEGATIVE); Influenza B, PCR NEGATIVE (NEGATIVE); Resp Syncytial Virus, PCR NEGATIVE (NEGATIVE); SARS-Cov-2 (COVID-19) PCR, MMC NEGATIVE (NEGATIVE)
--- NOTE | 2021-10-02 18:41 | NUR ---
PT UP TO CHAIR FOR BREAKFAST AND THEN PUT BACK TO BED. PLANS FOR DISCHARGE AT 1300 EXTENDED TO 1700. [facility] HERE TO PICK PT UP VIA W/C TO BE TRANSFERRED TO [facility]. BELONGINGS TAKEN BY . REPORT CALLED TO SUSAN. TO [facility] VIA W/C. WAS TRANSFERRED TO CHAIR VIA LIFT.
== END 2021-10-02 17:27 | DRG 4 ==
LOC: ER 10:18 → PCU 13:32 → ICUW 13:32 → MEDS 13:32 → PCU 16:45 → ICUW 18:28 → PCU 09-10 13:18 → MEDS 09-14 11:30
PROVIDERS: Family Medicine; Internal Medicine; Internal Medicine Critical Care Medicine; Nurse Practitioner Acute Care; Pharmacist; Student in an Organized Health Care Education/Training Program; ADMIT Hospitalist
PROC: 8E0ZXY6 Isolation (ICD-10-PCS; 2021-08-08)
PROC: XW033E5 Introduction of Remdesivir Anti-infective into Peripheral Vein, Percutaneous Approach, New Technology Group 5 (ICD-10-PCS; 2021-08-08)
PROC: 3E0333Z Introduction of Anti-inflammatory into Peripheral Vein, Percutaneous Approach (ICD-10-PCS; 2021-08-08)
PROC: 5A09457 Assistance with Respiratory Ventilation, 24-96 Consecutive Hours, Continuous Positive Airway Pressure (ICD-10-PCS; 2021-08-08)
PROC: 0BH17EZ Insertion of Endotracheal Airway into Trachea, Via Natural or Artificial Opening (ICD-10-PCS; principal; 2021-08-09)
PROC: 5A1955Z Respiratory Ventilation, Greater than 96 Consecutive Hours (ICD-10-PCS; 2021-08-09)
PROC: 02HV33Z Insertion of Infusion Device into Superior Vena Cava, Percutaneous Approach (ICD-10-PCS; 2021-08-09)
PROC: 3E043XZ Introduction of Vasopressor into Central Vein, Percutaneous Approach (ICD-10-PCS; 2021-08-09)
PROC: 0B113F4 Bypass Trachea to Cutaneous with Tracheostomy Device, Percutaneous Approach (ICD-10-PCS; 2021-08-27)
PROC: 0BJ08ZZ Inspection of Tracheobronchial Tree, Via Natural or Artificial Opening Endoscopic (ICD-10-PCS; 2021-08-27)
PROC: 0DH63UZ Insertion of Feeding Device into Stomach, Percutaneous Approach (ICD-10-PCS; 2021-09-07)
PROC: 3E0G76Z Introduction of Nutritional Substance into Upper GI, Via Natural or Artificial Opening (ICD-10-PCS; 2021-09-07)
PROC: 0BP1XFZ Removal of Tracheostomy Device from Trachea, External Approach (ICD-10-PCS; 2021-09-20)
PROC: 3E02340 Introduction of Influenza Vaccine into Muscle, Percutaneous Approach (ICD-10-PCS; 2021-09-21)
PROC: 0DP6XUZ Removal of Feeding Device from Stomach, External Approach (ICD-10-PCS; 2021-09-21)
DX: A41.89 Other specified sepsis (principal); U07.1 COVID-19; J12.82 Pneumonia due to coronavirus disease 2019; J96.01 Acute respiratory failure with hypoxia; J15.212 Pneumonia due to Methicillin resistant Staphylococcus aureus; R65.21 Severe sepsis with septic shock; G92.8 Other toxic encephalopathy; I48.92 Unspecified atrial flutter; N17.9 Acute kidney failure, unspecified; Z68.43 Body mass index [BMI] 50.0-59.9, adult; E87.2 Acidosis; M62.82 Rhabdomyolysis; I24.8 Other forms of acute ischemic heart disease; E87.0 Hyperosmolality and hypernatremia; Z23 Encounter for immunization; Z78.1 Physical restraint status; N30.00 Acute cystitis without hematuria; J95.03 Malfunction of tracheostomy stoma; A41.02 Sepsis due to Methicillin resistant Staphylococcus aureus; G72.9 Myopathy, unspecified; T38.0X5A Adverse effect of glucocorticoids and synthetic analogues, initial encounter; E87.6 Hypokalemia; J98.2 Interstitial emphysema; G93.89 Other specified disorders of brain; E11.65 Type 2 diabetes mellitus with hyperglycemia; G47.00 Insomnia, unspecified; L30.4 Erythema intertrigo; I48.91 Unspecified atrial fibrillation; R93.5 Abnormal findings on diagnostic imaging of other abdominal regions, including retroperitoneum; K21.9 Gastro-esophageal reflux disease without esophagitis; I12.9 Hypertensive chronic kidney disease with stage 1 through stage 4 chronic kidney disease, or unspecified chronic kidney disease; D63.1 Anemia in chronic kidney disease; E11.22 Type 2 diabetes mellitus with diabetic chronic kidney disease; N18.30 Chronic kidney disease, stage 3 unspecified; E66.01 Morbid (severe) obesity due to excess calories; Z79.84 Long term (current) use of oral hypoglycemic drugs; Z79.899 Other long term (current) drug therapy; Y82.8 Other medical devices associated with adverse incidents
CPT/HCPCS: 0241U; 31500; 31502; 31720; 36415; 36556; 36569; 36600; 51702; 51703; 70450; 71045; 71260; 72125; 76604; 80048; 80053; 80069; 80202; 81001; 82140; 82330; 82550; 82553; 82607; 82728; 82746; 82803; 82947; 83036; 83540; 83550; 83605; 83735; 83880; 84100; 84145; 84443; 84478; 84484; 85025; 85027; 85379; 85610; 85651; 85730; 86140; 87040; 87070; 87077; 87086; 87147; 87186; 87205; 87493; 90686; 92526; 92610; 93005; 93010; 93306; 93971; 94003; 94640; 94660; 94760; 94762; 96365; 96366; 96367; 96368; 96375; 97110; 97112; 97163; 97167; 97530; 97535; 99285-25; A9270; C1751; C9113; J0282; J0330; J0360; J0456; J0692; J0696; J1100; J1650; J1815; J1940; J2020; J2250; J2543; J2704; J2920; J2930; J3010; J3370; J3480; J7030; J7050; J7060; J7070; J7120; J7512; P9046; Q9967

== ENCOUNTER 2023-08-25 09:04 | Emergency (ER) | payer OTHER ==
[~2023-08-25] VITALS: Ht 180.3 cm; Wt 181.4 kg
[~2023-08-25 09:04] MED LIST: Amoxicillin500 M1 PO; B-COMPLEX WITH1 EACH PO; CYCL10 PO; GLIMEPIRIDE2 M2 PO; HUMULIN R100 UNIT/2 SC; MELATONIN5 M1 PO; METO50ER PO; METOPROLOL TART25 MG PO; NYSTATIN15 GM TOP; OMEP20ER PO; Potassium Chlo20 ME1 PO; SENN187 PO; ZESTRIL40 M1 PO
[2023-08-25 10:17] LABS: Source, Urine Clean Catch
[2023-08-25 10:20] LABS: BASOPHILS ABSOLUTE AUTO 0.08 K/mm3 (0.00-0.23); BASOPHILS PERCENT AUTO 1 % (0-2); EOSINOPHILS ABSOLUTE AUTO 0.22 K/mm3 (0.00-0.68); EOSINOPHILS PERCENT AUTO 1 % (0-6); Hematocrit 44.6 % (37.0-53.0); Hemoglobin 13.5 g/dL (13.5-17.5); IMMATURE GRAN ABSOLUTE AUTO 0.05 K/mm3 (0.00-0.10); IMMATURE GRAN PERCENT AUTO 0 % (0-1); LYMPHOCYTES ABSOLUTE AUTO 1.08 K/mm3 (0.84-5.20); LYMPHOCYTES PERCENT AUTO 7 % (21-46); MONOCYTES ABSOLUTE AUTO 0.69 K/mm3 (0.16-1.47); MONOCYTES PERCENT AUTO 4 % (4-13); Mean Corpuscular HGB 30.3 pg (26.0-34.0); Mean Corpuscular HGB Conc 30.3 g/dL (31.5-36.5); Mean Corpuscular Volume 100 fL (80-100); Mean Platelet Volume 9.3 fL (9.1-12.4); NEUTROPHILS PERCENT AUTO 87 % (41-73); Platelet Count 293 K/mm3 (150-400); RDW Standard Deviation 62.9 fL (35.1-46.3); Red Blood Cell Count 4.45 M/mm3 (4.30-5.90); White Blood Cell Count 16.22 K/mm3 (4.00-11.30)
[2023-08-25 10:23] LABS: Appearance, Urine Clear (Clear); Bilirubin, Urine Neg (Neg); Blood, Urine Neg (Neg); Glucose Qualitative, Urine Neg (Neg); Ketones, Urine Neg (Neg); Leukocyte Esterase, Urine Neg (Neg); Nitrite, Urine Neg (Neg); Protein, Urine Neg (Neg); Urobilinogen, Urine NORM (Normal)
[2023-08-25 10:30] LABS: Color, Urine Pale Yellow (P-Yellow)
[2023-08-25 10:42] LABS: Albumin, Blood 2.9 g/dL (3.4-5.0); Albumin/Globulin Ratio 0.6 (0.8-1.8); Bilirubin, Total 0.5 mg/dL (0.1-1.0); Bun/Creatinine Ratio 19.5 (12.0-20.0); Calcium, Blood 9.4 mg/dL (8.5-10.1); Creatinine, Blood 1.49 mg/dL (0.60-1.20); Globulin, Blood 5.2 g/dL (2.2-4.0); Total Protein, Blood 8.1 g/dL (6.4-8.2)
[2023-08-25 16:00] VITALS: BP 137/99
== END 2023-08-25 16:25 | disposition home or self-care (01) ==
LOC: ER 09:04
PROVIDERS: Physician Assistant
DX: R53.1 Weakness (principal); G47.33 Obstructive sleep apnea (adult) (pediatric); Z68.43 Body mass index [BMI] 50.0-59.9, adult; Z88.8 Allergy status to other drugs, medicaments and biological substances; Z79.899 Other long term (current) drug therapy; Z79.4 Long term (current) use of insulin; I12.9 Hypertensive chronic kidney disease with stage 1 through stage 4 chronic kidney disease, or unspecified chronic kidney disease; N18.30 Chronic kidney disease, stage 3 unspecified; E11.22 Type 2 diabetes mellitus with diabetic chronic kidney disease; E66.01 Morbid (severe) obesity due to excess calories
CPT/HCPCS: 71046; 80053; 81003; 83880; 84443; 84484; 85025; 99283-25